=== PATIENT | female | born 1995 | race Caucasian/White ===

== ENCOUNTER 2021-08-06 14:44 | Observation (INO) | payer OTHER, SELFPAY ==
[2021-08-06] VITALS (18 sets, daily range): BP systolic 117; BP diastolic 68–70; PULSE 87–132; O2SAT 100; BMI 28.3
--- NOTE | ~2021-08-06 | US_ITS ---
EXAMINATION: US OB limited w BPP DATE: 08/06/2021 16:33 INDICATION: Contractions during third trimester . Assess amniotic fluid index and biophysica l profile. TECHNIQUE: Real-time pelvic ultrasound was performed. The interpreting radiologist was not present fo r the study. COMPARISON: None. FINDINGS: There is a single living fetus in vertex presentation. The placenta is fundal. heart rate is 1 38 beats per minute (bpm). Normal amniotic fluid index of 15.6 cm (5th%-95%: 7.7-24.9 cm at 36 weeks estimated gestational age) Biophysical profile performed by the technologist: breathing (30 sec sustained breathing in 30 minutes): 2 out of 2 movement (3 gross body movements in 30 minutes): 2 out of 2 tone (one episode of txyncqb-gedjcymcl-hmjohul limb movement): 2 out of 2 Amniotic fluid pocket (2 cm): 2 out of 2 Total score: 8 out of 8 IMPRESSION: 1. Single living fetus in vertex presentation with heart rate of 138 bpm. 2. Biophysical profile 8 out of 8. 3. Normal amniotic fluid index of 15.6 cm. Reviewed, dictated and finalized at location A.
--- NOTE | 2021-08-06 15:34 | OBADM ---
This patient, Dina Martin, admitted to the OB room OB Post 116 for observation. Patient/family oriented to hospital policies and general routines including ID bracelet, bed and alarms, visiting hours, pain management, procedures, bathroom and other care routines, personal items, smoking policy, room service/diet, and visiting hours. Patient/Family are encouraged to report perceived risks to care and to ask questions if they do not understand what they are told or what they should do.
[2021-08-06] MEDS: NIFEdipine 10 MG CAPSULE PO (17:04)
[2021-08-06] MEDS: ACETAMINOPHEN 500 MG TABLET 1000 MG PO (17:18)
--- NOTE | 2021-08-06 17:44 | PC.NURSE ---
0816- Spoke with Mikhail Servin, CNLoida, BPP and alfredito reviewed. Patient now karrie q 2-4 min on monitor. Orders for one time dose of procardia 10 mg to be given PO. Patient denies feeling strong contractions, just feels tightening.
[2021-08-06] MEDS: TERBUTALINE SULFATE 1 MG/ML VIAL 0.25 MG SUB-Q (17:56)
--- NOTE | 2021-08-06 17:56 | PC.NURSE ---
1750- Spoke with Mikhail Servin CNM, patient complains of mild tightening still. contractions palpate mild, though still karrie q2-3. Orders for terbutaline sub q 0.25 mg once.
[2021-08-06 20:35] LABS: Add Urine Microscopic? YES; Amorphous Sediment Urine Few; Appearance Urine Clear (Clear); Bacteria Urine 1+ /hpf; Bilirubin Urine Negative (Negative); Blood Urine Negative (Negative); Color Urine Straw (Yellow); Glucose Urine UA Negative (Negative); Ketones Urine 1+ mg/dL (Negative); Leukocyte Esterase Ur Negative LEU/UL (Negative); Nitrate Urine Negative (Negative); Protein Urine Negative (Negative); RBC Urine 0-2 /hpf (0-2); Specific Grav Ur 1.005 (1.001-1.035); Squamous Epithelial Cell Urine Rare /hpf (Few); Urobilinogen Urine Negative mg/dL (<2.0); WBC Urine 0-3 /hpf
--- NOTE | 2021-08-26 10:00 | PM.OBTRLD ---
OB - Triage/Final Diagnosis Visit Information Comments/Additional reasons for admission: I have assessed the risk for this patient, Dina Martin, and determined that she would benefit from observation care. Evaluation Laboratory results: Laboratory Tests 08/06/21 20:22 Urine Color Straw Urine Appearance Clear Urine pH 6.0 Ur Specific [place] 1.005 Urine Protein Negative Urine Glucose (UA) Negative Urine Ketones 1+ H Ur Blood (Man) Negative Urine Nitrate Negative Urine Bilirubin Negative Urine Urobilinogen Negative Leukocyte Esterase Rfl Negative Urine RBC 0-2 Urine WBC 0-3 Ur Squamous Epith Cells Rare Amorphous Sediment Few H Urine Bacteria 1+ H Final Diagnosis (1) False labor: Code(s): O47.9 - False labor, unspecified Status: Acute
== END 2021-08-06 20:56 | disposition home or self-care (01) ==
PROVIDERS: Advanced Practice Midwife; Admitting Provider Obstetrics & Gynecology; PCP Family Medicine; Referring Provider Advanced Practice Midwife; Visit Provider Obstetrics & Gynecology
DX: O47.03 False labor before 37 completed weeks of gestation, third trimester (principal); Z3A.35 35 weeks gestation of pregnancy
CPT/HCPCS: 76815; 76819; 81001; 96372; A9270; G0378; G0379; J3105

== ENCOUNTER 2021-09-05 10:23 | Inpatient (IN) | payer OTHER, SELFPAY ==
[2021-09-05] VITALS (151 sets, daily range): BP systolic 92–145; BP diastolic 44–127; PULSE 25–162; RESP 18; TEMP 37–37.3; O2SAT 97–100; BMI 29.3
--- NOTE | 2021-09-05 10:23 | LDADM ---
This patient, Dina Martin, was admitted to Labor/Delivery/Recovery 107 on 09/05/21 at 10:23. Plans for labor, pain management and were discussed with patient. Patient/family oriented to hospital policies and general routines including ID bracelet, bed and alarms, visiting hours, pain management, procedures, bathroom and other care routines, personal items, smoking policy, room service/diet and guest tray routines, security routines, and visiting hours. Patient/Family are encouraged to report perceived risks to care and to ask questions if they do not understand what they are told or what they should do. See OBIX for further documentation.
--- OUTSIDE RECORDS SUMMARY | 2021-09-05 10:30 | XMS_ITS ---
:1995 Author Care Team Providers Name Role Phone KATHRINE AMBROSIO MD Primary Care Provider [phone] Allergies Code Code System Name Reaction Severity Status Onset 6157373 RxNorm Coconut Cough Mild Active ? 168261 RxNorm Macrobid Hives Mild to Active ? Moderate Nitrofuran Hives Mild to Active ? Analogues Moderate 7454 RxNorm Nitrofurantoin Hives Mild to Active ? Moderate Medications Name Status Start Date Stop Date ? ? Beano Completed ? 05/16/2021 ceftriaxone 250 mg solution for Completed ? 03/22/2021 injection cephalexin 500 mg capsule Completed ? 2020 TAKE 1 CAPSULE BY MOUTH TWICE A DAY FOR 7 DAYS cephalexin 500 mg tablet Completed ? 021 Take 1 tablet twice a day by oral route for 5 days. ciprofloxacin 500 mg tablet Completed ? 04/2021 Flucelvax Quad (PF) 60 mcg (15 mcg x 4)/0.5 mL IM syri nge Completed ? 01/24/2021 PHARMACY ADMINISTERED 12/06 (21) 1 mg-20 mcg tablet Completed 10/13/2017 10/13/2017 take 1 tablet by oral route every day Junel FE 12/06 (28) 1 mg-20 mcg (21)/75 mg (7) tablet Completed 10/29/2018 11/02/2018 take 1 tablet by oral route every day Microgestin Fe 1.5 (28) 1.5 mg-30 mcg (21)/75 mg (7) tabl et Completed 09/18/2015 10/13/2017 take 1 tablet by oral route every day NuvaRing 0.12 mg-0.015 mg/24 hr vaginal Completed ? 10/30/2020 Insert 1 vaginal ring every month by vaginal route.
--- OUTSIDE RECORDS SUMMARY | 2021-09-05 10:31 | XMS_ITS | Encounter Summary ---
:1995 Author Care Team Providers Name Role Phone Kevin Clark MD Primary Care Provider [phone] Reason for Visit OB visit OB [id number] EDC 09/05/2021 LMP 11/18/2020 Assessment and Plan Assessment Note Patient is _39__weeks . Dis cussed plan. 1. Routine care Discussion Note: None recorded.Patient educational handouts: No information available. Plan of Care Reminders Provider Appointments Induction Bren Cole, 09/11/2021 CNM 4:00PM Lab None ? ? recorded. Referral None ? ? recorded. Procedures None ? ? recorded. Surgeries None ? ? recorded. Imaging None ? ? recorded. Medications Name Start Date ? ? ? Tylenol ? Medications Administered None recorded. Vitals Height Weight BMI Blood Pressure 5 ft 4.5 in 168 lbs 28.4 kg/m2 124/85 mm[Hg] Results Lab Results None recorded. Allergies Code Code System Name Reaction Severity Onset [id number] RxNorm Coconut Cough Mild ? 543249 RxNorm Macrobid Hives Mild to ? Moderate
--- OUTSIDE RECORDS SUMMARY | 2021-09-05 10:31 | XMS_ITS | Encounter Summary ---
:1995 Author Care Team Providers Name Role Phone Kevin Clark MD Primary Care Provider [phone] Reason for Visit OB visit OB [id number] EDC 09/05/2021 LMP 11/18/2020 Assessment and Plan Assessment Note Patient is __40_weeks . Dis cussed plan. 1. Routine care Discussion Note: None recorded.Patient educational handouts: No information available. Plan of Care Reminders Provider Appointments Induction Bren E Kelsey, 09/11/2021 CNM 4:00PM Lab None ? ? recorded. Referral None ? ? recorded. Procedures None ? ? recorded. Surgeries None ? ? recorded. Imaging None ? ? recorded. Medications Name Start Date ? ? ? Tylenol ? Medications Administered None recorded. Vitals Height Weight BMI Blood Pressure 5 ft 4.5 in 170 lbs 28.7 kg/m2 (1) 148/91 mm[H g] (2) 146/90 mm[Hg ] Results Lab Results None recorded. Allergies Code Code System Name Reaction Severity Onset [id number] RxNorm Coconut Cough Mild ? 002138 RxNorm Macrobid Hives Mild to ?
--- OUTSIDE RECORDS SUMMARY | 2021-09-05 10:32 | XMS_ITS | Encounter Summary ---
:1995 Author Care Team Providers Name Role Phone Kevin Clark MD Primary Care Provider [phone] Reason for Visit OB visit Assessment and Plan 1. Routine care Discussion Note: None recorded.Patient [...] BMI Blood Pressure 5 ft 4.5 in 162 lbs 27.4 kg/m2 116/77 mm[Hg] Results Lab Results None recorded. Allergies Code Code System Name Reaction Severity Onset 8386044 RxNorm Coconut Cough Mild ? 473674 RxNorm Macrobid Hives Mild to ? Moderate Nitrofuran Analogues Hives Mild to ? Moderate
--- OUTSIDE RECORDS SUMMARY | 2021-09-05 10:32 | XMS_ITS | Encounter Summary ---
:1995 Author Care Team Providers Name Role Phone Kevin Clark MD Primary Care Provider [phone] Reason for Visit OB visit OB [id number] EDC 09/05/2021 LMP 11/18/2020 Assessment and Plan Assessment Note Patient is _34__weeks . Dis cussed plan. 1. Routine care [...] BMI Blood Pressure 5 ft 4.5 in 164 lbs 27.7 kg/m2 104/67 mm[Hg] Results Lab Results None recorded. Allergies Code Code System Name Reaction Severity Onset 8643533 RxNorm Coconut Cough Mild ? 593397 RxNorm Macrobid Hives Mild to ? Moderate
--- OUTSIDE RECORDS SUMMARY | 2021-09-05 10:32 | XMS_ITS | Encounter Summary ---
:1995 Author Care Team Providers Name Role Phone Kevin Clark MD Primary Care Provider [phone] Reason for Visit OB visit 32w1d Assessment and Plan 1. Routine care Discussion [...] BMI Blood Pressure 5 ft 4.5 in 161 lbs 27.2 kg/m2 120/76 mm[Hg] Results Lab Results None recorded. Allergies Code Code System Name Reaction Severity Onset 9569613 RxNorm Coconut Cough Mild ? 454931 RxNorm Macrobid Hives Mild to ? Moderate Nitrofuran Analogues Hives Mild to ? Moderate
--- OUTSIDE RECORDS SUMMARY | 2021-09-05 10:32 | XMS_ITS | Encounter Summary ---
:1995 Author Care Team Providers Name Role Phone Kevin Clark MD Primary Care Provider [phone] Reason for Visit OB visit 37w2d Assessment and Plan Assessment Note Patient is 37__weeks . Disc ussed plan. 1. Routine care Discussion Note: None recorded.Patient educational handouts: No information available. Plan of Care Reminders Provider Appointments Induction Bren Abrams Kelsey, 09/11/2021 CNM 4:00PM Lab None ? ? recorded. Referral None ? ? recorded. Procedures None ? ? recorded. Surgeries None ? ? recorded. Imaging None ? ? recorded. Medications Name Start Date ? ? ? Tylenol ? Medications Administered None recorded. Vitals Height Weight BMI Blood Pressure 5 ft 4.5 in 169 lbs 28.6 kg/m2 132/76 mm[Hg] Results Lab Results None recorded. Allergies Code Code System Name Reaction Severity Onset 4793627 RxNorm Coconut Cough Mild ? 455446 RxNorm Macrobid Hives Mild to ? Moderate
--- OUTSIDE RECORDS SUMMARY | 2021-09-05 10:32 | XMS_ITS | Encounter Summary ---
:1995 Author Care Team Providers Name Role Phone Kevin Clark MD Primary Care Provider [phone] Reason for Visit OB visit OB [id number] EDC 09/05/2021 lmp 11/18/2020 Assessment and Plan Assessment Note Patient is _36__weeks . Dis cussed plan. 1. Routine care [...] BMI Blood Pressure 5 ft 4.5 in 167 lbs 28.2 kg/m2 118/76 mm[Hg] Results Lab Results None recorded. Allergies Code Code System Name Reaction Severity Onset 0569645 RxNorm Coconut Cough Mild ? 042696 RxNorm Macrobid Hives Mild to ? Moderate
--- OUTSIDE RECORDS SUMMARY | 2021-09-05 10:32 | XMS_ITS | Encounter Summary ---
:1995 Author Care Team Providers Name Role Phone Kevin Clark MD Primary Care Provider [phone] Reason for Visit OB visit OB [id number] EDC 09/05/2021 LMP 11/18/2020 Assessment and Plan Assessment Note Patient is __38_weeks . Dis cussed plan. 1. Routine care [...] ft 4.5 in 168 lbs 28.4 kg/m2 123/81 mm[Hg] Results Lab Results None recorded. Allergies Code Code System Name Reaction Severity Onset 7161112 RxNorm Coconut Cough Mild ? 393100 RxNorm Macrobid Hives Mild to ? Moderate
--- OUTSIDE RECORDS SUMMARY | 2021-09-05 10:33 | XMS_ITS | Encounter Summary ---
:1995 Author Care Team Providers Name Role Phone Kevin Clark MD Primary Care Provider [phone] Reason for Visit OB visit OB [id number] EDC 09/05/2021 LMP 11/18/2020 Assessment and Plan Assessment Note Patient is _28__weeks . Dis cussed plan. 1. Routine care [...] BMI Blood Pressure 5 ft 4.5 in 160 lbs 27 kg/m2 108/66 mm[Hg] Results Lab Results None recorded. Allergies Code Code System Name Reaction Severity Onset 3960543 RxNorm Coconut Cough Mild ? 662911 RxNorm Macrobid Hives Mild to ? Moderate
[2021-09-05 11:46] LABS: Basophils Percent Auto 0.2 % (0.2-1.2); Eosinophils Absolute Auto 0.1 K/mm3 (0-0.3); Eosinophils Percent Auto 0.8 % (0-4.4); Hematocrit 38.3 % (37.0-47.0); Hemoglobin 13.4 g/dL (12.0-15.0); Immature Granulocyte Absolute 0.05 K/mm3 (0.00-0.031); Immature Granulocyte Percent A 0.6 % (0-0.5); Lymphocytes Absolute Auto 2.18 K/mm3 (0.9-3.2); Lymphocytes Percent Auto 26.1 % (18.3-44.2); Mean Corpuscular Hemoglobin 31.2 pg (26-34); Mean Corpuscular Volume 89.3 fl (80-100); Monocytes Absolute Auto 0.7 K/mm3 (0.1-0.6); Monocytes Percent Auto 8.9 % (2.6-8.5); Neutrophils Absolute Auto 5.3 K/mm3 (1.3-6.7); Neutrophils Percent Auto 63.4 % (45.5-73.1); Platelet Count Result 189 k/mm3 (150-375); Red Blood Count 4.29 M/mm3 (4.2-5.4); Red Cell Distribution Width 12.9 % (11.5-14.5); White Blood Count 8.4 K/mm3 (4.5-10.0)
[2021-09-05 11:48] LABS: Add Urine Microscopic? NO; Appearance Urine Clear (Clear); Bilirubin Urine Negative (Negative); Blood Urine Negative (Negative); Color Urine Straw (Yellow); Glucose Urine UA Negative (Negative); Ketones Urine Negative (Negative); Leukocyte Esterase Ur Negative LEU/UL (Negative); Nitrate Urine Negative (Negative); Protein Urine Negative (Negative); Urobilinogen Urine Negative mg/dL (<2.0)
[2021-09-05] MEDS: OXYTOCIN 30 UNITS/NS 500 ML 30 UNITS/500 ML BAG 6 UNITS IV CONT (11:48)
[2021-09-05 11:49] LABS: Specific Grav Ur 1.003 (1.001-1.035)
[2021-09-05] MEDS: LACTATED RINGERS 1,000 ML 125 ML IV CONT ×3 (11:50→23:51)
[2021-09-05 12:01] LABS: Alanine Aminotransferase 16 U/L (4-35); Albumin Level 3.8 g/dL (3.5-5.1); Alkaline Phosphatase 142 U/L (38-126); Anion Gap 8 mmol/L (8-16); Aspartate Amino Transferase 26 U/L (14-36); Bilirubin,Total 0.5 mg/dL (0.2-1.3); Blood Urea Nitrogen 6 mg/dL (7-17); Calcium 9.6 mg/dL (8.4-10.2); Carbon Dioxide 19 mmol/L (22-30); Chloride 111 mmol/L (98-107); Estimated CRCL calculation 120 ml/min; Estimated Glomerular Filt Rate > 60; Glucose 89 mg/dL (65-110); Potassium 3.9 mmol/L (3.4-5.0); Sodium 138 mmol/L (137-145)
--- NOTE | 2021-09-05 12:14 | WPDOBADMIT ---
Obstetrics - Admit Note Admission Note: record reviewed. No pertinent additions to the history and/or any subsequent changes in the physical findings that are not consistent with the expected course of the were found. BP elevated in office, GHTN at 40 wks, MIL cervix 1-2/60/-2, AROm small amount of clear odorless fluid Additions to the history and/or subsequent changes in the physical findings follow. None.
[2021-09-05 12:23] LABS: Uric Acid 6.1 mg/dL (2.5-7.5)
[2021-09-05] MEDS: ONDANSETRON INJ 4 MG/2 ML VIAL IV PUSH (15:16)
--- NOTE | 2021-09-05 16:39 | WPDANESEPP ---
Anes - Eval Pre Procedure Procedure: labor epidural Date/Time: 09/05/21 16:39 Surgeon: mendoza Pre Op Diagnosis: IOL Patient Data Age: 26 Gender: F Height: 1.63 m Weight: 77.5 kg Last Vital Signs Temp 37.3 C 09/05/21 15:30 Pulse 98 09/05/21 16:31 BP 124/66 09/05/21 16:31 Allergies Allergy/AdvReac Type Severity Reaction Status Date / Time nitrofurantoin AdvReac Intermediate hives Verified 01/03/21 16:28 Home Medications Medication Instructions Recorded Confirmed Type PNV cmb#95-ferrous fumarate-FA 1 tablet PO DAILY 08/06/21 09/05/21 History [] calcium carbonate [Tums] 500 mg PO DAILY PRN 09/05/21 09/05/21 History diphenhydramine-acetaminophen 2 tablet PO HS PRN 09/05/21 09/05/21 History [Tylenol PM Extra Strength] Laboratory Tests 09/05/21 09/05/21 09/05/21 11:30 11:30 11:30 WBC 8.4 K/mm3 K/mm3 (4.5-10.0) RBC 4.29 M/mm3 M/mm3 (4.2-5.4) Hgb 13.4 g/dL g/dL (12.0-15.0) Hct 38.3 % % (37.0-47.0) MCV 89.3 fl fl (80-100) MCH 31.2 pg pg (26-34) MCHC 35.0 g/dl g/dl (32-36) RDW 12.9 % % (11.5-14.5) Plt Count 189 k/mm3 k/mm3 (150-375) MPV 11.0 fl H fl (7.4-10.4) Immature Gran % (Auto) 0.6 % H % (0-0.5) Neut % (Auto) 63.4 % % (45.5-73.1) Lymph % (Auto) 26.1 % % (18.3-44.2) [place] % (Auto) 8.9 % H % (2.6-8.5) Eos % (Auto) 0.8 % % (0-4.4) Baso % (Auto) 0.2 % % (0.2-1.2) Lymph # (Auto) 2.18 K/mm3 K/mm3 (0.9-3.2) [place] # (Auto) 0.7 K/mm3 H K/mm3 (0.1-0.6) Eos # (Auto) 0.1 K/mm3 K/mm3 (0-0.3) Baso # (Auto) 0.0 K/mm3 K/mm3 (0.0-0.1) Abs Immat Gran (auto) 0.05 K/mm3 H K/mm3 (0.00-0.031) Absolute Neuts (auto) 5.3 K/mm3 K/mm3 (1.3-6.7) Absolute Nucleated RBC 0.0 K/mm3 K/mm3 (0.0-0.012) Nucleated RBC % 0.0 % % (0.0-0.2) Sodium Potassium Chloride Carbon Dioxide Anion Gap BUN Creatinine Estim Creat Clear Calc Estimated GFR Glucose Uric Acid Cancelled Calcium Total Bilirubin AST ALT Alkaline Phosphatase Total Protein Albumin Urine Color Urine Appearance Urine pH Ur Specific [place] Urine Protein Urine Glucose (UA) Urine Ketones Ur Blood (Man) Urine Nitrate Urine Bilirubin Urine Urobilinogen Leukocyte Esterase Rfl U Random Total Protein Urine Creatinine Protein/Creat Ratio 2 RPR Pending Blood Type Antibody Screen 09/05/21 09/05/21 09/05/21 11:30 11:30 11:30 WBC RBC Hgb Hct MCV MCH MCHC RDW Plt Count MPV Immature Gran % (Auto) Neut % (Auto) Lymph % (Auto) [place] % (Auto) Eos % (Auto) Baso % (Auto) Lymph # (Auto) [place] # (Auto) Eos # (Auto) Baso # (Auto) Abs Immat Gran (auto) Absolute Neuts (auto) Absolute Nucleated RBC Nucleated RBC % Sodium 138 mmol/L mmol/L (137-145) Potassium 3.9 mmol/L mmol/L (3.4-5.0) Chloride 111 mmol/L H mmol/L (98-107) Carbon Dioxide 19 mmol/L L mmol/L (22-30) Anion Gap 8 mmol/L mmol/L (8-16) BUN 6 mg/dL L mg/dL (7-17) Creatinine 0.60 mg/dL L mg/dL (0.7-1.0) Estim Creat Clear Calc
[2021-09-05 18:25] LABS: Creatinine Urine 20.2 mg/dL; Total Protein Urine Random 12 mg/dL; Ur Ttl Prot Creatinine Ratio 0.59 mg/mg (0-0.20)
[2021-09-06] VITALS (39 sets, daily range): BP systolic 120–149; BP diastolic 69–109; PULSE 71–168; RESP 16–20; TEMP 36.7–37.7; O2SAT 84–100
[2021-09-06] MEDS: miSOPROStol 200 MCG TABLET 1000 MCG RECTAL (01:56)
[2021-09-06] MEDS: OXYTOCIN 30 UNITS/NS 500 ML 30 UNITS/500 ML BAG 125 UNITS IV CONT (01:58)
--- NOTE | 2021-09-06 02:00 | P.PCNOB_ITS ---
OB - Delivery Note Procedure Delivery date: 09/06/21 Procedure: vaginal delivery events: Induced HTN Induction method: AROM and per pitocin protocol Delivery monitor: external FHT, external uterine and internal uterine Route of delivery: Episiotomy description: Right Mediolateral (2nd degree with extension to right labia) Delivery repair: vicryl Specimen: Yes Quantitative Blood Loss (ml): 435 Anesthesia type: Epidural Disposition: floor [facility] Date of : 09/06/21 Time of : 01:29 Weeks of gestation at delivery: 40 Infant gender: Female presentation: vertex position: Left Occiput Anterior Placenta delivery description: Spontaneous cord vessel description: 3 Vessels, Nuchal Cord, Loose, Reduced and Clamped/Cut Narrative: heart rate in the 50's, consent from pt, RML, head easily delivered and cord around neck reduced, delivered quickly after, mother and baby in stable condition
[2021-09-06] MEDS: IBUPROFEN 600 MG TABLET PO ×3 (04:03→17:14)
[2021-09-06] MEDS: WITCH HAZEL 40 PADS 1 PAD TOPICAL (04:03)
[2021-09-06] MEDS: BENZOCAINE 20% AER SPR (*SP) 56 GM CAN 1 SPRAY TOPICAL (04:03)
[2021-09-06 07:31] LABS: Rapid Plasma Reagin Non-Reactive (NonReactive)
[2021-09-06] MEDS: DOCUSATE SODIUM 100 MG CAPSULE PO ×2 (09:32→17:14)
[2021-09-06] MEDS: MULTIVIT/MIN/PREN/FOL AC/IRON TABLET 1 TAB PO (09:32)
[2021-09-07 03:00] VITALS: BP 124/84; PULSE 77
[2021-09-07] MEDS: IBUPROFEN 600 MG TABLET PO ×3 (03:05→23:00)
[2021-09-07 05:31] LABS: Hematocrit 31.7 % (37.0-47.0); Hemoglobin 10.8 g/dL (12.0-15.0)
[2021-09-07 07:40] VITALS: BP 126/80; PULSE 71; RESP 18; TEMP 36.6; O2SAT 100
--- NOTE | 2021-09-07 07:45 | PM.OBPNVD ---
OB - PN: Subj Subjective Date/time seen: 09/07/21 07:45 Patient comments: no complaints, pain well controlled, incisional pain, tolerating diet and flatus present OB - PN: Obj Data Labs CBC & Chem 7: 09/07/21 03:02 09/05/21 11:30 Labs: Laboratory Results - last 24 hr 09/07/21 03:02 Hgb 10.8 L Hct 31.7 L OB - PN A/P Plan day: 1 Plan: routine care Comments: No problems, routine care Time Spent With Patient Time: Total time spent is greater than 50% in coordination of care (as documented) at patient's floor/unit and/or counseling patient: Exam Const: General: comfortable, no acute distress and alert Resp: Effort & Inspection: normal respiratory effort Auscultation: no crackles, no rales and no rhonchi Cardio: Rate: regular rate Heart sounds: no click, no murmurs and no rubs GI: Inspection: non-distended GI Palp: No Tenderness to palpation present (GI) Auscultation: normal bowel sounds Other: Incision - CDI Extrem: General: normal to inspection, no pedal edema and no calf tenderness
[2021-09-07] MEDS: MULTIVIT/MIN/PREN/FOL AC/IRON TABLET 1 TAB PO (07:49)
[2021-09-07] MEDS: DOCUSATE SODIUM 100 MG CAPSULE PO ×2 (07:49→19:50)
--- NOTE | 2021-09-07 10:18 | WPDANLDPN2 ---
Anes-Prog Note L&D Date/Time: 09/07/21 10:18 Comfortable throughout: labor and delivery Neuraxial method: epidural Epidural/Spinal procedure site: clean & non-tender Neuro status: Neuro function grossly intact. Cardiovascular status: normal Respiratory status: normal Airway patency: baseline Mental status: baseline Post-Op hydration status: normal Vital Signs: Last Vital Signs Temp 97.8 F 09/07/21 07:40 Pulse 71 09/07/21 07:40 Resp 18 09/07/21 07:40 BP 126/80 09/07/21 07:40 Pulse Ox 100 09/07/21 07:40 Pain score (VAS): 0 I/O: Intake & Output 09/06/21 09/07/21 09/07/21 23:59 07:59 15:59 Intake Total 2300 700 Output Total 3550 2600 Balance -1250 -1900 Post-procedural complaints: none Patient feedback: Patient satisfied with anesthetic care.
[2021-09-07 11:20] VITALS: BP 117/76; PULSE 70; RESP 18; TEMP 37.1; O2SAT 99
[2021-09-07 19:40] VITALS: BP 152/88; PULSE 60; RESP 16; TEMP 36.7
[2021-09-07 23:00] VITALS: BP 126/79; PULSE 61
--- NOTE | 2021-09-07 23:00 | PC.NURSE ---
Patient viewed the discharge video Mother & Baby Care, The First Two Weeks online. Patient was given the opportunity and encouraged to ask questions. Patient verbalized understanding of information shared and has been given the mother/baby guide for home reference.
[2021-09-08] MEDS: BENZOCAINE 20% AER SPR (*SP) 56 GM CAN 1 SPRAY TOPICAL (07:28)
[2021-09-08] MEDS: WITCH HAZEL 40 PADS 1 PAD TOPICAL (07:28)
[2021-09-08] MEDS: MULTIVIT/MIN/PREN/FOL AC/IRON TABLET 1 TAB PO (07:28)
[2021-09-08] MEDS: IBUPROFEN 600 MG TABLET PO (07:28)
[2021-09-08] MEDS: DOCUSATE SODIUM 100 MG CAPSULE PO (07:28)
[2021-09-08] MEDS: LANOLIN (LANSINOH) 7.5 GM CREAM 1 APPLIC TOPICAL (07:29)
[2021-09-08 08:00] VITALS: BP 138/78; PULSE 73; RESP 18; TEMP 36.5
--- NOTE | 2021-09-08 09:33 | P.PNOB_ITS ---
OB - PN: Subj Subjective Date/time seen: 09/08/21 09:33 Patient comments: no complaints, pain well controlled and tolerating diet OB - PN: Obj Data Labs CBC & Chem 7: 09/07/21 03:02 09/05/21 11:30 OB - PN A/P Plan day: 2 Plan: routine care and discharge home Time Spent With Patient Time: Total time spent is greater than 50% in coordination of care (as docume nted) at patient's floor/unit and/or counseling patient: Exam Const: General: comfortable and no acute distress Resp: Effort & Inspection: normal respiratory effort Auscultation: no rales, no rhonchi and no wheezes Cardio: Rate: regular rate Heart sounds: no click, no murmurs and no rubs GI: GI Palp: Yes Soft to palpation and No Tenderness to palpation present (GI) Auscultation: normal bowel sounds Extrem: General: normal to inspection, no pedal edema and no calf tenderness
--- NOTE | 2021-09-08 09:34 | PM.OBDSVD ---
DS: Admitting Diagnosis Discharge Date 09-08-2021 Admitting Diagnosis term DS: Discharge Diagnosis Discharge Diagnosis (1) Term delivered: Code(s): O80 - Encounter for full-term uncomplicated delivery Status: Acute OB - DS: Summary OB Procedures : None OB Procedures Intrapartum: Spontaneous Vag Delivery OB Procedures: : None Time Spent with Patient Time attestation: Total time spent providing and/or coordinating discharge services: DS: Data Data Completed and Pending Pending studies at discharge: Pending at discharge 09/06/21 01:37 Surgical [PTH] Routine Discharge Plan Discharge Patient Disposition: Home Health Service Patient Instructions: Antibiotic Form Stand Alone Forms: General Discharge Information Follow-up/Referrals: Nader Bañuelos MD [Physician] - Discharge Medications: Continued PNV cmb#95-ferrous fumarate-FA [] 28 mg iron- 800 mcg Tablet 1 tablet PO DAILY RF: 0 calcium carbonate [Tums] 200 mg calcium (500 mg) Tablet,Chewable 500 mg PO DAILY PRN (Reason: Heartburn) RF: 0 diphenhydramine-acetaminophen [Tylenol PM Extra Strength] 25-500 mg Tablet 2 tablet PO HS PRN (Reason: Sleep) RF: 0 Date of admission: 09/05/21 10:23 Primary Care Provider: Kevin Clark Admitting Provider: Nader Bañuelos Attending physician on admission: Nader Bañuelos Condition: Stable
--- NOTE | 2021-09-08 12:17 | PC.NURSE ---
Self care and infant care discharge instructions given including follow up visit date and time. Pt. verbalized understanding. No questions or concerns voiced. Very pleasant and cooperative.
[2021-09-10 10:33] VITALS: BP 132/69; PULSE 82; RESP 20; TEMP 36.9; O2SAT 100
== END 2021-09-08 13:10 | disposition home or self-care (01) | DRG 807 ==
LOC: ANHLDR 10:28 → ANHOB2 09-06 04:35
PROVIDERS: Admitting Provider Obstetrics & Gynecology; PCP Family Medicine; Referring Provider Advanced Practice Midwife; Visit Provider Obstetrics & Gynecology
DX: O13.4 Gestational [pregnancy-induced] hypertension without significant proteinuria, complicating childbirth (principal); Z37.0 Single live birth; O70.1 Second degree perineal laceration during delivery; O69.81X0 Labor and delivery complicated by cord around neck, without compression, not applicable or unspecified; Z3A.40 40 weeks gestation of pregnancy
CPT/HCPCS: 36415; 80053; 81003; 82570; 84156; 84550; 85014; 85018; 85025; 86592; 86850; 86900; 86901; 88307; A9270; J2405; J2590; J2795; J7120

== ENCOUNTER 2023-08-18 21:40 | Observation (INO) | payer OTHER, SELFPAY ==
[2023-08-18 22:00] VITALS: PULSE 86; O2SAT 100
[2023-08-18 22:01] VITALS: BP 117/62; PULSE 76; PULSE 79; O2SAT 100
[2023-08-18 22:02] VITALS: BP 117/66; PULSE 73
[2023-08-18 22:33] LABS: Appearance Urine Clear (Clear); Bilirubin Urine Negative (Negative); Blood Urine Negative (Negative); Color Urine Yellow (Yellow); Glucose Urine UA Negative (Negative); Ketones Urine Negative (Negative); Leukocyte Esterase Ur Negative LEU/UL (Negative); Nitrate Urine Negative (Negative); Protein Urine Negative (Negative); Specific Grav Ur 1.004 (1.001-1.035); Urobilinogen Urine 0.2 mg/dL (<2.0); pH Urine 7.5 (5.0-9.0)
[2023-08-18 22:37] LABS: Add Urine Microscopic? NO
--- NOTE | 2023-09-14 20:23 | P.PNOB_ITS ---
OB - Triage/Final Diagnosis Visit Information Comments/Additional reasons for admission: I have assessed the risk for this patient, Dina Martin, and determined that she would benefit from observation care. Evaluation Laboratory results: Laboratory Tests 08/18/23 22:17 Urine Color Yellow Urine Appearance Clear Urine pH 7.5 Ur Specific [place] 1.004 Urine Protein Negative Urine Glucose (UA) Negative Urine Ketones Negative Ur Blood (Man) Negative Urine Nitrate Negative Urine Bilirubin Negative Urine Urobilinogen 0.2 Leukocyte Esterase Rfl Negative Final Diagnosis (1) False labor: Code(s): O47.9 - False labor, unspecified Status: Acute
== END 2023-08-18 23:13 | disposition home or self-care (01) ==
LOC: ANHOBPP 21:45
PROVIDERS: Admitting Provider Obstetrics & Gynecology; PCP Family Medicine; Visit Provider Obstetrics & Gynecology
DX: O47.9 False labor, unspecified (principal); Z3A.00 Weeks of gestation of pregnancy not specified
CPT/HCPCS: 81003; G0378; G0379

== ENCOUNTER 2023-09-08 11:30 | Observation (INO) | payer OTHER, SELFPAY ==
[2023-09-08] VITALS (7 sets, daily range): BP systolic 106–109; BP diastolic 55–59; PULSE 101–115; RESP 18; TEMP 36.6–37.5; BMI 26.1
--- NOTE | ~2023-09-08 | US_ITS ---
EXAMINATION: US renal BI DATE: 09/08/2023 13:48 INDICATION: Right-sided back pain. Known urinary tract infection. TECHNIQUE: Multiple ultrasound grayscale images of the kidneys were obtained. COMPARISON: None. FINDINGS: The right kidney measures 10.9 x 6.1 x 6.3 cm. The left kidney measures 12.4 x 5.2 x 4.8 cm. The kidn eys demonstrate normal echogenicity. There is moderate right-sided and mild left-sided hydronephrosis . The visualized proximal right ureter also appears dilated. No shadowing stones identified. The blad randy is normal. A left-sided ureteral jet. A right-sided ureteral jet but no left-sided ureteral jet i s visualized in the bladder on color Doppler. IMPRESSION: 1. Moderate right hydroureteronephrosis and mild left hydronephrosis. Reviewed, dictated and finalized at location A.
--- NOTE | 2023-09-08 12:14 | PC.NURSE ---
Juli Cole notified of adm for back pain, positive urine culture per office and low grade temp. Orders received.
[2023-09-08] MEDS: HYDROcodone/acetaminophen (*CRX) 5-325 MG TABLET 1 TAB PO ×3 (13:56→22:22)
[2023-09-08] MEDS: LACTATED RINGERS 1,000 ML 125 ML IV CONT ×2 (14:10→20:21)
[2023-09-08] MEDS: cefTRIAXone 2 GM/NS 100 ML 2 GM/100 ML BAG IVPB (14:11)
[2023-09-08 14:25] LABS: Basophils Percent Auto 0.2 % (0.2-1.2); Eosinophils Percent Auto 0.1 % (0-4.4); Hematocrit 35.9 % (37.0-47.0); Hemoglobin 11.6 g/dL (12.0-15.0); Immature Granulocyte Absolute 0.05 K/mm3 (0.00-0.031); Immature Granulocyte Percent A 0.5 % (0-0.5); Lymphocytes Absolute Auto 0.76 K/mm3 (0.9-3.2); Mean Corpuscular HGB Conc 32.3 g/dl (32-36); Mean Corpuscular Hemoglobin 30.6 pg (26-34); Mean Corpuscular Volume 94.7 fl (80-100); Mean Platelet Volume 9.1 fl (7.4-10.4); Neutrophils Percent Auto 83.2 % (45.5-73.1); Platelet Count Result 228 k/mm3 (150-375); Red Blood Count 3.79 M/mm3 (4.2-5.4); Red Cell Distribution Width 13.2 % (11.5-14.5); White Blood Count 10.9 K/mm3 (4.5-10.0)
--- NOTE | 2023-09-08 14:33 | LDADM ---
This patient, Dina Martin, was admitted to OB Post 117 on 09/08/23 at 11:30. Plans for labor, pain management and were discussed with patient. Patient/family oriented to hospital policies and general routines including ID bracelet, bed and alarms, visiting hours, pain management, procedures, bathroom and other care routines, personal items, smoking policy, room service/diet and guest tray routines, infant security routines, and visiting hours. Patient/Family are encouraged to report perceived risks to care and to ask questions if they do not understand what they are told or what they should do. See OBIX for further documentation.
[2023-09-08 14:36] LABS: Alanine Aminotransferase 12 U/L (6-35); Albumin Level 3.5 g/dL (3.5-5.1); Alkaline Phosphatase 116 U/L (38-126); Anion Gap 7 mmol/L (8-16); Aspartate Amino Transferase 21 U/L (14-36); Bilirubin,Total 0.9 mg/dL (0.2-1.3); Blood Urea Nitrogen 4 mg/dL (7-17); Calcium 8.3 mg/dL (8.4-10.2); Carbon Dioxide 18 mmol/L (22-30); Chloride 104 mmol/L (98-107); Estimated CRCL calculation 144 ml/min; Estimated Glomerular Filt Rate > 60; Glucose 68 mg/dL (65-110); Potassium 3.4 mmol/L (3.4-5.0); Sodium 129 mmol/L (137-145)
--- NOTE | 2023-09-08 14:46 | PC.NURSE ---
At 1400, Magy Cole CNM at bedside discussing plan of care with patient. Patient to stay overnight to receive IV fluids and antibiotics. Patient agrees with plan of care at this time. Patient comfortable in bed with warm blankets and heating pad on her back. Menu given to patient with instructions to order dinner when she is ready.
--- NOTE | 2023-09-08 16:28 | PM.IMHP ---
H&P: HPI History of Present Illness Date/Time: 09/08/23 16:28 Chief Complaint: pt arrived to after diagnosed UTI in office, now has complaints of mild fever, low/mid back pain. Denies urinary pressure and frequency. urine culture form office positive for klebsiella pneumoniae. Suspectable to ceftriaxone. + movement Review of Systems Review of Systems: All systems reviewed & are unremarkable except as noted in HPI and below PMFSH Surgical History Surgical History History of tonsillectomy Family History Family History Mother Hypertension Grandparent Malignant neoplasm of prostate Social History Social History Social History: Smoking status: Never smoker Second hand tobacco smoke exposure: No Alcohol intake: current Drinks per week: 2 Substance use: never Substance use type: does not use Living arrangements: with family Occupation/Education: occupation Gender identity (if verbalized by the patient): Female Sexual Orientation (if Verbalized by the Patient): Straight or Heterosexual Spiritual care concerns: No Meds Home Medications and Allergies Home Medications Medication Instructions Recorded Confirmed Type calcium carbonate 200 mg calcium 500 mg PO DAILY PRN Heartburn 09/05/21 01/10/23 History (500 mg) chewable tablet (Tums) diphenhydramine 25 2 tablet PO HS PRN Sleep 09/05/21 01/10/23 History mg-acetaminophen 500 mg tablet (Tylenol PM Extra Strength) sertraline 50 mg tablet 50 mg PO DAILY 01/10/23 01/10/23 History Allergies Allergy/AdvReac Type Severity Reaction Status Date / Time nitrofurantoin AdvReac Intermediate hives Verified 01/10/23 08:59 Vital Signs Vital Signs - 24 hr 09/08/23 12:15 09/08/23 16:12 09/08/23 12:15 Temperature 37.5 C Pulse Rate 106 H 115 H Blood Pressure 106/59 L 109/55 L Oxygen Delivery 09/08/23 14:30 Temperature Pulse Rate Blood Pressure Oxygen Delivery Room Air Exam Const: General: cooperative and ill appearing (cheeks flushed) Chest: Chest palpation & inspection: normal inspection of the chest Resp: Effort & Inspection: normal respiratory effort Cardio: Rate: regular rate Rhythm: regular rhythm GI: Other: gravid/soft Back/Spine/Pelvis: Other: tender over bilateral CVA Neuro: General: patient oriented x3 Extrem: Right lower extremity: normal to inspection Left lower extremity: normal to inspection H&P: Results Labs Labs: Short CBC 09/08/23 Range/Units 13:47 WBC 10.9 H (4.5-10.0) K/mm3 Hgb 11.6 L (12.0-15.0) g/dL Hct 35.9 L (37.0-47.0) % Plt Count 228 (150-375) k/mm3 BMP 09/08/23 13:47 Sodium 129 L Potassium 3.4 Chloride 104 Carbon Dioxide 18 L BUN 4 L Creatinine 0.40 L Glucose 68 Calcium 8.3 L Liver Function 09/08/23 Range/Units 13:47 Total Bilirubin 0.9 (0.2-1.3) mg/dL AST 21 (14-36) U/L ALT 12 (6-35) U/L Alkaline Phosphatase 116 (38-126) U/L Albumin 3.5 (3.5-5.1) g/dL Assessment and Plan Assessment and plan (1) Pyelonephritis affecting : Code(s): O23.00 - Infections of kidney in , unspecified trimester Status: Acute Plan suspect pyelonephritis plan antibiotics, IV hydration and pain management NST Q shift co-managing with Dr. Garza
[2023-09-08] MEDS: ACETAMINOPHEN 325 MG TABLET 650 MG PO ×2 (17:12→23:50)
--- NOTE | 2023-09-08 18:36 | PC.NURSE ---
Spoke with CNM on phone regarding overnight patient care. Verbal orders received to repeat CBC, CMP in AM and keep continuous IV fluids running overnight.
[2023-09-08] MEDS: ONDANSETRON INJ 4 MG/2 ML VIAL IV PUSH (23:52)
[2023-09-09] VITALS (10 sets, daily range): BP systolic 97–102; BP diastolic 51–55; PULSE 86–89; RESP 18; TEMP 36.1–37.4
[2023-09-09] MEDS: LACTATED RINGERS 1,000 ML 125 ML IV CONT ×2 (04:19→12:12)
[2023-09-09 04:39] LABS: Hemoglobin 9.4 g/dL (12.0-15.0); Mean Corpuscular HGB Conc 32.4 g/dl (32-36); Mean Corpuscular Hemoglobin 30.4 pg (26-34); Mean Corpuscular Volume 93.9 fl (80-100); Platelet Count Result 196 k/mm3 (150-375); Red Blood Count 3.09 M/mm3 (4.2-5.4); Red Cell Distribution Width 13.2 % (11.5-14.5); White Blood Count 9.5 K/mm3 (4.5-10.0)
[2023-09-09 04:49] LABS: Potassium 3.4 mmol/L (3.4-5.0)
[2023-09-09 04:51] LABS: Alanine Aminotransferase 12 U/L (6-35); Albumin Level 2.7 g/dL (3.5-5.1); Alkaline Phosphatase 93 U/L (38-126); Anion Gap 6 mmol/L (8-16); Aspartate Amino Transferase 18 U/L (14-36); Bilirubin,Total 0.6 mg/dL (0.2-1.3); Blood Urea Nitrogen 4 mg/dL (7-17); Calcium 8.1 mg/dL (8.4-10.2); Carbon Dioxide 21 mmol/L (22-30); Chloride 107 mmol/L (98-107); Estimated CRCL calculation 184 ml/min; Estimated Glomerular Filt Rate > 60; Glucose 85 mg/dL (65-110); Sodium 134 mmol/L (137-145)
--- NOTE | 2023-09-09 07:35 | P.PNOB_ITS ---
OB - PN: Subj Subjective Date/time seen: 09/09/23 07:35 Interval history: pt here and being treated for suspected pyelonephritis, afebrile overnight, white count has decreased, pt still taking pain medication for back pain, denies vomiting. + movement OB - PN: Obj Data Labs 09/09/23 04:30 09/09/23 04:30 Labs: Laboratory Results - last 24 hr 09/08/23 09/09/23 13:47 04:30 WBC 10.9 H 9.5 RBC 3.79 L 3.09 L Hgb 11.6 L 9.4 L Hct 35.9 L 29.0 L MCV 94.7 93.9 MCH 30.6 30.4 MCHC 32.3 32.4 RDW 13.2 13.2 Plt Count 228 196 MPV 9.1 9.0 Immature Gran % (Auto) 0.5 Neut % (Auto) 83.2 H Lymph % (Auto) 7.0 L [place] % (Auto) 9.0 H Eos % (Auto) 0.1 Baso % (Auto) 0.2 Lymph # (Auto) 0.76 L [place] # (Auto) 1.0 H Eos # (Auto) 0.0 Baso # (Auto) 0.0 Abs Immat Gran (auto) 0.05 H Absolute Neuts (auto) 9.0 H Absolute Nucleated RBC 0.0 Nucleated RBC % 0.0 Sodium 129 L 134 L Potassium 3.4 3.4 Chloride 104 107 Carbon Dioxide 18 L 21 L Anion Gap 7 L 6 L BUN 4 L 4 L Creatinine 0.40 L 0.30 L Estim Creat Clear Calc 144 184 Estimated GFR > 60 > 60 Glucose 68 85 Calcium 8.3 L 8.1 L Total Bilirubin 0.9 0.6 AST 21 18 ALT 12 12 Alkaline Phosphatase 116 93 Total Protein 7.0 6.0 L Albumin 3.5 2.7 L Imaging Radiologist's impression: Impressions Renal Ultrasound 09/08/23 13:59 IMPRESSION: 1. Moderate right hydroureteronephrosis and mild left hydronephrosis. OB - PN A/P Assessment and Plan (1) Pyelonephritis affecting : Code(s): O23.00 - Infections of kidney in , unspecified trimester Status: Acute Plan pyelonephritis continue IV hydration, IV antibiotics plan discharge home this afternoon amoxicillin at pharmacy and will follow as directed paco for pain management at discharge co-managing with DR. Stephani Garza Time Spent With Patient Time: Total time spent is greater than 50% in coordination of care (as documented) at patient's floor/unit and/or counseling patient: Review of Systems Review of Systems: All systems reviewed & are unremarkable except as noted in HPI and below Exam Const: General: cooperative and healthy appearing Chest: Chest palpation & inspection: normal inspection of the chest Resp: Effort & Inspection: normal respiratory effort Cardio: Rate: regular rate Rhythm: regular rhythm GI: Other: soft/gravid Skin: General skin exam: normal color Neuro: General: patient oriented x3 Extrem: Right lower extremity: normal to inspection Left lower extremity: normal to inspection
[2023-09-09] MEDS: HYDROcodone/acetaminophen (*CRX) 5-325 MG TABLET 1 TAB PO ×2 (07:42→12:15)
[2023-09-09] MEDS: ONDANSETRON INJ 4 MG/2 ML VIAL IV PUSH (09:20)
[2023-09-09] MEDS: cefTRIAXone 2 GM/NS 100 ML 2 GM/100 ML BAG IVPB (14:11)
[2023-09-09] MEDS: ACETAMINOPHEN 325 MG TABLET 650 MG PO (14:21)
--- NOTE | 2023-09-10 16:28 | PM.OBTRLD ---
OB - Triage/Final Diagnosis Visit Information Date of evaluation: 09/08/23 Reason for evaluation: other (pyelonephritis) Comments/Additional reasons for admission: I have assessed the risk for this patient, Dina Martin, and determined that she would benefit from observation care. Evaluation Laboratory results: Laboratory Tests 09/08/23 09/09/23 13:47 04:30 WBC 10.9 H 9.5 RBC 3.79 L 3.09 L Hgb 11.6 L 9.4 L Hct 35.9 L 29.0 L MCV 94.7 93.9 MCH 30.6 30.4 MCHC 32.3 32.4 RDW 13.2 13.2 Plt Count 228 196 MPV 9.1 9.0 Immature Gran % (Auto) 0.5 Neut % (Auto) 83.2 H Lymph % (Auto) 7.0 L [place] % (Auto) 9.0 H Eos % (Auto) 0.1 Baso % (Auto) 0.2 Lymph # (Auto) 0.76 L [place] # (Auto) 1.0 H Eos # (Auto) 0.0 Baso # (Auto) 0.0 Abs Immat Gran (auto) 0.05 H Absolute Neuts (auto) 9.0 H Absolute Nucleated RBC 0.0 Nucleated RBC % 0.0 Sodium 129 L 134 L Potassium 3.4 3.4 Chloride 104 107 Carbon Dioxide 18 L 21 L Anion Gap 7 L 6 L BUN 4 L 4 L Creatinine 0.40 L 0.30 L Estim Creat Clear Calc 144 184 Estimated GFR > 60 > 60 Glucose 68 85 Calcium 8.3 L 8.1 L Total Bilirubin 0.9 0.6 AST 21 18 ALT 12 12 Alkaline Phosphatase 116 93 Total Protein 7.0 6.0 L Albumin 3.5 2.7 L
== END 2023-09-09 15:30 | disposition home or self-care (01) ==
PROVIDERS: Advanced Practice Midwife; Admitting Provider Obstetrics & Gynecology; PCP Family Medicine; Visit Provider Obstetrics & Gynecology
DX: O23.02 Infections of kidney in pregnancy, second trimester (principal); Z3A.25 25 weeks gestation of pregnancy
CPT/HCPCS: 36415; 59025; 76775; 80053; 85025; 85027; 96361; 96365; 96374; 96375; A9270; G0378; G0379; J0696; J2405; J7120

== ENCOUNTER 2023-10-15 18:08 | Observation (INO) | payer OTHER, SELFPAY ==
--- NOTE | 2023-10-15 18:08 | OBADM ---
This patient, Dina Martin, admitted to the OB room OB Post 117 for observation. Patient/family oriented to hospital policies and general routines including ID bracelet, bed and alarms, visiting hours, pain management, procedures, bathroom and other care routines, personal items, smoking policy, room service/diet, and visiting hours. Patient/Family are encouraged to report perceived risks to care and to ask questions if they do not understand what they are told or what they should do.
[2023-10-15 18:45] VITALS: BP 106/57; PULSE 76
[2023-10-15 18:46] VITALS: BP 102/62; PULSE 79
[2023-10-15 19:00] VITALS: BP 101/55; PULSE 74
[2023-10-15 19:15] VITALS: BP 102/56; PULSE 73; BMI 26.4
[2023-10-15 19:22] LABS: Appearance Urine Clear (Clear); Bacteria Urine None Seen /hpf; Bilirubin Urine Negative (Negative); Blood Urine Negative (Negative); Color Urine Yellow (Yellow); Glucose Urine UA Negative (Negative); Ketones Urine Negative (Negative); Leukocyte Esterase Ur Trace LEU/UL (NEGATIVE); Need Manual Microscopic Reviewed; Nitrate Urine Negative (Negative); Non Pathogenic Casts 0-2; Protein Urine Negative (Negative); RBC Urine 0-2 /hpf (0-2); Specific Grav Ur 1.004 (1.001-1.035); Squamous Epithelial Cell Urine Occasional /hpf (Few); Urobilinogen Urine 0.2 mg/dL (<2.0); WBC Urine 0-5 /hpf (0-3)
[2023-10-15 19:30] VITALS: BP 99/56; PULSE 75
[2023-10-15 19:35] LABS: Add Urine Microscopic? YES
[2023-10-15 20:05] VITALS: TEMP 36.8
[2023-10-15 20:18] LABS: Glucose Point of Care 62 mg/dl (65-105)
[2023-10-15] MEDS: BETAMETHASONE SOD PHOS/ACETATE 30 MG/5 ML VIAL 12 MG IM (20:20)
[2023-10-15] MEDS: TERBUTALINE SULFATE 1 MG/ML VIAL 0.25 MG SUB-Q (20:20)
--- NOTE | 2023-10-16 17:08 | P.PNOB_ITS ---
OB - Triage/Final Diagnosis Visit Information Date of evaluation: 10/15/23 Reason for evaluation: threatened labor Comments/Additional reasons for admission: I have assessed the risk for this patient, Dina Martin, and determined that she would benefit from observation care. Evaluation Laboratory results: Laboratory Tests 10/15/23 10/15/23 18:44 20:14 POC Capillary Glucose 62 L Urine Color Yellow Urine Appearance Clear Urine pH 7.0 Ur Specific [place] 1.004 Urine Protein Negative Urine Glucose (UA) Negative Urine Ketones Negative Ur Blood (Man) Negative Urine Nitrate Negative Urine Bilirubin Negative Urine Urobilinogen 0.2 Ur Leukocyte Esterase Trace H Add Ur Microanalysis Reviewed Urine RBC 0-2 Urine WBC 0-5 Ur Squamous Epith Cells Occasional Urine Bacteria None seen Urine Casts 0-2 Vital signs: Vital Signs - 24 hr 10/15/23 18:45 10/15/23 18:46 10/15/23 19:00 Temperature Pulse Rate 76 79 74 Blood Pressure 106/57 L 102/62 101/55 L Oxygen Delivery 10/15/23 19:15 10/15/23 19:30 10/15/23 20:05 Temperature 36.8 C Pulse Rate 73 75 Blood Pressure 102/56 L 99/56 L Oxygen Delivery 10/15/23 19:15 Temperature Pulse Rate Blood Pressure Oxygen Delivery Room Air
== END 2023-10-15 21:40 | disposition home or self-care (01) ==
PROVIDERS: Advanced Practice Midwife; Admitting Provider Obstetrics & Gynecology; PCP Family Medicine; Visit Provider Obstetrics & Gynecology
DX: O47.03 False labor before 37 completed weeks of gestation, third trimester (principal); Z3A.30 30 weeks gestation of pregnancy
CPT/HCPCS: 81001; 82948; 87086; 87088; 96372; G0378; G0379; J0702; J3105

== ENCOUNTER 2023-10-16 20:48 | Outpatient (CLI) | payer OTHER, SELFPAY ==
[2023-10-16] MEDS: BETAMETHASONE SOD PHOS/ACETATE 30 MG/5 ML VIAL 12 MG IM (20:58)
== END 2023-10-16 20:49 | disposition home or self-care (01) ==
LOC: ANHOBOP 20:51
PROVIDERS: PCP Family Medicine; Visit Provider Obstetrics & Gynecology
DX: Z34.90 Encounter for supervision of normal pregnancy, unspecified, unspecified trimester (principal); Z3A.00 Weeks of gestation of pregnancy not specified
CPT/HCPCS: 96372; J0702

== ENCOUNTER 2023-10-22 16:15 | Observation (INO) | payer OTHER, SELFPAY ==
[2023-10-22 16:30] VITALS: BP 107/62; PULSE 96
[2023-10-22 16:31] VITALS: BP 106/62; PULSE 91
[2023-10-22 16:45] VITALS: BP 108/61; PULSE 85
[2023-10-22 17:00] VITALS: BP 108/63; PULSE 91
--- NOTE | 2023-10-23 15:20 | PM.OBTRLD ---
OB - Triage/Final Diagnosis Visit Information Date of evaluation: 10/22/23 Reason for evaluation: threatened labor Comments/Additional reasons for admission: I have assessed the risk for this patient, Dina Martin, and determined that she would benefit from observation care. Evaluation Vital signs: Vital Signs - 24 hr 10/22/23 16:30 10/22/23 16:31 10/22/23 16:45 Pulse Rate 96 91 85 Blood Pressure 107/62 106/62 108/61 Oxygen Delivery 10/22/23 17:00 10/22/23 16:30 Pulse Rate 91 Blood Pressure 108/63 Oxygen Delivery Room Air
== END 2023-10-22 17:16 | disposition home or self-care (01) ==
PROVIDERS: Admitting Provider Obstetrics & Gynecology; PCP Family Medicine; Visit Provider Obstetrics & Gynecology
DX: O47.03 False labor before 37 completed weeks of gestation, third trimester (principal); Z3A.31 31 weeks gestation of pregnancy
CPT/HCPCS: G0378; G0379

== ENCOUNTER 2023-10-29 17:57 | Observation (INO) | payer OTHER, SELFPAY ==
[2023-10-29] VITALS (17 sets, daily range): BP systolic 117; BP diastolic 71; PULSE 70–104; O2SAT 97–100; BMI 27.6
--- NOTE | 2023-10-29 18:45 | P.HP_ITS ---
H&P: HPI History of Present Illness Date/Time: 10/29/23 18:45 Chief Complaint: pt presents with increase in contractions, taking procardia 30mg xl daily. betamethasone has been given x 2 at previous admission. complicated by history of pyelonephritis and is on daily keflex. FHR category 1 with uterine irritability [facility] Surgical History Surgical History History of tonsillectomy Family History Family History Mother Hypertension Grandparent Malignant neoplasm of prostate Social History Social History Social History: Smoking status: Never smoker Second hand tobacco smoke exposure: No Alcohol intake: current Drinks per week: 2 Substance use: never Substance use type: does not use Living arrangements: with family Occupation/Education: occupation Gender identity (if verbalized by the patient): Female Sexual Orientation (if Verbalized by the Patient): Straight or Heterosexual Spiritual care concerns: No Meds Home Medications and Allergies Home Medications Medication Instructions Recorded Confirmed Type calcium carbonate 200 mg calcium 500 mg PO DAILY PRN Heartburn 09/05/21 10/29/23 History (500 mg) chewable tablet (Tums) diphenhydramine 25 2 tablet PO HS PRN Sleep 09/05/21 01/10/23 History mg-acetaminophen 500 mg tablet (Tylenol PM Extra Strength) A/B/C/D-E Vitamins 10/29/23 History aspirin 81 mg tablet mg PO 10/29/23 History cephalexin 500 mg tablet mg 10/29/23 History nifedipine 30 mg tablet,extended mg PO 10/29/23 History release 24 hr (Procardia XL) Allergies Allergy/AdvReac Type Severity Reaction Status Date / Time nitrofurantoin AdvReac Intermediate hives Verified 01/10/23 08:59 Vital Signs Vital Signs - 24 hr 10/29/23 18:14 Pulse Rate 86 Blood Pressure 117/71 Exam Const: General: cooperative Chest: Chest palpation & inspection: normal inspection of the chest Resp: Effort & Inspection: normal respiratory effort Cardio: Rate: regular rate GI: Other: soft Back/Spine/Pelvis: Back: no CVA tenderness Skin: General skin exam: normal color Extrem: Right lower extremity: normal to inspection Left lower extremity: normal to inspection Psych: Appearance: grossly normal Assessment and Plan Assessment and plan (1) contractions: Code(s): O47.00 - False labor before 37 completed weeks of gestation, unspecified trimester Status: Acute Plan labor contractions continue to monitor terbutaline continue procardia xl 30mg daily
[2023-10-29] MEDS: TERBUTALINE SULFATE 1 MG/ML VIAL 0.25 MG SUB-Q (19:02)
--- NOTE | 2023-10-30 08:28 | PM.OBTRLD ---
OB - Triage/Final Diagnosis Visit Information Date of evaluation: 10/29/23 Reason for evaluation: threatened labor Comments/Additional reasons for admission: I have assessed the risk for this patient, Dina Martin, and determined that she would benefit from observation care. Evaluation Vital signs: Vital Signs - 24 hr 10/29/23 18:14 10/29/23 19:06 10/29/23 19:11 Pulse Rate 86 Blood Pressure 117/71 Pulse Oximetry 100 99 10/29/23 19:13 10/29/23 19:18 10/29/23 19:23 Pulse Rate Blood Pressure Pulse Oximetry 99 99 100 10/29/23 19:28 10/29/23 19:33 10/29/23 19:38 Pulse Rate Blood Pressure Pulse Oximetry 100 100 100 10/29/23 19:43 10/29/23 19:48 10/29/23 19:53 Pulse Rate Blood Pressure Pulse Oximetry 99 100 100 10/29/23 19:58 10/29/23 20:01 10/29/23 20:03 Pulse Rate Blood Pressure Pulse Oximetry 100 100 100 10/29/23 20:05 10/29/23 20:10 Pulse Rate Blood Pressure Pulse Oximetry 100 97
== END 2023-10-29 20:26 | disposition home or self-care (01) ==
PROVIDERS: Admitting Provider Obstetrics & Gynecology; PCP Family Medicine; Visit Provider Obstetrics & Gynecology
DX: O47.03 False labor before 37 completed weeks of gestation, third trimester (principal); Z3A.32 32 weeks gestation of pregnancy
CPT/HCPCS: 59025; 96372; G0378; G0379; J3105

== ENCOUNTER 2023-11-11 21:38 | Observation (INO) | payer OTHER, SELFPAY ==
[2023-11-11 22:26] VITALS: BMI 28.0
[2023-11-11 23:02] VITALS: BP 113/53
--- NOTE | 2023-11-12 11:02 | PM.OBTRLD ---
OB - Triage/Final Diagnosis Visit Information Comments/Additional reasons for admission: I have assessed the risk for this patient, Dina Martin, and determined that she would benefit from observation care. Evaluation Vital signs: Vital Signs - 24 hr 11/11/23 23:02 Blood Pressure [Left Arm] 113/53 L Final Diagnosis (1) contractions: Code(s): O47.00 - False labor before 37 completed weeks of gestation, unspecified trimester Status: Acute
== END 2023-11-11 23:05 | disposition home or self-care (01) ==
PROVIDERS: Admitting Provider Obstetrics & Gynecology; PCP Family Medicine; Visit Provider Obstetrics & Gynecology
DX: O47.03 False labor before 37 completed weeks of gestation, third trimester (principal); Z3A.34 34 weeks gestation of pregnancy
CPT/HCPCS: 59025; G0378; G0379

== ENCOUNTER 2023-12-19 06:05 | Inpatient (IN) | payer OTHER, SELFPAY ==
[2023-12-19] VITALS (100 sets, daily range): BP systolic 110–155; BP diastolic 58–139; PULSE 61–118; RESP 16–18; TEMP 36.4–37.2; O2SAT 100; BMI 28.3
--- NOTE | 2023-12-19 06:49 | LDADM ---
This patient, Dina Martin, was admitted to Labor/Delivery/Recovery 107 on 12/19/23 at 06:05. Plans for labor, pain management and were discussed with patient. Patient/family oriented to hospital policies and general routines including ID bracelet, bed and alarms, visiting hours, pain management, procedures, bathroom and other care routines, personal items, smoking policy, room service/diet and guest tray routines, security routines, and visiting hours. Patient/Family are encouraged to report perceived risks to care and to ask questions if they do not understand what they are told or what they should do. See OBIX for further documentation.
[2023-12-19] MEDS: OXYTOCIN 30 UNITS/NS 500 ML 30 UNITS/500 ML BAG IV CONT (07:10)
[2023-12-19] MEDS: LACTATED RINGERS 1,000 ML 125 ML IV CONT ×2 (07:10→12:01)
--- NOTE | 2023-12-19 07:24 | WPDOBADMIT ---
Obstetrics - Admit Note Admission Note: record reviewed. No pertinent additions to the history and/or any subsequent changes in the physical findings that are not consistent with the expected course of the were found. Additions to the history and/or subsequent changes in the physical findings follow. IOL, SVE 2/-2 AROM small amount of clear, odorless fluid, anticipate vaginal delivery
[2023-12-19 07:25] LABS: Basophils Percent Auto 0.3 % (0.2-1.2); Eosinophils Absolute Auto 0.1 K/mm3 (0-0.3); Eosinophils Percent Auto 0.9 % (0-4.4); Hemoglobin 12.8 g/dL (12.0-15.0); Immature Granulocyte Absolute 0.04 K/mm3 (0.00-0.031); Immature Granulocyte Percent A 0.5 % (0-0.5); Lymphocytes Absolute Auto 2.27 K/mm3 (0.9-3.2); Lymphocytes Percent Auto 29.6 % (18.3-44.2); Mean Corpuscular HGB Conc 32.8 g/dl (32-36); Mean Corpuscular Volume 91.5 fl (80-100); Mean Platelet Volume 10.6 fl (7.4-10.4); Monocytes Absolute Auto 0.7 K/mm3 (0.1-0.6); Monocytes Percent Auto 9.2 % (2.6-8.5); Neutrophils Absolute Auto 4.6 K/mm3 (1.3-6.7); Neutrophils Percent Auto 59.5 % (45.5-73.1); Platelet Count Result 203 k/mm3 (150-375); Red Blood Count 4.26 M/mm3 (4.2-5.4); Red Cell Distribution Width 13.5 % (11.5-14.5); White Blood Count 7.7 K/mm3 (4.5-10.0)
[2023-12-19] MEDS: SERTRALINE HCL 50 MG TABLET 100 MG PO (10:02)
--- NOTE | 2023-12-19 11:58 | WPDANESEPP ---
Anes - Eval Pre Procedure Procedure: labor epidural Date/Time: 12/19/23 11:58 Surgeon: Edda Preop Diagnosis: pain during labor Pre Op Diagnosis: Induction of Labor Patient Data Age: 28 Gender: F Height: 1.63 m Weight: 75 kg Last Vital Signs Temp 36.5 C 12/19/23 09:30 Pulse 77 12/19/23 11:46 Resp 18 12/19/23 09:30 BP 131/70 12/19/23 11:46 Pulse Ox 100 12/19/23 11:57 O2 Del Method Room Air 12/19/23 06:47 Allergies Allergy/AdvReac Type Severity Reaction Status Date / Time nitrofurantoin AdvReac Intermediate hives Verified 12/03/23 15:38 Home Medications Medication Instructions Recorded Confirmed Type calcium carbonate 200 mg calcium 500 mg PO DAILY PRN Heartburn 09/05/21 12/19/23 History (500 mg) chewable tablet (Tums) diphenhydramine 25 2 tablet PO HS PRN Sleep 09/05/21 12/03/23 History mg-acetaminophen 500 mg tablet (Tylenol PM Extra Strength) aspirin 81 mg tablet 81 mg PO DAILY 10/29/23 12/03/23 History cephalexin 500 mg tablet 500 mg PO DAILY 10/29/23 12/03/23 History sertraline 100 mg tablet 100 mg PO DAILY 12/19/23 12/19/23 History Laboratory Tests 12/19/23 06:25 WBC 7.7 K/mm3 (4.5-10.0) RBC 4.26 M/mm3 (4.2-5.4) Hgb 12.8 D g/dL (12.0-15.0) Hct 39.0 % (37.0-47.0) MCV 91.5 fl (80-100) MCH 30.0 pg (26-34) MCHC 32.8 g/dl (32-36) RDW 13.5 % (11.5-14.5) Plt Count 203 k/mm3 (150-375) MPV 10.6 H fl (7.4-10.4) Immature Gran % (Auto) 0.5 % (0-0.5) Neut % (Auto) 59.5 % (45.5-73.1) Lymph % (Auto) 29.6 % (18.3-44.2) [place] % (Auto) 9.2 H % (2.6-8.5) Eos % (Auto) 0.9 % (0-4.4) Baso % (Auto) 0.3 % (0.2-1.2) Lymph # (Auto) 2.27 K/mm3 (0.9-3.2) [place] # (Auto) 0.7 H K/mm3 (0.1-0.6) Eos # (Auto) 0.1 K/mm3 (0-0.3) Baso # (Auto) 0.0 K/mm3 (0.0-0.1) Abs Immat Gran (auto) 0.04 H K/mm3 (0.00-0.031) Absolute Neuts (auto) 4.6 K/mm3 (1.3-6.7) Absolute Nucleated RBC 0.0 K/mm3 (0.0-0.012) Nucleated RBC % 0.0 % (0.0-0.2) RPR Pending Blood Type B Positive Antibody Screen Negative Patient hx anesthesia problems: none Family hx anesthesia problems: none Results Review: All pre-operative results and documents have been reviewed as part of the pre-operative evaluation. [facility] Surgical History Surgical History History of tonsillectomy Family History Family History Mother Hypertension Grandparent Malignant neoplasm of prostate Social History Social History Social History: Smoking status: Never smoker Second hand tobacco smoke exposure: No Alcohol intake: current Drinks per week: 2 Substance use: never Substance use type: does not use Do You Feel Safe in your Home?: Yes Lack of Transportation: No Lack of Food: Never True Current Housing: I Have Housing Concerned About Future Housing: No Difficulty Paying Gas/Electric Bills: No Difficulty Paying for Meds: No Currently Unemployed: No Education: High School Diploma/GED Difficulty w/ Childcare or Family Care: No Living arrangements: with family Occupation/Education: occupation Gender identity (if verbalized by the patient): Female Sexual Orientation (if Verbalized by the Patient): Straight or Heterosexual Spiritual care concerns: No Exam Day of Procedure 12/19/23 11:58 Patient weight: normal Heart: regular rate and rhythm Lungs: normal air movement Airway: Mallampati scale class II Neurological: alert and oriented
[2023-12-19 14:01] LABS: Rapid Plasma Reagin Non-Reactive (NonReactive)
--- NOTE | 2023-12-19 15:47 | P.PCNOB_ITS ---
OB - Vaginal Delivery Note Procedure Delivery date: 12/19/23 Induction method: AROM and Per Pitocin Protocol Delivery monitor: External FHT and Internal Uterine Route of delivery: Episiotomy description: None Laceration Description: Periurethral Delivery repair: vicryl Specimen: No Quantitative Blood Loss (ml): 100 Anesthesia type: Epidural Disposition: Floor [place] Baby Date of : 12/19/23 Time of : 15:35 Weeks of gestation at delivery: 39 Infant gender: Female Weight (pounds): 7 Weight (ounces): 14 presentation: vertex position: Left Occiput Anterior Placenta delivery description: Spontaneous Cord Vessel Description: 3 Vessels, Nuchal Cord (x3), Loose and Reduced Narrative: mother and baby in stable condition
[2023-12-19] MEDS: OXYTOCIN 30 UNITS/NS 500 ML 30 UNITS/500 ML BAG 125 UNITS IV CONT (16:06)
[2023-12-19] MEDS: miSOPROStol 200 MCG TABLET 1000 MCG (16:11)
[2023-12-19] MEDS: IBUPROFEN 600 MG TABLET PO ×2 (19:30→19:45)
[2023-12-19] MEDS: WITCH HAZEL 40 PADS 1 PAD TOPICAL (19:40)
[2023-12-19] MEDS: BENZOCAINE 20% AER SPR (*SP) 56 GM CAN 1 SPRAY TOPICAL (19:40)
--- NOTE | 2023-12-19 19:45 | OBPPTRN ---
Patient transferred to post room #280 via wheelchair. Support person present. Oriented to unit, room, information board, rooming in, admission packet and security measures. Patient verbalizes understanding.
[2023-12-19] MEDS: ACETAMINOPHEN 325 MG TABLET 650 MG PO ×2 (21:15→23:15)
[2023-12-20] MEDS: IBUPROFEN 600 MG TABLET PO ×3 (02:00→17:29)
[2023-12-20 04:00] VITALS: BP 105/59; PULSE 67; RESP 16; TEMP 36.6; O2SAT 100
[2023-12-20 04:46] LABS: Hematocrit 32.4 % (37.0-47.0); Hemoglobin 10.9 g/dL (12.0-15.0)
[2023-12-20] MEDS: ACETAMINOPHEN 325 MG TABLET 650 MG PO (05:00)
[2023-12-20 08:30] VITALS: BP 112/67; PULSE 73; RESP 18; TEMP 36.7; O2SAT 100
[2023-12-20] MEDS: MULTIVIT/MIN/PREN/FOL AC/IRON TABLET 1 TAB PO (08:30)
[2023-12-20] MEDS: DOCUSATE SODIUM 100 MG CAPSULE PO ×2 (08:30→17:29)
[2023-12-20] MEDS: SERTRALINE HCL 50 MG TABLET 100 MG PO (08:35)
--- NOTE | 2023-12-20 09:44 | WPDANLDPN2 ---
Anes-Prog Note L&D Date/Time: 12/20/23 09:44 Comfortable throughout: labor and delivery Neuraxial method: epidural Epidural/Spinal procedure site: clean & non-tender Neuro status: Neuro function grossly intact. Cardiovascular status: normal Respiratory status: normal Airway patency: baseline Mental status: baseline Post-Op hydration status: normal Vital Signs: Last Vital Signs Temp 36.6 C 12/20/23 04:00 Pulse 67 12/20/23 04:00 Resp 16 12/20/23 04:00 BP 105/59 L 12/20/23 04:00 Pulse Ox 100 12/20/23 04:00 O2 Del Method Room Air 12/20/23 04:00 Pain score (VAS): 3 I/O: Intake & Output 12/19/23 12/20/23 12/20/23 23:59 07:59 15:59 Intake Total 500 Output Total 255 Balance 245 Post-procedural complaints: none Patient feedback: Patient satisfied with anesthetic care.
--- NOTE | 2023-12-20 10:43 | PM.OBPNVD ---
OB - PN: Subj Subjective Date/time seen: 12/20/23 10:43 Patient comments: no complaints, pain well controlled, incisional pain, tolerating diet and flatus present OB - PN: Obj Data Labs 12/20/23 05:00 Labs: Laboratory Results - last 24 hr 12/19/23 12/20/23 06:25 05:00 Hgb 10.9 L Hct 32.4 L RPR Non-reactive OB - PN A/P Plan day: 1 Plan: routine care Comments: No problems, routine care Time Spent With Patient Time: Total time spent is greater than 50% in coordination of care (as documented) at patient's floor/unit and/or counseling patient: Exam Const: General: comfortable, no acute distress and alert Resp: Effort & Inspection: normal respiratory effort Auscultation: no crackles, no rales and no rhonchi Cardio: Rate: regular rate Heart sounds: no click, no murmurs and no rubs GI: Inspection: non-distended GI Palp: No Tenderness to palpation present (GI) Auscultation: normal bowel sounds Other: Incision - CDI Extrem: General: normal to inspection, no pedal edema and no calf tenderness
--- NOTE | 2023-12-20 10:44 | PM.OBDSVD ---
DS: Admitting Diagnosis Discharge Date December 20, 2023 Admitting Diagnosis term OB - DS: Summary OB Procedures : None OB Procedures Intrapartum: Spontaneous Vag Delivery OB Procedures: : None Peripartum Data Laceration Description: Periurethral Episiotomy description: None Time Spent with Patient Time attestation: Total time spent providing and/or coordinating discharge services: DS: Data Data Completed and Pending Labs on day of discharge: Labs from last 24 hours 12/20/23 12/19/23 05:00 06:25 Hgb 10.9 L Hct 32.4 L RPR Non-reactive Discharge Plan Discharge Discharging Clinician: Nader Bañuelos Patient Disposition: Home, Self-Care Activity: pelvic rest Diet: regular Patient Instructions: Antibiotic Form Stand Alone Forms: General Discharge Information Follow-up/Referrals: Nader Bañuelos MD [Physician] - Discharge Medications: Continued calcium carbonate [Tums] 200 mg calcium (500 mg) Tablet,Chewable 500 mg PO DAILY PRN (Reason: Heartburn) diphenhydramine-acetaminophen [Tylenol PM Extra Strength] 25-500 mg Tablet 2 tablet PO HS PRN (Reason: Sleep) cephalexin 500 mg Tablet 500 mg PO DAILY aspirin 81 mg Tablet 81 mg PO DAILY sertraline 100 mg Tablet 100 mg PO DAILY Date of admission: 12/19/23 06:05 Primary Care Provider: Kevin Clark Admitting Provider: Nader Bañuelos Attending physician on admission: Nader Bañuelos Condition: Stable
[2023-12-22 09:33] VITALS: BP 111/73; PULSE 77; RESP 18; TEMP 36.9; O2SAT 100
== END 2023-12-20 18:22 | disposition home or self-care (01) | DRG 807 ==
LOC: ANHLDR 06:11 → ANHOB2 20:56
PROVIDERS: Advanced Practice Midwife; Admitting Provider Obstetrics & Gynecology; PCP Family Medicine; Visit Provider Obstetrics & Gynecology
DX: O69.81X0 Labor and delivery complicated by cord around neck, without compression, not applicable or unspecified (principal); Z37.0 Single live birth; Z3A.39 39 weeks gestation of pregnancy; O71.82 Other specified trauma to perineum and vulva
CPT/HCPCS: 36415; 85014; 85018; 85025; 86592; 86850; 86900; 86901; A9270; J2590; J2795; J7120

== ENCOUNTER 2025-07-13 17:06 | Outpatient (CLI) | payer OTHER, SELFPAY ==
--- NOTE | ~2025-07-13 | US_ITS ---
EXAMINATION: US renal BI, 07/13/2025 16:30 CDT HISTORY: Flank pain Comparison: None Technique: [place]oba-scale and color Doppler images were obtained. Findings: KIDNEYS: Renal cortices intact, no solid masses, cysts or calculi, no hydronephrosis. Right Kidney: Right kidney 11.2 x 5.1 x 4.8 cm. Left Kidney: Left kidney 12.2 x 4.5 x 3.9 cm. Bladder: The bladder is unremarkable. . Impression: No acute abnormality. Reviewed, dictated and finalized at location A. Impression: No acute abnormality.
--- OUTSIDE RECORDS SUMMARY | 2025-07-13 17:12 | XMS_ITS | Clinical Summary ---
Author Organization [facility] [email or web address] Address [address] [place] [address] Care Team Providers Care Occ Therapist Name Role Phone Kevin Clark MD Primary Care Provider [phone] Mark Alfonso MD Unavailable Source Comments [facility] [email or web address],non-owned Affiliates and Associated Physician Practices is amultiple site organization consisting of ambulatory clinics and hospital sitesin [place], [place], [place] and [place]. This disclosure is being madepursuant to the Care Everywhere program and may not contain all information available regarding this patient. Last updated 18.[facility] [email or web address] Allergies Active Allergy Reactions Criticality Noted Date Comments Coconut Oil Cough 10/13/2017 Nitrofurantoin Urticaria Medium 10/29/2018 Medications * Be aware that medications may not be up to date on this document. Alwaysverify current medications with the patient. 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 Gender Identity Not on file Sexual Orientation Not on file Last Filed Vital Signs Vital Sign Reading Time Taken Comments Blood Pressure 124/70 11/16/2018 12:40 PM AWNING HANGER HELPER Pulse 72 11/16/2018 12:40 PM AWNING HANGER HELPER Temperature 36.7 C (98.1 F) 11/16/2018 12:40 PM AWNING HANGER HELPER Respiratory Rate 16 11/16/2018 12:40 PM AWNING HANGER HELPER Oxygen Saturation 97% 11/16/2018 12:40 PM AWNING HANGER HELPER Inhaled Oxygen Concentration - - Weight 63.5 kg (140 lb) 11/16/2018 12:40 PM AWNING HANGER HELPER Height 165.1 cm (5' 5) 11/16/2018 12:40 PM AWNING HANGER HELPER Body Mass Index 23.3 11/16/2018 12:40 PM AWNING HANGER HELPER Plan of Treatment Health Maintenance Due Date Last Done Comments HIV SCREENING 2008 HEPATITIS C SCREENING 08/13/2011 DTAP/TDAP/TD VACCINES (1 - Tdap) 2012 HEPATITIS B VACCINE (1 of 3 - 19+ 3-dose series) 2012 HPV VACCINE (1 - 3-dose SCDM series) 2020 COVID-19 VACCINE (1 - 2023-2 5 season) 2024 DEPRESSION SCREENING 11/17/2024 INFLUENZA VACCINE (#1) 2025 ZOSTER VACCINE (1 of 2) 2043 HIB VACCINE Aged Out No longer eligi ble based on patient's age to complete this topic MENINGOCOCCAL (Group B) VACC INE SHARED DECISION-MAKING Aged Out No longer eligibl e based on patient's age to complete this topic MENINGOCOCCAL GROUPS A/C/Y/W VACCINE Aged Out No longer eligible b ased on patient's age to complete this topic PNEUMOCOCCAL VACCINE Aged Out No long er eligible based on patient's age to complete [place] [id number] [facility] MANAGED MEDICARE ADV Care Teams Occ Therapist Relationship Specialty Start Date End Date Kevin Clark MD [address] [place] [address] PCP - General 09/10/21 Mark Alfonso MD [facility] [place] [address] Family Medicine 09/10/21
--- OUTSIDE RECORDS SUMMARY | 2025-07-13 17:12 | XMS_ITS | Clinical Summary ---
Author Organization [facility] Address [address] [place] [address] Phone Care Team Providers Care Bun Icer Name Role Phone Kevin Clark MD Primary Care Provider Allergies Active Allergy Reactions Criticality Noted Date Comments Coconut Cough Low 05/04/2025 Coconut Oil Cough Low 10/13/2017 Nitrofuran Analogues Hives Medium 05/04/2025 Nitrofurantoin Hives,Urticaria Medium 10/29/2018 Medications sertraline (ZOLOFT) 100 mg tablet Take 1 tablet (100 mg total) by mouth daily Active vit 42-gpol-uepwe-dh a 27mg iron- 800 mcg-250 mg capsule Take by mouth Active cholecalciferol (VITAMIN D-3) 2000 unit tablet Take 1 tablet (2,000 Units total) by mouth daily Active loratadine (CLARITIN) 10 mg tablet Take 1 tablet (10 mg total) by mouth daily Active Active Problems Problem Noted Date Diagnosed Date Shortness of breath 05/13/2025 Precordial pain 05/13/2025 Palpitations 05/13/2025 Assessment & Plan (06/15/2025 1:56 PM CDT): -1 episode 05/04/2025 without recurrence -72 hour Holter monitor showing no significant events -Currently asymptomatic with no recurrence of palpitations or shortness of breath -advised to follow up with Cardiology in the future if needed for recurrence of symptoms and can do a 30 day event monitor 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 05/04/2025 Overview (05/04/2025): zoloft 50mg increase to 100mg daily Nausea and vomiting 05/04/2025 Overview (05/04/2025): zofran Pyelonephritis 05/04/2025 Overview (05/04/2025): suppression allergic to macrobid will do keflex 500mg daily High blood leukocyte count 12/28/2018 Overview (05/04/2025): Elevated white blood cell count, unspecified;Recorded Elsewhere: No Location: [facility] Source: EHR Chronic: N Practice ID: [id number] Billable Time: 01:45:00 PM Encounters Date Type Department Care Team Description 06/15/2025 1:30 PM CDT Office Visit [facility] Cardiology [address] [address] Princess Paul NP Palpitations (Primary Dx); Shortness of breath 05/16/2025 2:45 PM CDT Ancillary Procedure [facility] Cardiology [address] [place] [address] [address] Arterial disease; Shortness of breath; Precordial pain; Palpitations; Palpitation; Incomplete right bundle branch block 05/16/2025 2:00 PM CDT Office Visit [facility] Cardiology [address] [place] [address] [address] Fede Pierre MD Arterial disease (Primary Dx); Shortness of breath; Precordial pain; Palpitations; Palpitation; Incomplete right bundle branch block 05/04/2025 3:35 PM CDT - 05/04/2025 5:49 PM CDT Emergency [facility] Emergency Department [address] [place] [address] Palpitation (Primary Dx); Shortness of breath; Dizziness; Incomplete right bundle branch block Discharge Disposition: Discharge to home or self care 05/04/2025 12:00 PM CDT Office Visit [facility] at [address] [address] Matilde Pickard NP Dizziness (Primary Dx); Chest tightness; Shortness of breath; Intermittent palpitations from Last 3 Months Social History Tobacco Use Types Packs/Day Years Used Date Smoking Tobacco: Never Smokeless Tobacco: Never Tobacco Cessation:Counseling Given: Not Answered Personal Safety Answer Date Recorded Have you ever been in or are you currently in a harmful physical or emotional relationship or is someone making you feel afraid or unsafe? 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 Gender Identity Not on file Sexual Orientation Not on file Obstetrics History Last Filed Vital Signs Vital Sign Reading Time Taken Comments Blood Pressure 120/80 06/15/2025 1:24 PM CDT Pulse 70 06/15/2025 1:24 PM CDT Temperature 36.7 C (98.1 F) 05/04/2025 2:20 PM CDT Respiratory Rate 11 05/04/2025 5:30 PM CDT Oxygen Saturation 100% 06/15/2025 1:24 PM CDT Inhaled Oxygen Concentration - - Weight 68 kg (150 lb) 06/15/2025 1:24 PM CDT Height 167.6 cm (5' 6) 06/15/2025 1:24 PM CDT Body Mass Index 24.21 06/15/2025 1:24 PM CDT Plan of Treatment Health Maintenance Due Date Last Done Comments Cervical Cancer Screening 1993 Depression Screening 1993 Hepatitis C Screening 1993 Varicella Vaccines (1 of 2 - 13+ 2-dose series) 2006 Hepatitis B Screening 2011 Regular Well Visit/Exam 18-64 2011 HPV Vaccines (1 - 3-dose SCDM series) 2020 Influenza Vaccine (#1) 2025 , 08/14/2023, 08/28/2022, Additional history exists DTaP/Tdap/Td Vaccine (3 - Td or Tdap) 11/05/2033 11/05/2023, 07/12/2021 Covid-19 Vaccine Completed 08/19/2024, , 10/30/2021, Additional history exists Pneumococcal vaccine <65 Aged Out No longer eligible based on patient's age to complete this topic Procedures Procedure Name Priority Date/Time Associated Diagnosis Comments THYROID FUNCTION CASCADE Timed 05/04/2025 4:08 PM CDT D-DIMER, QUANTITATIVE STAT 05/04/2025 4:08 PM CDT TROPONIN T HIGH-SENSITIVITY 2-HOUR Timed 05/04/2025 4:08 PM CDT XR CHEST 1 VIEW ED 05/04/2025 3:16 PM CDT EGFR STAT 05/04/2025 2:33 PM CDT DIFFERENTIAL AUTO STAT 05/04/2025 2:3 3 PM CDT TROPONIN T HIGH-SENSITIVITY SERIES (BASELINE, 2HR, 4HR, 6HR) STAT 05/04/2025 2:33 PM CDT CBC WITH AUTO DIFFERENTIAL STAT 05/04/2025 2:33 PM CDT COMPREHENSIVE METABOLIC PANEL STAT 05/04/2025 2:33 PM CDT POCT HCG, URINE Routine 05/04/2025 2:30 PM CDT ECG 12-LEAD STAT 05/04/2025 2:29 PM CDT POCT HCG, URINE Routine 05/04/2025 12:18 PM CDT Dizziness from Last 3 Months Results * Troponin T high-sensitivity 2-hour (05/04/2025 4:08 PM CDT) Trop T hs <6 <=14 ng/L Comment: Interpretive Data For further hscTnT resources including the diagnostic algorithm and an aid in interpretation, copy and paste this link: https://nrl.testcatalog.org/show/hsTrop Current Interpretive Data last revised 2020. Testing performed by: [facility], [address] [place] [address]., [id number] Trop T hs delta 0 ng/L REGINA Comment:Testing performed by : [address] [address] Trop T hs interp Insignificant REGINA Comment:Testing performed by : [address] [address] Blood 05/04/2025 4:08 PM CDT 05/04/2025 4:14 PM CDT Maciel Centeno DO LAB BLOOD ORDERABLES Final Result Performing Organization Address [facility]/ZIP Co de Phone Number [place] [phone] [facility] [place] [address] * Thyroid Function Lampe (05/04/2025 4:08 PM CDT) Pathologist [facility] TSH 0.90 0.30 - 4.20 mcIUnit/mL Comment:Testing performed by : [address] [address] Blood 05/04/2025 4:08 PM CDT 05/04/2025 4:14 PM CDT us Gris ERNST LAB BLOOD ORDERABLES Final Re sult Performing Organization Address City/[facility]/ZIP Co de Phone Number [facility] [address] [place] [address] * D-dimer, quantitative (05/04/2025 4:08 PM CDT) D-Dimer 440 <=499 ng/mL FEU Comment: Interpretive data FDA approved the D-dimer, in conjunction with a low or moderate pretest probability score, to exclude venous thromboembolic events (VTE) (PE and DVT) in outpatients when the D-dimer result is < 500 ng/ml FEU. Evidence supports using an age-adjusted D-dimer cut-off for outpatients older than 50 (age x 10) to improve specificity without sacrificing sensitivity. Example: age 68, VTE cut-off 680 ng/ml FEU. References; Clive MONIQUE et al. Brit Med J. 2013;346:f2492. Emre et al. Annals Int Med. 2015;163:701-11. Current interpretive data was last revised on 2019. Testing performed by: [facility], [address] [place] [address]., [address] Blood 05/04/2025 4:08 PM CDT 05/04/2025 4:14 PM CDT us Gris ERNST LAB BLOOD ORDERABLES Final Re sult [facility] [address] [facility] Department [place] [address] * XR Chest 1 Vw Portable (if patient condition/safety warrant portable) (05/04/2025 3:16 PM CDT) Anatomical Region Laterality Modality Body, Chest N/A Computed Radiogr aphy 05/04/2025 3:57 PM CDT Narrative 05/04/2025 3:57 PM CDT EXAM DESCRIPTION: XR CHEST 1 VIEW REASON FOR STUDY: Shortness of breath Shortness of breath of dizziness for 3-4 days TECHNIQUE: Portable upright AP radiographic view(s) of the chest. COMPARISON: None FINDINGS: LUNGS: No focal opacity, pleural effusion, or pneumothorax. HEART/MEDIASTINUM: Cardiac silhouette normal in size. Mediastinal and hilar contours appear normal. LINES/TUBES: None. BONES: No acute osseous abnormality. IMPRESSION: No acute cardiopulmonary abnormality. THIS IS AN ELECTRONICALLY VERIFIED FINAL REPORT 05/04/2025 3:57 PM - Electronically signed by Robert Salcido M.D. RB: RAMBO Report ID: [id number] Reading Location: [id number] Procedure Note Robert Salcido MD - 05/04/2025 EXAM DESCRIPTION: XR CHEST 1 VIEW REASON FOR STUDY: Shortness of breath Shortness of breath of dizziness for 3-4 days TECHNIQUE: Portable upright AP radiographic view(s) of the chest. COMPARISON: None FINDINGS: LUNGS: No focal opacity, pleural effusion, or pneumothorax. HEART/MEDIASTINUM: Cardiac silhouette normal in size. Mediastinal andhilar contours appear normal. LINES/TUBES: None. BONES: No acute osseous abnormality. IMPRESSION: No acute cardiopulmonary abnormality. THIS IS AN ELECTRONICALLY VERIFIED FINAL REPORT 05/04/2025 3:57 PM - Electronically signed by Robert Salcido M.D. RB: RB Report ID: [id number] Reading Location: [id number] Maciel Centeno DO IMG XR PROCEDURES Final Res ult * Troponin T high-sensitivity series (baseline, 2hr, 4hr, 6hr) (05/04/2025 2:33 PM CDT) Trop T hs <6 <=14 ng/L Comment: Interpretive Data For further hscTnT resources including the diagnostic algorithm and an aid in interpretation, copy and paste this link: https://nrl.testcatalog.org/show/hsTrop Current Interpretive Data last revised 2020. Testing performed by: [facility], [address] [place] [address]., [address] Blood 05/04/2025 2:33 PM CDT 05/04/2025 2:38 PM CDT Maciel Centeno DO LAB BLOOD ORDERABLES Final Result [facility] [address] [facility] Department [place] [address] * eGFR (05/04/2025 2:33 PM CDT) [facility] [address] eGFR >90 >=60 mL/min/1. 73 m2 Comment: Interpretive Data Reference Interval Normal >/= 90 mL/min/1.73m2 Mildly decreased* 60 - 89 mL/min/1.73m2 Mildly to moderately decreased 45 - 59 mL/min/1.73m2 Moderately to severely decreased 30 - 44 mL/min/1.73m2 Severely decreased 15 - 29 mL/min/1.73m2 Kidney Failure < 15 mL/min/1.73m2 *Relative to young adult level Estimated glomerular filtration rate is determined by the 2020 CKD-EPI equation recommended by the National Kidney Foundation (A Unifying Approach to GFR Estimation: Recommendations of the NKF-ASK Task Force on Reassessing the Inclusion of Race in Diagnosing Kidney Disease, JASN 2020). The CKD-EPI equation should not be used for patients with unstable renal function and has not been validated in children and those over 70. Current interpretive data was last reviewed 2021. Testing performed by: [address] [address] Blood 05/04/2025 2:33 PM CDT 05/04/2025 2:38 PM CDT Maciel Centeno DO LAB BLOOD ORDERABLES Final Result REGINA [address] [facility] Department of Laboratories [place], [place] [id number] * Differential, auto (05/04/2025 2:33 PM CDT) [facility] [address] Neutrophil abs 4.25 1.50 - 6.50 K/cumm Comment:Testing performed by : [address] [address] Imm gran abs 0.01 0.00 - 0.10 K/cumm REGINA CHRISTENSEN Comment:Testing performed by : [address] [address] Lymphocyte abs 2.36 0.80 - 3.30 K/cumm REGINA CHRISTENSEN Comment:Testing performed by : [address] [address] Monocyte abs 0.57 0.20 - 0.80 K/cumm [facility] Comment:Testing performed by : [address] [address] Eosinophil abs 0.08 0.00 - 0.50 K/cumm [facility] Comment:Testing performed by : [address], [place]., [address] Basophil abs 0.03 0.00 - 0.10 K/cumm [facility] Comment:Testing performed by : [address] [address] Neutrophil pct 58.3 % [facility] Comment: Interpretive Data Percent cell count reference ranges are not reported, since discordance with absolute values may lead to misinterpretation of CBC data. Current Interpretive Data was last revised on 2018. Testing performed by: [address] [address] Imm gran pct 0.1 % [facility] Comment: Interpretive Data Percent cell count reference ranges are not reported, since discordance with absolute values may lead to misinterpretation of CBC data. Current Interpretive Data was last revised on 2018. Testing performed by: [address] [address] Lymphocyte pct 32.3 % [facility] Comment: Interpretive Data Percent cell count reference ranges are not reported, since discordance with absolute values may lead to misinterpretation of CBC data. Current Interpretive Data was last revised on 2018. Testing performed by: [address] [address] Monocyte pct 7.8 % [facility] Comment: Interpretive Data Percent cell count reference ranges are not reported, since discordance with absolute values may lead to misinterpretation of CBC data. Current Interpretive Data was last revised on 2018. Testing performed by: [address] [address] Eosinophil pct 1.1 % [facility] Comment: Interpretive Data Percent cell count reference ranges are not reported, since discordance with absolute values may lead to misinterpretation of CBC data. Current Interpretive Data was last revised on 2018. Testing performed by: [address] [address] Basophil pct 0.4 % REGINA Comment: Interpretive Data Percent cell count reference ranges are not reported, since discordance with absolute values may lead to misinterpretation of CBC data. Current Interpretive Data was last revised on 2018. Testing performed by: [address] [address] Blood 05/04/2025 2:33 PM CDT 05/04/2025 2:38 PM CDT us Maciel Centeno DO LAB BLOOD ORDERABLES Final Result REGINA [address] [facility] Department [place] [address] * CBC with auto differential (05/04/2025 2:33 PM CDT) WBC 7.30 3.80 - 9.90 K/cumm Comment:Testing performed by : [address] [address] Hgb 14.9 11.9 - 15.5 g/dL REGINA Comment:Testing performed by : [address] [address] Hct 43.6 35.6 - 45.5 % REGINA Comment:Testing performed by : [address] [address] Plt 257 150 - 400 K/cumm REGINA Comment:Testing performed by : [address] [address] MPV 9.5 9.1 - 12.3 fL REGINA Comment:Testing performed by : [address] [address] RBC 4.97 3.90 - 5.20 M/cumm REGINA Comment:Testing performed by : [address] [address] MCV 87.7 81.3 - 96.4 fL REGINA Comment:Testing performed by : [address] [address] MCH 30.0 27.1 - 33.3 pg REGINA CHRISTENSEN Comment:Testing performed by : [address] [address] MCHC 34.2 32.3 - 35.7 g/dL REGINA CHRISTENSEN Comment:Testing performed by : [address] [address] RDW CV 12.4 11.1 - 14.9 % REGINA CHRISTENSEN Comment:Testing performed by : [address] [address] RDW SD 39.5 35.7 - 48.1 fL REGINA CHRISTENSEN Comment:Testing performed by : [address] [address] NRBC abs 0.00 0.00 - 0.01 K/cumm REGINA CHRISTENSEN Comment:Testing performed by : [address] [address] Blood 05/04/2025 2:33 PM CDT 05/04/2025 2:38 PM CDT us Maciel Centeno DO LAB BLOOD ORDERABLES Final Result REGINA [facility] Department [place] [address] * Comprehensive metabolic panel (05/04/2025 2:33 PM CDT) Sodium 139 135 - 145 mmol/L Comment:Testing performed by : [address] [address] Potassium, pl 3.8 3.3 - 4.9 mmol/L REGINA CHRISTENSEN Comment: Hemolyzed; Potassium value may be falsely elevated by as much as 1.0 mmol/L. Suggest redraw and reanalysis. Testing performed by: [address] [address] Chloride 102 97 - 110 mmol/L REGINA CHRISTENSEN Comment:Testing performed by : [address] [address] CO2 24 22 - 32 mmol/L REGINA CHRISTENSEN Comment:Testing performed by : [address] [address] Anion gap 13 2 - 15 mmol/L REGINA Comment:Testing performed by : [address] [address] BUN 12 6 - 25 mg/dL REGINA Comment:Testing performed by : [address], [place]., [address] Creatinine 0.60 0.60 - 1.10 mg/dL REGINA Comment:Testing performed by : [address] [address] Glucose 82 70 - 199 mg/dL REGINA Comment: Interpretive Data Fasting glucose >/= 126 mg/dl is diagnostic for diabetes. Fasting is defined as no caloric intake for at least 8 hours. Fasting glucose between 100 mg/dl to 125 mg/dl is diagnostic of prediabetes. In a patient with classic symptoms of hyperglycemia or hyperglycemic crisis, a random glucose >/= 200 mg/dl is diagnostic for diabetes. In the absence of unequivocal hyperglycemia, results should be confirmed by repeat testing. The classification and Diagnosis of Diabetes Diabetes Care 202; 46: S19-S40. Current interpretive data was last revised 2022. Testing performed by: [address] [address] Calcium 9.7 8.5 - 10.3 mg/dL REGINA Comment:Testing performed by : [address] [address] Bilirubin, total 0.9 0.1 - 1.2 mg/dL REGINA Comment:Testing performed by : [address] [address] Protein, pl 7.9 6.5 - 8.5 g/dL REGINA Comment:Testing performed by : [address] [address] Albumin 4.8 3.5 - 5.0 g/dL REGINA Comment:Testing performed by : [address] [address] Alk phos 74 40 - 130 Units/L REGINA Comment:Testing performed by : [address] [address] ALT 18 7 - 45 Units/L REGINA Comment:Testing performed by : [facility], [address] [place] [address]., [address] AST 20 10 - 45 Units/L REGINA Comment:Testing performed by : [facility], [address] [place] [address]., [address] Blood 05/04/2025 2:33 PM CDT 05/04/2025 2:38 PM CDT Maciel Centeno DO LAB BLOOD ORDERABLES Final Result REGINA [address] [facility] Department of Laboratories [place], [place] [id number] * POCT hCG, urine (05/04/2025 2:30 PM CDT) Pathologist [facility] HCG, ur, POC Negative Negative Lot Number [id number] QC Backgroud Clear Acceptable QC Control Line Acceptable Urine 05/04/2025 2:30 PM CDT Maciel Centeno DO POINT OF CARE TEST ORDERABL ES Final Result * ECG 12 lead (05/04/2025 2:29 PM CDT) Pathologist [facility] Ventricular Rate EKG/Min 60 BPM [facility] Atrial Rate 60 BPM [facility] DE-Interval (MSEC) 142 ms [facility] QRS-Interval (MSEC) 100 ms [facility] QT-Interval (MSEC) 408 ms [facility] QTc 408 ms [facility] P [place] 66 degrees [facility] R [place] 82 degrees [facility] T [place] 59 degrees [facility] Diagnosis Normal sinus rhythm Possible Left atrial enlargement Incomplete right bundle branch block Borderline ECG No previous ECGs available Confirmed by RASHAWN AMATO M.D. ([id number]) on 05/04/2025 11:10:43 PM [facility] 05/04/2025 2:29 PM CDT 05/04/2025 11:10 PM CDT Maciel Centeno DO ECG ORDERABLES Final Resul t [facility] * POCT hCG, urine (05/04/2025 12:18 PM CDT) HCG, ur, POC Negative Negative Lot Number 0 QC Backgroud Clear Acceptable QC Control Line Acceptable Urine 05/04/2025 12:1 8 PM CDT us Matilde Pickard PARKING METER ATTENDANT POINT OF CARE TEST ORDERAB LES Final Result from Last [address] [facility] [facility] [employer] Care Teams Bun Icer Relationship Specialty Start Date End Date Kevin Clark MD [address] [facility] [address] [facility] [address] [place] [address] PCP - General Family Medicine 05/04/25
== END 2025-07-13 17:07 | disposition home or self-care (01) ==
PROVIDERS: PCP Family Medicine; Visit Provider Advanced Practice Midwife
DX: R10.9 Unspecified abdominal pain (principal)
CPT/HCPCS: 76770

== ENCOUNTER 2025-07-15 11:52 | Emergency (ER) | payer OTHER, SELFPAY ==
--- OUTSIDE RECORDS SUMMARY | 2025-07-15 11:54 | XMS_ITS | Clinical Summary ---
Author Organization [facility] Address [address] [place] [address] Care Team Providers Care Barber Name Role Phone Kevin Clark MD Primary Care Provider Mark Alfonso MD Unavailable Source Comments [facility],non-owned Affiliates and Associated Physician Practices is amultiple site organization consisting of ambulatory clinics and hospital sitesin [place], [place], [place] and [place]. This disclosure is being madepursuant to the Care Everywhere program and may not contain all information available regarding this patient. 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 Gender Identity Not on file Sexual Orientation Not on file Last Filed Vital Signs Vital Sign Reading Time Taken Comments Blood Pressure 124/70 11/16/2018 12:40 PM CREAM GATHERER Pulse 72 11/16/2018 12:40 PM CREAM GATHERER Temperature 36.7 C (98.1 F) 11/16/2018 12:40 PM CREAM GATHERER Respiratory Rate 16 11/16/2018 12:40 PM CREAM GATHERER Oxygen Saturation 97% 11/16/2018 12:40 PM CREAM GATHERER Inhaled Oxygen Concentration - - Weight 63.5 kg (140 lb) 11/16/2018 12:40 PM CREAM GATHERER Height 165.1 cm (5' 5) 11/16/2018 12:40 PM CREAM GATHERER Body Mass Index 23.3 11/16/2018 12:40 PM CREAM GATHERER Plan of Treatment Health Maintenance Due Date [...] age to complete [place] [id number] [facility] MANAGED MEDICARE ADV Care Teams Barber Relationship Specialty Start Date End Date Kevin Clark MD [address] [place] [address] PCP - General 09/10/21 Mark Alfonso MD [facility] [place] [address] Family Medicine 09/10/21
--- OUTSIDE RECORDS SUMMARY | 2025-07-15 11:54 | XMS_ITS | Clinical Summary ---
Author Organization [facility] Address [address] [place] [address] Phone Care Team Providers Care Hr Generalist Name Role Phone Kevin Clark MD Primary Care Provider Allergies Active Allergy Reactions Criticality Noted Date Comments Coconut Cough Low 05/04/2025 Coconut Oil Cough Low 10/13/2017 Nitrofuran Analogues Hives Medium 05/04/2025 Nitrofurantoin Hives,Urticaria Medium 10/29/2018 Medications sertraline (ZOLOFT) 100 mg tablet Take 1 tablet (100 mg total) by mouth daily Active vit 17-yuvl-vawmc-dh a 27mg iron- 800 mcg-250 mg capsule [...] blood cell count, unspecified;Recorded Elsewhere: No Location: [facility] Source: EHR Chronic: N Practice ID: [id number] Billable Time: 01:45:00 PM Encounters Date Type Department Care Team Description 06/15/2025 1:30 PM CDT Office Visit [facility] Cardiology [address] [address] Princess Paul NP Palpitations (Primary Dx); Shortness of breath 05/16/2025 2:45 PM CDT Ancillary Procedure [facility] [address] [place] [address] [address] Arterial disease; Shortness of breath; Precordial pain; Palpitations; Palpitation; Incomplete right bundle branch block 05/16/2025 2:00 PM CDT Office Visit [facility] Cardiology [address] [place] [address] [address] Fede Pierre MD Arterial disease (Primary Dx); Shortness of breath; Precordial pain; Palpitations; Palpitation; Incomplete right bundle branch block 05/04/2025 3:35 PM CDT - 05/04/2025 5:49 PM CDT [facility] [address] [place] [address] Palpitation (Primary Dx); Shortness of breath; Dizziness; Incomplete right bundle branch block Discharge Disposition: Discharge to home or self care 05/04/2025 12:00 PM CDT Office Visit [facility] at [address] [address] Matilde Pickard NP Dizziness (Primary [...] on file 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 Testing performed by: [facility], [address] [place] [address]., [address] Trop T hs delta 0 ng/L REGINA Comment:Testing performed by : [address] [address] Trop T hs interp Insignificant REGINA Comment:Testing performed by : [address] [address] Blood 05/04/2025 4:08 PM CDT 05/04/2025 4:14 PM CDT Maciel Centeno DO LAB BLOOD ORDERABLES Final Result Performing Organization Address [facility]/ZIP Co de Phone Number [place] [id number] [facility] [place] [address] * Thyroid Function Parker (05/04/2025 4:08 PM CDT) Pathologist [facility] TSH 0.90 0.30 - 4.20 mcIUnit/mL Comment:Testing performed by : [address] [address] Blood 05/04/2025 4:08 PM CDT 05/04/2025 4:14 PM CDT us Gris ERNST LAB BLOOD ORDERABLES Final Re sult Performing Organization Address City/[facility]/ZIP Co de Phone Number [facility] [address] [facility] [place] [address] * D-dimer, quantitative (05/04/2025 4:08 PM CDT) [...] last revised on 2019. Testing performed by: [facility], [address] [place] [address]., [address] Blood 05/04/2025 4:08 PM CDT 05/04/2025 4:14 PM CDT us Gris ERNST LAB BLOOD ORDERABLES Final Re sult [facility] [address] [facility] Department [place] [address] * XR Chest 1 Vw [...] Robert Salcido M.D. RB: RAMBO Report ID: [id number] Reading Location: [id number] Procedure Note Robert Salcido MD - 05/04/2025 [...] Robert Salcido M.D. RB: RB Report ID: [id number] Reading Location: [id number] Maciel Centeno DO IMG XR PROCEDURES Final Res ult * Troponin T high-sensitivity series (baseline, 2hr, 4hr, 6hr) (05/04/2025 2:33 PM CDT) Trop T hs <6 <=14 ng/L Comment: Interpretive Data For further hscTnT resources including the diagnostic algorithm and an aid in interpretation, copy and paste this link: https://nrl.testcatalog.org/show/hsTrop Current Interpretive Data last revised 2020. Testing performed by: [facility], [address] [place] [address]., [address] Blood 05/04/2025 2:33 PM CDT 05/04/2025 2:38 PM CDT Maciel Centeno DO LAB BLOOD ORDERABLES Final Result [facility] [address] [facility] Department [place] [address] * eGFR (05/04/2025 2:33 PM CDT) [facility] eGFR >90 >=60 mL/min/1. 73 m2 Comment: [...] was last reviewed 2021. Testing performed by: [address] [address] Blood 05/04/2025 2:33 PM CDT 05/04/2025 2:38 PM CDT Maciel Centeno DO LAB BLOOD ORDERABLES Final Result REGINA [address] [facility] Department of Laboratories [place], [place] [id number] * Differential, auto (05/04/2025 2:33 PM CDT) [facility] Neutrophil abs 4.25 1.50 - 6.50 K/cumm Comment:Testing performed by : [address] [address] Imm gran abs 0.01 0.00 - 0.10 K/cumm REGINA CHRISTENSEN Comment:Testing performed by : [address] [address] Lymphocyte abs 2.36 0.80 - 3.30 K/cumm REGINA CHRISTENSEN Comment:Testing performed by : [address] [address] Monocyte abs 0.57 0.20 - 0.80 K/cumm [facility] Comment:Testing performed by : [address] [address] Eosinophil abs 0.08 0.00 - 0.50 K/cumm [facility] Comment:Testing performed by : [address], [place]., [address] Basophil abs 0.03 0.00 - 0.10 K/cumm [facility] Comment:Testing performed by : [address] [address] Neutrophil pct 58.3 % [facility] Comment: Interpretive Data Percent cell count reference ranges are not reported, since discordance with absolute values may lead to misinterpretation of CBC data. Current Interpretive Data was last revised on 2018. Testing performed by: [address] [address] Imm gran pct 0.1 % [facility] Comment: Interpretive Data Percent cell count reference ranges are not reported, since discordance with absolute values may lead to misinterpretation of CBC data. Current Interpretive Data was last revised on 2018. Testing performed by: [address] [address] Lymphocyte pct 32.3 % [facility] Comment: Interpretive Data Percent cell count reference ranges are not reported, since discordance with absolute values may lead to misinterpretation of CBC data. Current Interpretive Data was last revised on 2018. Testing performed by: [address] [address] Monocyte pct 7.8 % [facility] Comment: Interpretive Data Percent cell count reference ranges are not reported, since discordance with absolute values may lead to misinterpretation of CBC data. Current Interpretive Data was last revised on 2018. Testing performed by: [address] [address] Eosinophil pct 1.1 % [facility] Comment: Interpretive Data Percent cell count reference ranges are not reported, since discordance with absolute values may lead to misinterpretation of CBC data. Current Interpretive Data was last revised on 2018. Testing performed by: [address] [address] Basophil pct 0.4 % [facility] Comment: Interpretive Data Percent cell count reference ranges are not reported, since discordance with absolute values may lead to misinterpretation of CBC data. Current Interpretive Data was last revised on 2018. Testing performed by: [address] [address] Blood 05/04/2025 2:33 PM CDT 05/04/2025 2:38 PM CDT us Maciel Centeno DO LAB BLOOD ORDERABLES Final Result [facility] [address] [facility] Department [place] [address] * CBC with auto differential (05/04/2025 2:33 PM CDT) WBC 7.30 3.80 - 9.90 K/cumm Comment:Testing performed by : [address] [address] Hgb 14.9 11.9 - 15.5 g/dL REGINA Comment:Testing performed by : [address] [address] Hct 43.6 35.6 - 45.5 % [facility] Comment:Testing performed by : [address] [address] Plt 257 150 - 400 K/cumm [facility] Comment:Testing performed by : [address] [address] MPV 9.5 9.1 - 12.3 fL [facility]A Comment:Testing performed by : [address] [address] RBC 4.97 3.90 - 5.20 M/cumm [facility]A Comment:Testing performed by : [address] [address] MCV 87.7 81.3 - 96.4 fL [facility]A Comment:Testing performed by : [address] [address] MCH 30.0 27.1 - 33.3 pg REGINA CHRISTENSEN Comment:Testing performed by : [address] [address] MCHC 34.2 32.3 - 35.7 g/dL REGINA CHRISTENSEN Comment:Testing performed by : [address] [address] RDW CV 12.4 11.1 - 14.9 % REGINA CHRISTENSEN Comment:Testing performed by : [address] [address] RDW SD 39.5 35.7 - 48.1 fL REGINA CHRISTENSEN Comment:Testing performed by : [address] [address] NRBC abs 0.00 0.00 - 0.01 K/cumm REGINA CHRISTENSEN Comment:Testing performed by : [address] [address] Blood 05/04/2025 2:33 PM CDT 05/04/2025 2:38 PM CDT us Maciel Centeno DO LAB BLOOD ORDERABLES Final Result [facility] Department [place] [address] * Comprehensive metabolic panel (05/04/2025 2:33 PM CDT) Sodium 139 135 - 145 mmol/L Comment:Testing performed by : [address] [address] Potassium, pl 3.8 3.3 - 4.9 mmol/L REGINA CHRISTENSEN Comment: Hemolyzed; Potassium value may be falsely elevated by as much as 1.0 mmol/L. Suggest redraw and reanalysis. Testing performed by: [address] [address] Chloride 102 97 - 110 mmol/L REGINA CHRISTENSEN Comment:Testing performed by : [address] [address] CO2 24 22 - 32 mmol/L REGINA CHRISTENSEN Comment:Testing performed by : [address] [address] Anion gap 13 2 - 15 mmol/L REGINA Comment:Testing performed by : [address] [address] BUN 12 6 - 25 mg/dL REGINA Comment:Testing performed by : [address], [place]., [address] Creatinine 0.60 0.60 - 1.10 mg/dL REGINA Comment:Testing performed by : [address] [address] Glucose 82 70 - 199 mg/dL REGINA [...] was last revised 2022. Testing performed by: [address] [address] Calcium 9.7 8.5 - 10.3 mg/dL REGINA Comment:Testing performed by : [address] [address] Bilirubin, total 0.9 0.1 - 1.2 mg/dL REGINA Comment:Testing performed by : [address] [address] Protein, pl 7.9 6.5 - 8.5 g/dL REGINA Comment:Testing performed by : [address] [address] Albumin 4.8 3.5 - 5.0 g/dL REGINA Comment:Testing performed by : [address] [address] Alk phos 74 40 - 130 Units/L REGINA Comment:Testing performed by : [address] [address] ALT 18 7 - 45 Units/L RE[facility]A Comment:Testing performed by : [facility], [address] [place] [address]., [address] AST 20 10 - 45 Units/L REGINA Comment:Testing performed by : [facility], [address] [place] [address]., [address] Blood 05/04/2025 2:33 PM CDT 05/04/2025 2:38 PM CDT Maciel Centeno DO LAB BLOOD ORDERABLES Final Result [facility] [address] [facility] Department of Laboratories [place], [place] [id number] * POCT hCG, urine (05/04/2025 2:30 PM CDT) Pathologist [facility] HCG, ur, POC Negative Negative Lot Number [id number] QC Backgroud Clear Acceptable QC Control Line Acceptable Urine 05/04/2025 2:30 PM CDT Maciel Centeno DO POINT OF CARE TEST ORDERABL ES Final Result * ECG 12 lead (05/04/2025 2:29 PM CDT) Pathologist [facility] Ventricular Rate EKG/Min 60 BPM [facility] Atrial Rate 60 BPM [facility] UT-Interval (MSEC) 142 ms [facility] QRS-Interval (MSEC) 100 ms [facility] QT-Interval (MSEC) 408 ms [facility] QTc 408 ms [facility] P [place] 66 degrees [facility] R [place] 82 degrees [facility] T [place] 59 degrees [facility] Diagnosis Normal sinus rhythm Possible Left atrial enlargement Incomplete right bundle branch block Borderline ECG No previous ECGs available Confirmed by RASHAWN AMATO M.D. ([id number]) on 05/04/2025 11:10:43 PM [facility] 05/04/2025 2:29 PM CDT 05/04/2025 11:10 PM CDT Maciel Centeno DO ECG ORDERABLES Final Resul t [facility] * POCT hCG, urine (05/04/2025 12:18 PM CDT) HCG, ur, POC Negative Negative Lot Number [id number] QC Backgroud Clear Acceptable QC Control Line Acceptable Urine 05/04/2025 12:1 8 PM CDT us Matilde Pickard STOCK CHECKERER POINT OF CARE TEST ORDERAB LES Final Result from Last 3 Months Insurance [facility] [employer] [facility] H[employer]/PPO Address: [address] [address] [place] [address] [facility] [employer] [facility] [employer]PPO Address: [address] [address] [place] [address] Care Teams Hr Generalist Relationship Specialty Start Date End Date Kevin Clark MD [address] [facility] [address] [place] [address] PCP - General Family Medicine 05/04/25
[2025-07-15 11:57] VITALS: BP 135/80; PULSE 92; RESP 19; TEMP 36.4; O2SAT 100
--- OUTSIDE RECORDS SUMMARY | 2025-07-15 12:50 | XMS_ITS | Clinical Summary ---
Author Organization [facility] Address [address] [facility] [place] [address] Care Team Providers Care Janitor Head Name Role Phone Kevin Clark MD Primary Care Provider [phone] Mark Alfonso MD Unavailable Source Comments [facility],non-owned Affiliates and Associated Physician Practices is amultiple site organization consisting of ambulatory clinics and hospital sitesin [place], [place], [place] and [place]. This disclosure is being madepursuant to the Care Everywhere program and may not contain all information available regarding this patient. 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 Gender Identity Not on file Sexual Orientation Not on file Last Filed Vital Signs Vital Sign Reading Time Taken Comments Blood Pressure 124/70 11/16/2018 12:40 PM WRINKLE CHASER Pulse 72 11/16/2018 12:40 PM WRINKLE CHASER Temperature 36.7 C (98.1 F) 11/16/2018 12:40 PM WRINKLE CHASER Respiratory Rate 16 11/16/2018 12:40 PM WRINKLE CHASER Oxygen Saturation 97% 11/16/2018 12:40 PM WRINKLE CHASER Inhaled Oxygen Concentration - - Weight 63.5 kg (140 lb) 11/16/2018 12:40 PM WRINKLE CHASER Height 165.1 cm (5' 5) 11/16/2018 12:40 PM WRINKLE CHASER Body Mass Index 23.3 11/16/2018 12:40 PM WRINKLE CHASER Plan of Treatment Health Maintenance Due Date [...] age to complete [place] [id number] [facility] [place] [address] Care Teams Janitor Head Relationship Specialty Start Date End Date Kevin Clark MD [address] [place] [address] PCP - General 09/10/21 Mark Alfonso MD [facility] [place] [address] Family Medicine 09/10/21
--- OUTSIDE RECORDS SUMMARY | 2025-07-15 12:50 | XMS_ITS | Clinical Summary ---
Author Organization [facility] Address [address] [place] [address] Phone Care Team Providers Care Financial Director Name Role Phone Kevin Clark MD Primary Care Provider Allergies Active Allergy Reactions Criticality Noted Date Comments Coconut Cough Low 05/04/2025 Coconut Oil Cough Low 10/13/2017 Nitrofuran Analogues Hives Medium 05/04/2025 Nitrofurantoin Hives,Urticaria Medium 10/29/2018 Medications sertraline (ZOLOFT) 100 mg tablet Take 1 tablet (100 mg total) by mouth daily Active vit 77-[id number]-dh a 27mg iron- 800 mcg-250 mg capsule [...] blood cell count, unspecified;Recorded Elsewhere: No Location: [facility] Source: EHR Chronic: N Practice ID: [id number] Billable Time: 01:45:00 PM Encounters Date Type Department Care Team Description 06/15/2025 1:30 PM CDT Office Visit [facility] Cardiology [address] [address] Princess Paul NP Palpitations (Primary Dx); Shortness of breath 05/16/2025 2:45 PM CDT Ancillary Procedure [facility] Cardiology [address] [place] [address] [address] Arterial disease; Shortness of breath; Precordial pain; Palpitations; Palpitation; Incomplete right bundle branch block 05/16/2025 2:00 PM CDT Office Visit [facility] Cardiology [address] [place] [address] [address] Fede Pierre MD Arterial disease (Primary Dx); Shortness of breath; Precordial pain; Palpitations; Palpitation; Incomplete right bundle branch block 05/04/2025 3:35 PM CDT - 05/04/2025 5:49 PM CDT Emergency [facility] Emergency Department [address] [place] [id number] Palpitation (Primary Dx); Shortness of breath; Dizziness; Incomplete right bundle branch block Discharge Disposition: Discharge to home or self care 05/04/2025 12:00 PM CDT Office Visit [facility] at [address] [address] Matilde Pickard NP Dizziness (Primary [...] on file Legal Sex Female 12:21 AM [employer] Gender Identity Not on file Sexual Orientation [...] Data last revised 2020. Testing performed by: [facility], [address] [place] [address]., [address] Trop T hs delta 0 ng/L REGINA Comment:Testing performed by : [address] [address] Trop T hs interp Insignificant REGINA Comment:Testing performed by : [address] [address] Blood 05/04/2025 4:08 PM CDT 05/04/2025 4:14 PM CDT Maciel Centeno DO LAB BLOOD ORDERABLES Final Result Performing Organization Address [facility]/ZIP Co de Phone Number [place] [phone] [facility] [place] [address] * Thyroid Function [place] (05/04/2025 4:08 PM CDT) Pathologist [facility] TSH 0.90 0.30 - 4.20 mcIUnit/mL Comment:Testing performed by : [address] [address] Blood 05/04/2025 4:08 PM CDT 05/04/2025 4:14 PM CDT us Gris ERNST LAB BLOOD ORDERABLES Final Re sult Performing Organization Address City/[facility]/ZIP Co de Phone Number [facility] [address] [facility] [place] [address] * D-dimer, quantitative (05/04/2025 4:08 PM CDT) [...] last revised on 2019. Testing performed by: [facility], [address] [place] [address]., [address] Blood 05/04/2025 4:08 PM CDT 05/04/2025 4:14 PM CDT us Gris ERNST LAB BLOOD ORDERABLES Final Re sult [facility] [address] [facility] Department [place] [address] * XR Chest 1 Vw [...] Robert Salcido M.D. RB: RAMBO Report ID: [id number] Reading Location: [id number] Procedure Note Robert Salcido MD - 05/04/2025 [...] Robert Salcido M.D. RB: RB Report ID: [id number] Reading Location: [id number] Maciel Centeno DO IMG XR PROCEDURES Final Res ult * Troponin T high-sensitivity series (baseline, 2hr, 4hr, 6hr) (05/04/2025 2:33 PM CDT) Trop T hs <6 <=14 ng/L Comment: Interpretive Data For further hscTnT resources including the diagnostic algorithm and an aid in interpretation, copy and paste this link: https://nrl.testcatalog.org/show/hsTrop Current Interpretive Data last revised 2020. Testing performed by: [facility], [address] [place] [address]., [address] Blood 05/04/2025 2:33 PM CDT 05/04/2025 2:38 PM CDT Maciel Centeno DO LAB BLOOD ORDERABLES Final Result [facility] [address] [facility] Department [place] [address] * eGFR (05/04/2025 2:33 PM CDT) [facility] eGFR >90 >=60 mL/min/1. 73 m2 [...] was last reviewed 2021. Testing performed by: [address] [address] Blood 05/04/2025 2:33 PM CDT 05/04/2025 2:38 PM CDT Maciel Centeno DO LAB BLOOD ORDERABLES Final Result REGINA [address] [facility] of Laboratories [place], [place] [id number] * Differential, auto (05/04/2025 2:33 PM CDT) [facility] Neutrophil abs 4.25 1.50 - 6.50 K/cumm Comment:Testing performed by : [address] [address] Imm gran abs 0.01 0.00 - 0.10 K/cumm REGINA CHRISTENSEN Comment:Testing performed by : [address] [address] Lymphocyte abs 2.36 0.80 - 3.30 K/cumm REGINA CHRISTENSEN Comment:Testing performed by : [address] [address] Monocyte abs 0.57 0.20 - 0.80 K/cumm [facility] Comment:Testing performed by : [address] [address] Eosinophil abs 0.08 0.00 - 0.50 K/cumm [facility] Comment:Testing performed by : [address], [place]., [address] Basophil abs 0.03 0.00 - 0.10 K/cumm [facility] Comment:Testing performed by : [address] [address] Neutrophil pct 58.3 % [facility] Comment: Interpretive Data Percent cell count reference ranges are not reported, since discordance with absolute values may lead to misinterpretation of CBC data. Current Interpretive Data was last revised on 2018. Testing performed by: [address] [address] Imm gran pct 0.1 % [facility] Comment: Interpretive Data Percent cell count reference ranges are not reported, since discordance with absolute values may lead to misinterpretation of CBC data. Current Interpretive Data was last revised on 2018. Testing performed by: [address] [address] Lymphocyte pct 32.3 % [facility] Comment: Interpretive Data Percent cell count reference ranges are not reported, since discordance with absolute values may lead to misinterpretation of CBC data. Current Interpretive Data was last revised on 2018. Testing performed by: [address] [address] Monocyte pct 7.8 % [facility] Comment: Interpretive Data Percent cell count reference ranges are not reported, since discordance with absolute values may lead to misinterpretation of CBC data. Current Interpretive Data was last revised on 2018. Testing performed by: [address] [address] Eosinophil pct 1.1 % [facility] Comment: Interpretive Data Percent cell count reference ranges are not reported, since discordance with absolute values may lead to misinterpretation of CBC data. Current Interpretive Data was last revised on 2018. Testing performed by: [address] [address] Basophil pct 0.4 % REGINA Comment: Interpretive Data Percent cell count reference ranges are not reported, since discordance with absolute values may lead to misinterpretation of CBC data. Current Interpretive Data was last revised on 2018. Testing performed by: [address] [address] Blood 05/04/2025 2:33 PM CDT 05/04/2025 2:38 PM CDT us Maciel Centeno DO LAB BLOOD ORDERABLES Final Result REGINA [address] [facility] Department [place] [address] * CBC with auto differential (05/04/2025 2:33 PM CDT) WBC 7.30 3.80 - 9.90 K/cumm Comment:Testing performed by : [address] [address] Hgb 14.9 11.9 - 15.5 g/dL REGINA Comment:Testing performed by : [address] [address] Hct 43.6 35.6 - 45.5 % REGINA Comment:Testing performed by : [address] [address] Plt 257 150 - 400 K/cumm REGINA Comment:Testing performed by : [address] [address] MPV 9.5 9.1 - 12.3 fL REGINA Comment:Testing performed by : [address] [address] RBC 4.97 3.90 - 5.20 M/cumm REGINA Comment:Testing performed by : [address] [address] MCV 87.7 81.3 - 96.4 fL REGINA Comment:Testing performed by : [address] [address] MCH 30.0 27.1 - 33.3 pg REGINA CHRISTENSEN Comment:Testing performed by : [address] [address] MCHC 34.2 32.3 - 35.7 g/dL REGINA CHRISTENSEN Comment:Testing performed by : [address] [address] RDW CV 12.4 11.1 - 14.9 % REGINA CHRISTENSEN Comment:Testing performed by : [address] [address] RDW SD 39.5 35.7 - 48.1 fL REGINA CHRISTENSEN Comment:Testing performed by : [address] [address] NRBC abs 0.00 0.00 - 0.01 K/cumm REGINA CHRISTENSEN Comment:Testing performed by : [address] [address] Blood 05/04/2025 2:33 PM CDT 05/04/2025 2:38 PM CDT us Maciel Centeno DO LAB BLOOD ORDERABLES Final Result REGINA [facility] Department [place] [address] * Comprehensive metabolic panel (05/04/2025 2:33 PM CDT) Sodium 139 135 - 145 mmol/L Comment:Testing performed by : [address] [address] Potassium, pl 3.8 3.3 - 4.9 mmol/L REGINA CHRISTENSEN Comment: Hemolyzed; Potassium value may be falsely elevated by as much as 1.0 mmol/L. Suggest redraw and reanalysis. Testing performed by: [address] [address] Chloride 102 97 - 110 mmol/L REGINA CHRISTENSEN Comment:Testing performed by : [address] [address] CO2 24 22 - 32 mmol/L REGINA CHRISTENSEN Comment:Testing performed by : [address] [address] Anion gap 13 2 - 15 mmol/L REGINA Comment:Testing performed by : [address] [address] BUN 12 6 - 25 mg/dL REGINA Comment:Testing performed by : [address], [place]., [address] Creatinine 0.60 0.60 - 1.10 mg/dL REGINA Comment:Testing performed by : [address] [address] Glucose 82 70 - 199 mg/dL REGINA [...] was last revised 2022. Testing performed by: [address] [address] Calcium 9.7 8.5 - 10.3 mg/dL REGINA Comment:Testing performed by : [address] [address] Bilirubin, total 0.9 0.1 - 1.2 mg/dL REGINA Comment:Testing performed by : [address] [address] Protein, pl 7.9 6.5 - 8.5 g/dL REGINA Comment:Testing performed by : [address] [address] Albumin 4.8 3.5 - 5.0 g/dL REGINA Comment:Testing performed by : [address] [address] Alk phos 74 40 - 130 Units/L REGINA Comment:Testing performed by : [address] [address] ALT 18 7 - 45 Units/L REGINA Comment:Testing performed by : [facility], [address] [place] [address]., [address] AST 20 10 - 45 Units/L REGINA Comment:Testing performed by : [facility], [address] [place] [address]., [address] Blood 05/04/2025 2:33 PM CDT 05/04/2025 2:38 PM CDT Maciel Centeno DO LAB BLOOD ORDERABLES Final Result REGINA [address] [facility] [place], [place] [id number] * POCT hCG, urine (05/04/2025 2:30 PM CDT) Pathologist [facility] HCG, ur, POC Negative Negative Lot Number [id number] QC Backgroud Clear Acceptable QC Control Line Acceptable Urine 05/04/2025 2:30 PM CDT Maciel Centeno DO POINT OF CARE TEST ORDERABL ES Final Result * ECG 12 lead (05/04/2025 2:29 PM CDT) Pathologist [facility] Ventricular Rate EKG/Min 60 BPM [facility] Atrial Rate 60 BPM [facility] CO-Interval (MSEC) 142 ms [facility] QRS-Interval (MSEC) 100 ms [facility] QT-Interval (MSEC) 408 ms [facility] QTc 408 ms [facility] P [place] 66 degrees [facility] R [place] 82 degrees [facility] T [place] 59 degrees [facility] Diagnosis Normal sinus rhythm Possible Left atrial enlargement Incomplete right bundle branch block Borderline ECG No previous ECGs available Confirmed by RASHAWN AMATO M.D. ([id number]) on 05/04/2025 11:10:43 PM [facility] 05/04/2025 2:29 PM CDT 05/04/2025 11:10 PM CDT Maciel Centeno DO ECG ORDERABLES Final Resul t [facility] * POCT hCG, urine (05/04/2025 12:18 PM CDT) HCG, ur, POC Negative Negative Lot Number [id number] QC Backgroud Clear Acceptable QC Control Line Acceptable Urine 05/04/2025 12:1 8 PM CDT us Matilde Pickard [employer] POINT OF CARE TEST ORDERAB LES Final Result from Last 3 Months Insurance [facility] CHO[employer] PL[employer] [facility] [employer] Care Teams Financial Director Relationship Specialty Start Date End Date Kevin Clark MD [address] [facility] [address] [facility] [address] [place] [address] PCP - General Family Medicine 05/04/25
[2025-07-15] MEDS: SODIUM CHLORIDE 0.9% IV 2,000 ML 999 ML IV CONT (12:52)
[2025-07-15] MEDS: ONDANSETRON INJ 4 MG/2 ML VIAL IV PUSH (12:52)
[2025-07-15 12:53] LABS: Hematocrit 38.6 % (37.0-47.0); Hemoglobin 12.9 g/dL (12.0-15.0); Immature Granulocyte Percent A 0.4 % (0-0.5); Lymphocytes Absolute Auto 1.24 K/mm3 (0.9-3.2); Mean Corpuscular HGB Conc 33.4 g/dl (32-36); Mean Corpuscular Hemoglobin 29.9 pg (26-34); Mean Corpuscular Volume 89.4 fl (80-100); Nucleated Red Blood Cells Absolute Auto 0.000 K/mm3 (0.0-0.012); Nucleated Red Blood Cells Perc 0.0 % (0.0-0.2); Platelet Count Result 250 k/mm3 (150-375); Red Blood Count 4.32 M/mm3 (4.2-5.4); White Blood Count 9.3 K/mm3 (4.5-10.0)
[2025-07-15 13:02] LABS: Add Urine Microscopic? YES; Appearance Urine Clear (Clear); Glucose Urine UA Negative (Negative); Leukocyte Esterase Ur 2+ LEU/UL (Negative); Nitrate Urine Negative (Negative); Non Pathogenic Casts 0-2; Specific Grav Ur 1.021 (1.001-1.035)
[2025-07-15 13:03] LABS: Alanine Aminotransferase 13 U/L (6-35); Albumin Level 4.3 g/dL (3.5-5.1); Alkaline Phosphatase 52 U/L (38-126); Anion Gap 16 mmol/L (4-12); Aspartate Amino Transferase 25 U/L (14-36); Bilirubin,Total 1.5 mg/dL (0.2-1.3); Blood Urea Nitrogen 10 mg/dL (7-17); Calcium 9.2 mg/dL (8.4-10.2); Carbon Dioxide 14 mmol/L (22-30); Chloride 103 mmol/L (98-107); Estimated CRCL calculation 120 ml/min; Estimated Glomerular Filt Rate > 60; Glucose 93 mg/dL (65-110); Potassium 3.8 mmol/L (3.4-5.0); Sodium 133 mmol/L (137-145); Total Protein 7.8 g/dL (6.3-8.2)
--- NOTE | 2025-07-15 13:14 | ED_ITS ---
HPI - General Adult General Chief complaint: Nausea/Vomiting/Diarrhea Stated complaint: bladder infection Time Seen by Provider: 07/15/25 12:37 History of Present Illness HPI narrative: 29-year-old female presenting to the emergency department for evaluation nausea vomiting diarrhea. Patient is currently approximately 12 weeks and is on antibiotics for a urinary tract infection. Patient states she has had intermittent nausea vomiting for the last few days it has been unable to keep her medications down. Patient states she was able to keep her the cephalexin down last night and this morning. Patient denies any current vaginal bleeding or abdominal pain. Related Data Home Medications ?Medication ?Instructions ?Recorded ?Confirmed ?Last Taken ?Type diphenhydramine 25 2 tablet PO HS PRN Sleep 05/12/25 09/04/21 21:00 History mg-acetaminophen 500 mg tablet (Tylenol PM Extra Strength) aspirin 81 mg tablet 81 mg PO DAILY 10/29/2304/1812/18/23 08:00 History sertraline 100 mg tablet 100 mg PO DAILY 12/19/2312/18/23 09:00 History vitamin-ferrous fumarate tablet PO 05/12/25 0 05/12/25 Unknown History 40 mg iron-folic acid 1 mg tablet Allergies Allergy/AdvReac Type Severity Reaction Status Date / Time coconut Allergy Unknown Verified 07/15/25 11:59 nitrofurantoin AdvReac Intermediate hives Verified 07/15/25 11:59 Review of Systems 2 Review of Systems: All systems reviewed & are unremarkable except as noted in HPI and below PMFSH Surgical History Surgical History History of tonsillectomy Family History Family History Mother Hypertension Grandparent Malignant neoplasm of prostate Social History Social History Social History: Smoking status: Never smoker Second hand tobacco smoke exposure: No Alcohol intake: current Drinks per week: 2 Substance use: never Substance use type: does not use Do You Feel Safe in your Home?: Yes Lack of Transportation: No Lack of Food: Never True Current Housing: I Have Housing Concerned About Future Housing: No Difficulty Paying Gas/Electric Bills: No Difficulty Paying for Meds: No Currently Unemployed: No Education: High School Diploma/GED Difficulty w/ Childcare or Family Care: No Living arrangements: with family Occupation/Education: occupation Gender identity (if verbalized by the patient): Female Sexual Orientation (if Verbalized by the Patient): Straight or Heterosexual Spiritual care concerns: No Exam 2 Narrative: APPEARANCE: Well appearing, no pain, no distress, well-nourished. HEAD: normocephalic, atraumatic. EYES: PERRLA/EOMI, conjunctivae clear. NOSE: Normal no drainage EARS:TMS clear with good light reflex. THROAT: Pharynx clear, no exudate. NECK: Supple. No adenopathy, no masses. RESPIRATORY: Airway patent, respirations nonlabored. Clear to auscultation bilaterally, no rales, rhonchi, wheezing. CARDIOVASCULAR: Regular rate and rhythm without murmurs rubs or gallops. ABDOMINAL: Soft, nontender, nondistended, normal bowel sounds MUSCULOSKELETAL: Moves all extremities. Strength/ROM intact, No edema, No calf tenderness. NEURO: Alert. Cranial nerves II through XII intact. Good gait. Good coordination SKIN: Warm, dry. Normal Color Course Vital Signs Vital signs: Vital Signs Temperature 97.6 F 07/15/25 11:57 Pulse Rate 92 07/15/25 11:57 Respiratory Rate 19 07/15/25 11:57 Blood Pressure 135/80 07/15/25 11:57 Pulse Oximetry 100 07/15/25 11:57 Oxygen Delivery Room Air 07/15/25 11:57 Temperature 97.6 F 07/15/25 11:57 Pulse Rate 92 07/15/25 11:57 Respiratory Rate 19 07/15/25 11:57 Blood Pressure 135/80 07/15/25 11:57 Pulse Oximetry 100 07/15/25 11:57 Oxygen Delivery Room Air 07/15/25 11:57 Medical Decision Making [facility] Narrative Medical decision making narrative: 29-year-old female presenting to the emergency department for evaluation for nausea vomiting. Patient is afebrile with no leukocytosis hemoglobin of 12.9. Patient has no significant acute abnormalities on her CMP UA was positive for ketones and high white blood cells, patient is currently on antibiotic. Urine culture was ordered. Patient was treated with 2 L of lactated Ringer's and does feel improved. Patient states she does have Zofran and Reglan at home. Patient states he does prefer to be discharged home. All questions and concerns were addressed. Differential Diagnosis Differential Diagnosis: Dehydration, abdominal cramping, nausea vomiting diarrhea, hyperemesis gravidarum, UTI Vital Signs Vital Signs: Vital Signs Temperature 97.6 F 07/15/25 11:57 Pulse Rate 92 07/15/25 11:57 Respiratory Rate 19 07/15/25 11:57 Blood Pressure 135/80 07/15/25 11:57 Pulse Oximetry 100 07/15/25 11:57 Oxygen Delivery Room Air 07/15/25 11:57 Temperature 97.6 F 07/15/25 11:57 Pulse Rate 92 07/15/25 11:57 Respiratory Rate 19 07/15/25 11:57 Blood Pressure 135/80 07/15/25 11:57 Pulse Oximetry 07/15/25 11:57 Oxygen Delivery Room Air 07/15/25 11:57 Lab Data Lab results reviewed: Yes I reviewed the patient's lab results. 07/15/25 12:43 07/15/25 12:43 Labs: Lab Results 07/15/25 Range/Units 12:43 WBC 9.3 (4.5-10.0) K/mm3 RBC 4.32 (4.2-5.4) M/mm3 Hgb 12.9 (12.0-15.0) g/dL Hct 38.6 (37.0-47.0) % MCV 89.4 (80-100) fl MCH 29.9 (26-34) pg MCHC 33.4 (32-36) g/dl RDW 13.0 (11.5-14.5) % Plt Count 250 (150-375) k/mm3 MPV 9.1 (7.4-10.4) fl Immature Gran % (Auto) 0.4 (0-0.5) % Neut % (Auto) 81.8 H (45.5-73.1) % Lymph % (Auto) 13.3 L (18.3-44.2) % [place] % (Auto) 3.8 (2.6-8.5) % Eos % (Auto) 0.4 (0-4.4) % Baso % (Auto) 0.3 (0.2-1.2) % Lymph # (Auto) 1.24 (0.9-3.2) K/mm3 [place] # (Auto) 0.4 (0.1-0.6) K/mm3 Eos # (Auto) 0.0 (0-0.3) K/mm3 Baso # (Auto) 0.0 (0.0-0.1) K/mm3 Abs Immat Gran (auto) 0.04 H (0.00-0.031) K/mm3 Absolute Neuts (auto) 7.6 H (1.3-6.7) K/mm3 Absolute Nucleated RBC 0.000 (0.0-0.012) K/mm3 Nucleated RBC % 0.0 (0.0-0.2) % Sodium 133 L (137-145) mmol/L Potassium 3.8 (3.4-5.0) mmol/L Chloride 103 (98-107) mmol/L Carbon Dioxide 14 L (22-30) mmol/L Anion Gap 16 H (4-12) mmol/L BUN 10 D (7-17) mg/dL Creatinine 0.49 L (0.7-1.0) mg/dL Estim Creat Clear Calc 120 ml/min Estimated GFR > 60 (59 - ) Glucose 93 (65-110) mg/dL Lactic Acid 1.1 (0.7-2.0) mmol/L Calcium 9.2 (8.4-10.2) mg/dL Total Bilirubin 1.5 H (0.2-1.3) mg/dL AST 25 (14-36) U/L ALT 13 (6-35) U/L Alkaline Phosphatase 52 (38-126) U/L Total Protein 7.8 (6.3-8.2) g/dL Albumin 4.3 (3.5-5.1) g/dL Beta HCG, Quant 72985.00 mIU/ML Urine Color Yellow (Yellow) Urine Appearance Clear (Clear) Urine pH 5.5 (5.0-9.0) Ur Specific [place] 1.021 (1.001-1.035) Urine Protein Trace (Negative) mg/dL Urine Glucose (UA) Negative (Negative) mg/dL Urine Ketones 4+ H (Negative) mg/dL Ur Blood (Man) Negative (Negative) Urine Nitrate Negative (Negative) Urine Bilirubin Negative (Negative) Urine Urobilinogen 1.0 (<2.0) mg/dL Leukocyte Esterase Rfl 2+ H (Negative) ASHOK/UL Urine RBC 0-2 (0-2) /hpf Urine WBC 21-50 H (0-3) /hpf Ur Squamous Epith Cells Occasional (Few) /hpf Urine Bacteria None seen /hpf Urine Casts 0-2 Discharge Plan Discharge Clinical Impression: Nausea & vomiting Patient Disposition: Home Condition: Stable Instructions: Antibiotic Form, Clear Liquid Diet (ED), Acute Nausea and Vomiting (ED) Additional Instructions: Zofran as needed for nausea control, Reglan as needed for additional nausea control. Clear liquid diet for the next 1-3 days. Antibiotic as directed until completed. Continue to have close follow-up with OB Gy[facility]. If you have any worsening symptoms then please call or return to the emergency department. Patient Language: [place] Leonean Prescriptions: No Action (w/o vit A)-Fe fum-FA 40 mg iron-1 mg tablet PO diphenhydramine-acetaminophen [Tylenol PM Extra Strength] 25-500 mg Tablet 2 tablet PO HS PRN (Reason: Sleep) aspirin 81 mg Tablet 81 mg PO DAILY sertraline 100 mg Tablet 100 mg PO DAILY Follow-up/Referrals: Kevin Clark MD [Primary Care Provider, Family Practice]
[2025-07-15 13:51] LABS: Beta HCG Quantitative 41433.00 mIU/ML
== END 2025-07-15 14:46 | disposition home or self-care (01) ==
PROVIDERS: Emergency Provider Emergency Medicine; PCP Family Medicine
DX: O21.9 Vomiting of pregnancy, unspecified (principal); O23.41 Unspecified infection of urinary tract in pregnancy, first trimester; N39.0 Urinary tract infection, site not specified; Z3A.12 12 weeks gestation of pregnancy
CPT/HCPCS: 36415; 80053; 81001; 83605; 84702; 85025; 87086; 96361; 96374; 99284; J2405; J7030

== ENCOUNTER 2025-11-13 16:50 | Observation (INO) | payer OTHER, SELFPAY ==
[2025-11-13] VITALS (8 sets, daily range): BP systolic 102–111; BP diastolic 49–62; PULSE 77–96; TEMP 36.6
--- OUTSIDE RECORDS SUMMARY | 2025-11-13 16:55 | XMS_ITS | Continuity of Care Document ---
Author Organization [facility] Address [address] [place] [address] Care Team Providers Care Nurse Licensed Practical Name Role Phone AMBROSIOALMASKATHRINE Primary Care Provider Assessment No assessment recorded. Plan of Treatment Reminders Order Date Submit Date Provider Last Modified By Organization Details Last Modified Time Details Appointments OB ROUTINE 2025 11:45A M Bren Cole CNM Not available Not available Not available U/S OB GROWTH 2025 09:00A M ULTRASOUND Not available Not available Not available OB ROUTINE 2025 09:45A M Bren Cole CNM Not available Not available Not available Lab None recorde d. Referral None recorde d. Procedures None recorde d. Surgeries None recorde d. Imaging US, obstetr ic, 2nd or 3rd trimest er 2024 025 [email or web address] [place], [address], [place], [address], 09/03/2025 22:40:55 Medication Orders None recorde d. Patient TargetsNo targets recorded. Patient InstructionsNo instructions recorded. Reason for Referral None Reported. Results Created Date Observation Date Name Description Value Unit Range Abnormal Flag Note LastModifiedBy Organization Detail LastModifiedTime 07/19/20 25 07/19/2025 [UNIT Y] ANEUP LOIDY NIPT fraction 13.7% normal Not Available Tony moncada [address], [place], [address], 07/19/2025 23:48:31 07/19/20 25 07/19/2025 [UNIT Y] ANEUP LOIDY NIPT 22Q11.2 microdeletio n LOW RISK <1 in 10,000 normal Not Available [facility] [address], [place], [address], 07/19/2025 23:48:31 07/19/20 25 07/19/2025 [UNIT Y] ANEUP LOIDY NIPT sex chromosome aneuploidy NOT DETECT ED normal Not Available [facility] [address], [place], [address], 07/19/2025 23:48:31 07/19/20 25 07/19/2025 [UNIT Y] ANEUP LOIDY NIPT monosomy X LOW RISK <1 in 10,000 normal Not Available [facility] [address], [place], [address], 07/19/2025 23:48:31 07/19/20 25 07/19/2025 [UNIT Y] ANEUP LOIDY NIPT trisomy 13 LOW RISK <1 in 10,000 normal Not Available [facility] [address], [place], [address], 07/19/2025 23:48:31 07/19/20 25 07/19/2025 [UNIT Y] ANEUP LOIDY NIPT trisomy 18 LOW RISK <1 in 10,000 normal Not Available [facility] [address], [place], [address], 07/19/2025 23:48:31 07/19/20 25 07/19/2025 [UNIT Y] ANEUP LOIDY NIPT trisomy 21 LOW RISK <1 in 10,000 normal Not Available [facility] [address], [place], [address], 07/19/2025 23:48:31 07/19/20 25 07/19/2025 [UNIT Y] ANEUP LOIDY NIPT sex MALE normal Not Available [facility] [address], [place], [address], 07/19/2025 23:48:31 07/19/20 25 07/19/2025 [UNIT Y] ANEUP LOIDY NIPT gestation SINGLE TON normal Not Available [facility] [address], [place], [address], 07/19/2025 23:48:31 07/19/20 25 07/19/2025 [UNIT Y] ANEUP LOIDY NIPT for detailed report, see pdf See PDF normal Not Available [facility] [address], [place], [address], 07/19/2025 23:48:31 06/22/20 25 06/22/2025 CT/GC AND TRICH OMONA S VAGIN ENMANUEL (RRNA ), URINE chlamydia trachomatis, PCR Negati ve negati ve Not Available [facility] (Lab) [address], [place], [address], 06/23/2025 22:37:02 06/22/20 25 06/22/2025 CT/GC AND TRICH OMONA S VAGIN ENMANUEL (RRNA ), URINE neisseria gonorrhoeae, PCR Negati ve negati ve Not Available [facility] (Lab) [address], [place], [address], 06/23/2025 22:37:02 06/22/20 25 06/22/2025 CT/GC AND TRICH OMONA S VAGIN ENMANUEL (RRNA ), URINE trichomonas vaginalis ribosomal RNA (rrna) Negati ve negati ve Not Available [facility] (Lab) [address], [place], [address], 06/23/2025 22:37:02 06/22/20 25 06/22/2025 CULTU RE: URINE result report SEE RESULT S BELOW Test: Cultu re: Urine Speci men Sourc e: Urine Voide d Speci men Type: Urine Speci men Date: 8/6/2 025 1546 Resul t Date: 2133 Resul t Statu s: Final resul t Abnor mal: No Resul ting Lab: [facility] [address] [facility] [address] Tel: CULTU RE ----- ----- ----- --- No growt h in 1 day (dete ction level of 10,00 0 colon ies / ml.) Not Available [facility] (Lab) [address] [facility], [place], [address], 06/23/2025 22:37:03 07/13/2007/13/2025 CBC W/DIF F CBC and differential CANCEL LED Clott ed Speci men Not Available [facility] (Lab) [address] [place], [address], 07/14/2025 05:30:34 07/13/2007/13/2025 HEPAT ITIS B SURFA CE ANTIG EN hepatitis B surface antigen Non-re active non-re active This assay was perfo rmed using [employer] ratio n reage nts and test kits. Value s obtai kimmy with other assay metho ds or kits canno t be used inter rondon eably . Not Available [facility] (Lab) [address] [place], [address], 07/14/2025 14:35:42 07/13/2007/13/2025 HIV 1/2 ANTIG EN/AN TIBOD Y, REFLE X CONFI RMATI ON HIV antigen/anti body Nonrea ctive nonrea ctive HIV-1 antig en and HIV-1 /HIV- 2 antib odies were not detec andree. No labor atory evide nce of HIV infec tion. Not Available [facility] (Lab) [address] [place], [address], 07/14/2025 14:35:42 07/13/2007/13/2025 HEPAT ITIS C ANTIB TANYA SCREE N, REFLE X TO CONFI RMATI ON hepatitis C antibody Non-re active non-re active Antib odies to HCV Not Detec andree, does not exclu de the possi bilit y of expos ure to HCV. Not Available [facility] (Lab) [address] [facility], [place], [address], 07/14/2025 14:35:43 07/13/20 25 07/13/2025 T4 FREE T4, free 0.77 NG/dL 0.54-1 .24 This assay is susce ptibl e to inter feren ce from high level s of bioti n which may false ly eleva te resul ts. Pleas e corre late with clini mitchell findi ngs. Not Available [facility] (Lab) [address] [facility], [place], [address], 07/14/2025 14:35:43 07/13/20 25 07/13/2025 TSH, REFLE X FREE T4 TSH 0.27 uIU/m L 0.30-5 .33 low Not Available [facility] (Lab) [address] [facility], [place], [address], 07/14/2025 14:35:44 07/13/20 25 07/13/2025 RUBEL LA IGG ANTIB TANYA, QUANT rubella antibodies, IgG Reacti ve reacti ve Not Available [facility] (Lab) [address] [facility], [place], [address], 07/14/2025 14:35:44 07/13/20 25 07/13/2025 RUBEL LA IGG ANTIB TANYA, QUANT rubella antibodies, IgG quant 11.3 IU/mL >=10 Non-r eacti ve (Non- Immun e) <10 IU/mL React neno (Immu ne) > or = 10 IU/mL Not Available [facility] (Lab) [address] [facility] [address], [place], [address], 07/14/2025 14:35:44 07/13/20 25 07/13/2025 RPR SCREE N, REFLE X TITER /CONF IRMAT ION RPR qualitative Nonrea ctive nonrea ctive Not Available [facility] (Lab) [address] [facility] [address], [place], [address], 07/14/2025 14:35:44 07/13/2007/13/2025 HEMOG LOBIN A1C hemoglobin A1C 4.9 % 4.0-5. 6 The Ameri can Diabe karthikeyan Assoc iatio n recom mends that a prima ry goal of thera py shoul d be a HBA1C of < 7% and that physi cians shoul d reeva luate the treat ment regim en in patie nts with HBA1C value s consi stent ly > 8%. <5.7% Ivette l 5.7 - 6.4% Incre ased risk for diabe karthikeyan >=6.5 % Diagn ostic of diabe karthikeyan <7.0% Goal of thera py >8.0% Actio n sugge sted Not Available [facility] (Lab) [address] [facility] [address], [place], [address], 07/14/2025 14:35:45 07/13/2007/13/2025 CULTU RE: URINE result report SEE RESULT S BELOW abnormal Test: Cultu re: Urine Speci men Sourc e: Urine Voide d Speci men Type: Urine Speci men Date: 2024 1730 Resul t Date: 2024 0806 Resul t Statu s: Final resul t Abnor mal: Yes Farnaz mccann Lab: [facility] [address] [facility] [address] Tel: CULTU RE ----- ----- ----- --- >100, 000 CFU/m l Esche delmi a coli (Abno rmal) EMERY PTIBI LITY ----- ----- ----- --- Esche delmi a coli METHO D AKILAH ----- ----- ----- ----- ----- ---- ----- ----- ----- ----- ----- AMPIC ILLIN <=8 ug/mL Susce ptibl e AMPIC ILLIN /SULB ACTAM <=4 ug/mL Susce ptibl e AZTRE ONAM <=4 ug/mL Susce ptibl e CEFAZ FUNMI <=2 ug/mL Susce ptibl e CEFEP MAC <=2 ug/mL Susce ptibl e CEFTA ZIDIM E <=1 ug/mL Susce ptibl e CEFTR IAXON E <=1 ug/mL Susce ptibl e CIPRO FLOXA JULIAN <=0.2 5 ug/mL Susce ptibl e GENTA MICIN <=2 ug/mL Susce ptibl e LEVOF LOXAC IN <=0.5 ug/mL Susce ptibl e MEROP ENEM <=1 ug/mL Susce ptibl e NITRO FURAN TOIN <=32 ug/mL Susce ptibl e PIPER ACILL IN/TA ZOBAC LIM <=8 ug/mL Susce ptibl e TOBRA MYCIN <=2 ug/mL Susce ptibl e TRIME THOPR IM/SÁNCHEZ LFAME THOXA ZOLE <=0.5 ug/mL Susce ptibl e Not Available [facility] (Lab) [address], [place], [address], 07/16/2025 09:10:22 07/13/20 25 07/13/2025 urina lysis , dipst ick Leukocytes +++ Not Available [facility] [address], [place], [address], 07/13/2025 18:18:08 07/13/20 25 07/13/2025 urina lysis , dipst ick Nitrite ++ Not Available [place] [address], [place], [address], 07/13/2025 18:18:08 07/13/20 25 07/13/2025 urina lysis , dipst ick Blood +++ Not Available [place] [address], [place], [address], 07/13/2025 18:18:08 07/13/20 25 07/13/2025 drug scree n, urine Amphetamines : negati ve Not Available [place] [address], [place], [address], 07/13/2025 18:16:25 07/13/20 25 07/13/2025 drug scree n, urine Cannabinoids : positi ve Not Available [place] [address], [place], [address], 07/13/2025 18:16:25 07/13/20 25 07/13/2025 drug scree n, urine Cocaine: negati ve Not Available [place] [address], [place], [address], 07/13/2025 18:16:25 07/13/20 25 07/13/2025 drug scree n, urine Opiates: negati ve Not Available [place] [address], [place], [address], 07/13/2025 18:16:25 07/13/20 25 07/13/2025 drug scree n, urine Phenocyclidi ne: negati ve Not Available [place] [address], [place], [address], 07/13/2025 18:16:25 07/13/20 25 07/13/2025 drug scree n, urine Barbiturates : negati ve Not Available [place] [address], [place], [address], 07/13/2025 18:16:25 07/13/20 25 07/13/2025 drug scree n, urine Benzodiazepi jorge: negati ve Not Available [place] [address], [place], [address], 07/13/2025 18:16:25 07/13/20 25 07/13/2025 drug scree n, urine Ethanol: negati ve Not Available [place] [address], [place], [address], 07/13/2025 18:16:25 07/13/20 25 07/13/2025 drug scree n, urine Hallucinogen s: negati ve Not Available [place] [address], [place], [address], 07/13/2025 18:16:25 07/13/20 25 07/13/2025 drug scree n, urine Inhalants: negati ve Not Available [place] [address], [place], [address], 07/13/2025 18:16:25 07/13/20 25 07/13/2025 drug scree n, urine Anabolic Steroids: negati ve Not Available [place] [address], [place], [address], 07/13/2025 18:16:25 08/12/20 25 08/12/2025 CBC W/DIF F WBC 6.3 10'3/ uL 3.5-10 .5 Not Available [facility] (Lab) [address] [place], [address], 08/13/2025 18:23:07 08/12/20 25 08/12/2025 CBC W/DIF F RBC 3.98 10'6/ uL (based on docume nted legal sex) 3.80-5 .20 Not Available [facility] (Lab) [address] , [place], [address], 08/13/2025 18:23:07 08/12/20 25 08/12/2025 CBC W/DIF F HGB 11.5 g/dL (based on docume nted legal sex) 11.6-1 5.4 low Not Available [facility] (Lab) [address], [place], [address], 08/13/2025 18:23:07 08/12/2008/12/2025 CBC W/DIF F HCT 36.9 % (based on docume nted legal sex) 34.0-4 5.0 Not Available [facility] (Lab) [address], [place], [address], 08/13/2025 18:23:07 08/12/2008/12/2025 CBC W/DIF F MCV 92.7 fL 80.0-9 9.0 Not Available [facility] (Lab) [address], [place], [address], 08/13/2025 18:23:07 08/12/2008/12/2025 CBC W/DIF F MCH 28.9 pg 27.0-3 4.0 Not Available [facility] (Lab) [address], [place], [address], 08/13/2025 18:23:07 08/12/20 25 08/12/2025 CBC W/DIF F MCHC 31.2 g/dL 32.0-3 5.5 low Not Available [facility] (Lab) [address], [place], [address], 08/13/2025 18:23:07 08/12/2008/12/2025 CBC W/DIF F RDW 13.8 % 11.0-1 5.0 Not Available [facility] (Lab) [address], [place], [address], 08/13/2025 18:23:07 08/12/2008/12/2025 CBC W/DIF F plt 241 10'3/ uL 150-40 0 Not Available [facility] (Lab) [address], [place], [address], 08/13/2025 18:23:07 08/12/20 25 08/12/2025 CBC W/DIF F MPV 10.0 fL 8.8-12 .1 Not Available [facility] (Lab) [address] [facility], [place], [address], 08/13/2025 18:23:07 08/12/2008/12/2025 CBC W/DIF F NRBC's 0.0 % 0.0 Not Available [facility] (Lab) [address] [facility], [place], [address], 08/13/2025 18:23:07 08/12/20 25 08/12/2025 CBC W/DIF F absolute NRBCs 0.0 10'3/ uL no refere nce range establ ished Not Available [facility] (Lab) [address] [facility], [place], [address], 08/13/2025 18:23:07 08/12/2008/12/2025 CBC W/DIF F neutrophils 70.7 % 34.0-7 3.0 Not Available [facility] (Lab) [address] [facility], [place], [address], 08/13/2025 18:23:07 08/12/20 25 08/12/2025 CBC W/DIF F lymphocytes 22.8 % 15.0-5 0.0 Not Available [facility] (Lab) [address] [facility], [place], [address], 08/13/2025 18:23:07 08/12/2008/12/2025 CBC W/DIF F monocytes 4.6 % 1.0-15 .0 Not Available [facility] (Lab) [address] [facility], [place], [address], 08/13/2025 18:23:07 08/12/2008/12/2025 CBC W/DIF F eosinophils 1.3 % 0.0-8. 0 Not Available [facility] (Lab) [address] [facility], [place], [address], 08/13/2025 18:23:07 09/26/20 25 08/12/2025 CBC W/DIF F basophils 0.3 % 0.0-2. 0 Not Available [facility] (Lab) [address] [facility], [place], [address], 08/13/2025 18:23:07 08/12/2008/12/2025 CBC W/DIF F immature granulocytes 0.3 % no define d refere nce range Immat ure Granu locyt es (IG) repre sents autom ated enume ratio n of Metam yeloc ytes, Myelo cytes and Promy elocy karthikeyan when IG is < 5%. Blast s are not inclu ded in IG and repor andree separ ately if prese nt. Not Available [facility] (Lab) [address], [place], [address], 08/13/2025 18:23:07 08/12/2008/12/2025 CBC W/DIF F absolute neutrophils 4.5 10'3/ uL 1.5-8. 0 Not Available [facility] (Lab) [address] [facility], [place], [address], 08/13/2025 18:23:07 08/12/2008/12/2025 CBC W/DIF F absolute lymphocytes 1.4 10'3/ uL 1.0-4. 0 Not Available [facility] (Lab) [address], [place], [address], 08/13/2025 18:23:07 08/12/2008/12/2025 CBC W/DIF F absolute monocytes 0.3 10'3/ uL 0.2-1. 0 Not Available [facility] (Lab) [address] [facility], [place], [address], 08/13/2025 18:23:07 08/12/20 25 08/12/2025 CBC W/DIF F absolute eosinophils 0.1 10'3/ uL 0.0-0. 6 Not Available [facility] (Lab) [address], [place], [address], 08/13/2025 18:23:07 08/12/20 25 08/12/2025 CBC W/DIF F absolute basophils 0.0 10'3/ uL 0.0-0. 3 Not Available [facility] (Lab) [address], [place], [address], 08/13/2025 18:23:07 08/12/20 25 08/12/2025 CBC W/DIF F absolute immature granulocytes 0.0 10'3/ uL 0.00-0 .10 Refer ence range s for nonbi nary/ inter sex or unspe cifie d gende r patie nts have not been estab lishe d. Pleas e refer to the follo wing table for range s estab lishe d for cisge nder patie nts and evalu ate in the clini mitchell gomez xt of the indiv idual patie nt: https ://huy duncan book. nm.or g/gen derx Not Available [facility] (Lab) [address], [place], [address], 08/13/2025 18:23:07 08/12/2008/12/2025 TYPE/ RH/SC REEN ABO/Rh type B POS Not Available [facility] (Lab) [address], [place], [address], 08/13/2025 18:23:08 08/12/2008/12/2025 TYPE/ RH/SC REEN antibody screen NEG Not Available [facility] (Lab) [address], [place], [address], 08/13/2025 18:23:08 08/12/2008/12/2025 TYPE/ RH/SC REEN exp date 2024 23:59 Not Available [facility] (Lab) [address], [place], [address], 08/13/2025 18:23:08 08/12/20 25 08/12/2025 TSH, REFLE X FREE T4 TSH 0.60 uIU/m L 0.30-5 .33 Not Available [facility] (Lab) [address] [facility], [place], [address], 08/13/2025 18:23:08 08/12/2008/12/2025 LEAD, BLOOD (ADUL T/PED IATRI C) lead, whole blood <1.0 mcg/d L <3.5 See Note 1 Eliecer sis was perfo rmed by Tanya Santana ed Plasm a Mass Spect romet ry (ICPM S) Note 1 This test was devel oped and its eliecer tical perfo rmanc e wale cteri stics have been deter mined by [employer] [facility]. It has not been clear ed or appro fabienne by the FDA. This assay has been valid ated pursu ant to the CLIA regul ation s and is used for clini mitchell purpo ses. Perfo rming Organ izati on Infor matio n: Site ID: [id number] Name: [employer]-Edil Donis ss: [id number] [place] [address] Dire tor: Hodan Blanca s Not Available [facility] (Lab) [address] [facility], [place], [address], 08/13/2025 18:23:09 09/02/2009/02/2025 TSH TSH 1.07 uIU/m L 0.30-5 .33 Not Available [facility] (Lab) [address] [place], [address], 09/03/2025 07:53:57 09/02/2009/02/2025 T4 FREE T4, free 0.65 NG/dL 0.54-1 .24 This assay is susce ptibl e to inter feren ce from high level s of bioti n which may false ly eleva te resul ts. Plejimmie e gaye late with clini mitchell findi ngs. Not Available [facility] (Lab) [address] [facility], [place], [address], 09/03/2025 07:53:58 06/22/20 25 06/22/2025 US, obste tric, 1st trime ster No observ ation record ed. [email or web address] [address], [place], [address], 06/23/2025 22:56:23 07/13/20 25 07/13/2025 US, obste tric, nucha l trans lucen cy No observ ation record ed. oss30 [place] [address], [place], [address], 07/13/2025 17:52:32 07/13/2007/13/2025 US, obste tric, nucha l trans lucen cy No observ ation record ed. [email or web address] [address], [place], [address], 07/14/2025 22:05:03 07/13/20 25 07/13/2025 US, kidne y No observ ation record ed. [address] [facility], [place], [address], 07/20/2025 10:03:09 07/13/20 25 07/13/2025 US, kidne y No observ ation record ed. kr[place] [id number] [facility] [address], [place], [address], 07/20/2025 11:57:17 09/02/2009/02/2025 US, obste tric, 2nd or 3rd trime ster No observ ation record ed. [facility] [address], [place], [address], 09/02/2025 16:59:55 09/02/2009/02/2025 US, obste tric, follo w-up No observ ation record ed. [email or web address] [address], [place], [address], 09/08/2025 09:56:57 10/31/2010/31/2025 non-s tress test No observ ation record ed. [email or web address], [place], [address], 10/31/2025 17:13:55 Result Notes None recorded. Problems Name Problem SNOMED Code Status Onset Date Resolution Date Notes Provider Name and Address Organization Details Recorded Time Pyelonep hritis 28170810 Completed suppress ion allergic to macrobid will do keflex 500mg daily [facility] 4 14:25:48 Nausea and vomiting 44878705 Completed zofran [facility] 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 4 14:25:48 Mixed anxiety and depressi ve disorder 923969342 Completed zoloft 50mg increase to 100mg daily [facility] [address] 14:25:[address] Concept Completed 201501/24/2021 Encntr for rn case management exam (general ) (routine ) w/o abn findings ;Recorde d Elsewher e: No Locat ion: [facility] S ource: EHR Title Search Manager servando: N Carterti ce ID: [id number] Antoine lable Time: 09:30:00 AM Ileana Childress [facility] 1 18:05:[address] Concept Completed 201601/24/2021 Encntr for general adult medical exam w/o abnormal findings ;Recorde d Elsewher e: No Locat ion: [facility] S ource: EHR Title Search Manager servando: N Carterti ce ID: [id number] Antoine lable Time: 10:00:00 AM Ileana Childress [facility] 1 18:05:09 Blood leukocyt e number above referenc e range [id number] Completed 201801/24/2021 Elevated white blood cell count, unspecif ied;Theodore rded Elsewher e: No Locat ion: [facility] S ource: EHR Title Search Manager servando: N Carterti ce ID: [id number] Antoine lable Time: 01:45:00 PM Ileana corley [facility] 18:05:08 Surveill ance of contrace ption Completed 201801/24/2021 Encounte r for surveill ance of contrace ptives, unspecif ied;Theodore rded Elsewher e: No Locat ion: [facility] S ource: EHR Title Search Manager servando: N Practi ce ID: [id number] Antoine lable Time: 08:15:00 AM Ileana corley [facility] 18:05:14 Surveill ance of vaginal hormone releasin g ring method of contrace ption Completed 201801/24/2021 Encounte r for surveill ance of vagnl ring;Pra ctice ID: [id number] Ileana Childress [facility], [facility] 18:05:17 Pregnanc y [id number] Completed 202009/21/2021 Brenda corley, [facility] 5 16:43:46 Pregnanc y 19045186 Completed 202212/22/2023 Brenda Peters [facility], [facility] 5 16:43:46 Pregnanc y 59499290 Active 2024 Brenda Peters [facility] 5 16:43:45 Past pregnanc y history of gestatio nal hyperten nova 389512983 Active 2024 first pregnanc y bASA 81 mg daily plan bASA again Bren Cole, RAFAEL [address], [place], [address], [facility] 17:42:55 Anxiety 90418598 Active 2024 sertrali ne 100mg daily Bren Cole CNM [address], [place], [address], [facility] 17:43:56 History of kidney infectio n 687136711 Active 2024 plan keflex now and then daily Bren Cole CNM [address], [place], [address], [facility] 17:43:41 Problem Notes None recorded. Procedures Surgical History Date Name Laterality Status Provider Name and Address Organization Details Recorded Time 09/13/20 24 Date of Last Pap Smear completed Brenda Peters [facility] 06/22/2025 17:27:28 06/18/20 24 IUD Removal completed Bren Cole CNM [address], [place], [address], [facility] 06/18/2024 11:48:36 01/28/20 24 IUD Insertion completed Bren Cole CNM [address], [place], [address], [facility] 01/28/2024 17:31:59 11/27/19 23 IUD Removal completed Bren Cole CNM [address], [place], [address], [facility] 11/27/2022 19:44:02 10/19/20 21 IUD Insertion completed [address], [place], [address], [facility] 10/19/2021 14:51:45 11/17/19 05 Oral surgery procedure completed Ileana Childress [facility] 06/04/2023 14:45:32 11/17/19 04 Tonsillectomy completed Ileana Childress [facility] 09/14/2020 16:00:06 Tonsillectomy completed Alyssia Wills [facility] 01/24/2025 09:25:00 Imaging Results None recorded. Procedure Notes None recorded. Medical Equipment None Reported. Allergies Allergen ID Allergen Name Allergen Category Reaction Reaction Severity Criticality Documentation Date Start Date Code Code System Note Provider Name and Address Organization Details Recorded Time 97793 nitrofura ntoin medicatio n hives moderate Not available 11/03/2020 7454 RxNorm Shirlene Call [facility] 1 16:56:42 32194 Macrobid medicatio n hives moderate Not available 01/24/2021 07844 1 RxNorm Ileana Childress [facility] 1 18:04:59 2536 coconut extract food,medi cation cough mild Not available 09/14/2020 75431 48 RxNorm Ileana Childress [facility] 0 16:00:31 2537 Medicinal product containin g nitrofura n derivativ e and acting as antibacte rial agent (product) medicatio n hives moderate Not available 09/14/2020 09461 2001 SNOMED Ileana Childress jory [facility] 0 16:00:50 99690 coconut allergeni c extract food,medi cation cough Not available Not available 09/30/20252016 89637 1 RxNorm Not Available [employer] - prod 5 03:13:32 94843 coconut oil food,medi cation cough Not available low 09/30/20252016 70706 39 RxNorm Not Available [employer] - prod 5 03:14:17 Medications Name Sig Start Date Stop Date Status Note LastModified by Organization Details LastModified Time nifedipin e ER 30 mg tablet,ex tended release 24 hr 01/24 completed Not Available Not Available Not Available Mirena 21 mcg/24 hr (up to 8 years) 52 mg intrauter ine device Take 1 device by intraute rine route. 06/18 completed mirena IUD insert lot [id number] Exp 03/2026 Not Available Not Available Not Available Colace 100 mg capsule 05/07 completed Not Available Not Available Not Available fluconazo le 150 mg tablet TAKE 1 TABLET BY MOUTH FOR 1 DAY 06/22 completed Not Available Not Available Not Available ampicilli n 500 mg capsule 09/13 completed Not Available Not Available Not Available valacyclo vir 1 gram tablet Take 1 tablet every 8 hours by oral route for 7 days. 01/24 completed Not Available Not Available Not Available hydrocodo ne 5 mg-acetam inophen 325 mg tablet 01/24 completed Not Available Not Available Not Available Claritin 10 mg tablet 07/13 completed Not Available Not Available Not Available ondansetr on HCl 4 mg tablet 01/24 completed Not Available Not Available Not Available ceftriaxo ne 250 mg solution for injection Bring to office for injectio n 10/24 completed patient is here for ceftriax one injectio n that patient brought in lot [id number] Exp 03/2026 was given into left hip Not Available Not Available Not Available sertralin e 100 mg tablet TAKE 1 TABLET DAILY 2024 active Not Available Not Available Not Avai lable valacyclo vir 500 mg tablet TAKE 1 TABLET BY MOUTH EVERY DAY active Not Available Not Available No t Available ciproflox acin 500 mg tablet take 1 tablet by oral route every 12 hours 03/22 completed Not Available Not Available Not Available sulfameth oxazole 800 mg-trimet hoprim 160 mg tablet TAKE 1 TABLET BY MOUTH EVERY 12 HOURS FOR 7 DAYS 06/22 completed Not Available Not Available Not Available triamcino lone acetonide 0.1 % topical cream 06/18 completed Not Available Not Available Not Available alprazola m 0.25 mg tablet TAKE 1 TABLET BY MOUTH EVERY 4 TO 6 HOURS NEEDED 11/27 completed Not Available Not Available Not Available metoclopr amide 5 mg tablet TAKE 1 TABLET BY MOUTH FOUR TIMES A DAY 06/22 completed Not Available Not Available Not Available nifedipin e 10 mg capsule TAKE 1 CAPSULE BY MOUTH EVERY 8 HOURS NEEDED ONLY active Not Available Not Available No t Available ondansetr on 4 mg tablet 06/18 completed Not Available Not Available Not Available cephalexi n 500 mg capsule TAKE 1 CAPSULE BY MOUTH EVERY DAY 2024 active Not Available Not Available Not Avai lable cephalexi n 500 mg tablet Take 1 tablet twice a day by oral route for 5 days. 03/22 completed Not Available Not Available Not Available scopolami ne 1 mg over 3 days transderm al patch APPLY 1 PATCH BY TRANSDER MAL ROUTE FOR 3 DAYS. 10/29 completed Not Available Not Available Not Available ondansetr on 4 mg disintegr ating tablet DISSOLVE 1 TABLET ON TONGUE EVERY 4 TO 6 HOURS NEEDED FOR 3 DAYS active Not Available Not Available No t Available sertralin e 50 mg tablet 01/24 completed Not Available Not Available Not Available metoclopr amide 10 mg tablet TAKE 1 TABLET BY MOUTH FOUR TIMES A DAY 06/04 completed Not Available Not Available Not Available clindamyc in phosphate 1 % topical solution APPLY 2 DROPS DAILY TO THE PROCEDUR E SITE 11/27 completed Not Available Not Available Not Available Microgest in Fe .04/15 (28) 1.5 mg-30 mcg (21)/75 mg (7) tablet take 1 tablet by oral route every day 10/13 completed Prescrib ed Elsewher e: Yes Loca tion: Sylvester pollock [facility] odify By: vernon moss DateTime : 09/18/20 11:30:00 AM Not Available Not Available Not Available Adult Low Dose Aspirin 81 mg tablet 81 mg every day by oral route. 01/24 completed Not Available Not Available Not Available NuvaRing 0.12 mg-0.015 mg/24 hr vaginal Insert 1 vaginal ring every month by vaginal route. 10/30 completed Not Available Not Available Not Available June 12/06 (21) 1 mg-20 mcg tablet take 1 tablet by oral route every day 10/13 completed Prescrib ed Elsewher e: Yes [facility]: kathy tz Encou nter DateTime : 10/13/20 17 10:00:00 AM Not Available Not Available Not Available 12/06 (28) 1 mg-20 mcg (21)/75 mg (7) tablet take 1 tablet by oral route every day 11/02 completed Prescrib ed Elsewher e: No Locat ion: Sylvester pollock [facility] odify By: majo abreu DateTime : 10/29/20 18 02:30:00 PM Not Available Not Available Not Available Beano 05/16 completed Not Available Not Available Not Available Motrin 05/07 completed Not Available Not Available Not Available Vitamin D 07/13 completed Not Available Not Available Not Available Tylenol 10/05 completed Not Available Not Available Not Available Stool Softener 06/18 completed Not Available Not Available Not Available 01/24 completed Not Available Not Available Not Available [facility] Stool Softener 08/26 completed Not Available Not Available Not Available Calcium + Vitamin D 08/26 completed Not Available Not Available Not Available + DHA active Not Available Not Available Not Available OneTouch Verio test strips USE TO TEST 4 TIMES DAILY (FASTING AND AFTER MEALS) 11/12 completed Not Available Not Available Not Available biotin 1 mg capsule 09/13 completed Not Available Not Available Not Available OneTouch Verio Flex Meter USE TO TEST DIRECTED 11/12 completed Not Available Not Available Not Available OneTouch Delica Plus Lancet 33 gauge USE TO TEST 4 TIMES DAILY (FASTING AND AFTER MEALS) 11/12 completed Not Available Not Available Not Available Flucelvax Quad (PF) 60 mcg (15 mcg x 4)/0.5 mL IM syringe PHARMACY ADMINIST ERED 01/24 completed Not Available Not Available Not Available calcium 200 mg-vitami n D3 1.25 mcg-magne sium 50 mg capsule 01/24 completed Not Available Not Available Not Available BinaxNOW COVID-19 Ag Self Test kit 05/07 completed Not Available Not Available Not Available Vitals Date Recorded Body weight Systolic And Diastolic Provider Name and Address Organization Details Last Updated DateTime 09/02/2025 15931.77652 g 106/69 mm[Hg] Alla Michael [facility] 09/02/2025 15:31:58 Social History Question Answer Notes LastModified by Organizat ion Details LastModified Time Tobacco Smoking Status Never Smoker Isabel Santana jory, [facility] 12/10/2023 13:54:52 Do You Have An Advance Directive? No [email or web address] Information n ot available 01/24/2021 If You Are , What Was Your Level Of Alcohol Consumption Prior To ? None [email or web address] Information not available 12/10/2023 How Many Years Have You Consumed Alcohol? 9 [email or web address] Information not available 08/26/2024 Are You Blind Or Do You Have Difficulty Seeing? No [email or web address] Information n ot available 01/24/2021 What Is Your Level Of Caffeine Consumption? Occasional [email or web address] Information not available 03/22/2021 How Much Tobacco Do You Chew? None [email or web address] Information not available 01/24/2021 In The 14 Days Before Symptom Onset, Have You Had Close Contact With A Laboratory-confirm ed COVID-19 While That Case Was Ill? No [email or web address] Information n ot available 01/24/2021 In The 14 Days Before Symptom Onset, Have You Had Close Contact With A Person Who Is Under Investigation For COVID-19 While That Person Was Ill? No [email or web address] Information not available 01/24/2021 Have You Been To An Area Known To Be High Risk For COVID-19? No [email or web address] Information not available 01/24/2021 Are You Deaf Or Do You Have Serious Difficulty Hearing? No [email or web address] Information not available 01/24/2021 What Type Of Diet Are You Following? REGULAR [email or web address] Information n ot available 01/24/2021 What Is The Highest Grade Or Level Of School You Have Completed Or The Highest Degree You Have Received? GG24447-7 [email or web address] Information not available 01/24/2021 Are There Any Guns Present In Your Home? No [email or web address] Information not available 01/24/2021 What Was The Date Of Your Most Recent Tobacco Screening? 01/28/2024 [email or web address] Information not available 01/28/2024 Do You Use Protection During Sex? No [email or web address] Information not available 01/24/2021 Do You Use Your Seat Belt Or Car Seat Routinely? Yes [email or web address] Information not available 01/24/2021 Are You Sexually Active? Yes [email or web address] Information not available 06/22/2025 Do You Have Smoke And Carbon Monoxide Detectors In Your Home? Yes [email or web address] Information not available 01/24/2021 How Much Tobacco Do You Smoke? No [email or web address] Information not available 09/15/2020 Do You Use Sunscreen Routinely? No [email or web address] Information not available 01/24/2021 Has Tobacco Cessation Counseling Been Provided? No [email or web address] Information not available 12/10/2023 How Many Years Have You Smoked Tobacco? 0 [email or web address] Information not available 09/03/2023 Have You Used IV Drugs? No [email or web address] Information not available 01/24/2021 Do You Have Difficulty Walking Or Climbing Stairs? No [email or web address] Information not available 12/10/2023 Sex: Unknown Functional Status Question Answer Note LastModified by Organizat ion Details LastModified Time Do you use any illicit or recreational drugs? No [email or web address] Information not available 01/24/2021 Do you or have you ever used any other forms of tobacco or nicotine? No [email or web address] Information not available 12/10/2023 What is your level of alcohol consumption? None [email or web address] Information not available 09/13/2024 Do you or have you ever used smokeless tobacco? Never used smokeless tobacco [email or web address] Information not available 12/10/2023 Are you currently employed? Yes [email or web address] Information not available 06/22/2025 Are you able to walk independently without assistance or assistive devices? YESWOREST [email or web address] Information not available 01/24/2021 Are you able to care for yourself independently? 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 No [email or web address] Information not available 12/10/2023 Do you or have you ever used e-cigarettes or vape? Never used electronic cigarettes [email or web address] Information not available 12/10/2023 What is your exercise level? Occasional [email or web address] Information not available 09/15/2020 Mental Status Question Answer Note LastModified by Organization D etails LastModified Time Do you feel stressed (tense, restless, nervous, or anxious, or unable to sleep at night)? [id number] [email or web address] Information not available 07/02/2023 Family History Relationship Description Onset Age of this Age Resolved Age Notes LastModified by Organization Details LastModified Time Mother Cyst of ovary [email or web address] Not available 2024 10:59:33 Mother Endometritis Not avail able 11/07/2025 10:59:33 Mother Uterine adenomyosis [email or web address] Not available 10/18 10:59:33 Mother Hypertensive disorder [email or web address] Not available 2024 16:39:17 Mother Hypertensive disorder [email or web address] Not available 2024 10:59:33 Paternal Grandfather Malignant neoplasm of prostate [email or web address] Not available 2024 10:59:33 Medical History Condition Response Allergies (Food, seasonal, environmental ) N Other N Drug/Latex Allergies/Reactions Y Blood Transfusion N Breast Cancer N Dermatologic Disorders N Lung Disease N Defects or Inherited Disease N Breast Problem N Gestational Diabetes N Hematologic disorders N Anesthesia Complications N History of STI N Deep Vein Thrombosis N Polycystic ovary syndrome N Anxiety Disorder Y Autoimmune disease N Arthritis N Polyps N Infertility N Acid Reflux (GERD) N History of abnormal pap N Cancer N Varicosities N Stroke N Neurologic/Epilepsy N Endometriosis N High Cholesterol N Fibromyalgia N Headaches N Kidney Disease N Heart Problems N Thyroid Problems N Kidney or Bladder Problems N GI Problems N Eating Disorder N Anemia N Art (IVF or FET) N Psychiatric Illness N Ovarian Cancer N Diabetes N Pulmonary (TB, Asthma) N Hepatitis/Liver Disease N No Past Medical History N Eczema N Urinary Tract Infection N Abuse/Domestic Violence N Asthma N Trauma/Violence N Depression/ depression Y Heart Disease N Pre-Eclampsia N Hypertension N Osteoporosis N Thrombophilias N Gynecological History Statement/Question Response Date of Last Mammogram Flow Moderate Date of LMP 04/11/2025 N Was last menstrual period normal Y STIs/STDs N Date of control 10/19/2021 Desired Control Method None Abnormal Pap N On BCP's at Conception? N HPV Vaccine Y Duration of Flow (days) 6 Current Control Method Age at First Child 26 Are cycles usually normal Y Sexually Active? Y Menses Monthly N Date of DEXA bone scan Age of first menstrual cycle 13 Date of Last Pap Smear 09/13/2024 Sexual Problems? N LMP Approximate N Obstetrics History GPAL:G 3 P 2 0 0 2 Type Value Full Term 2 Living 2 Total 3 Immunizations Vaccine Type Date Status Note Provider Nam e and Address Organization Details Recorded Time COVID-19, mRNA, LNP-S, PF, 30 mcg/0.3 mL dose 10/30/2021 completed Ileana corley, [facility] 05/07/2023 11:42:10 Influenza, MDCK, quadrivalent, PF 08/14/2023 completed Alyssia corley [facility] 08/26/2024 11:31:51 COVID-19, mRNA, LNP-S, PF, jono-sucrose, 30 mcg/0.3 mL 08/14/2023 completed Alyssia corley [facility] 08/26/2024 11:31:51 Past Encounters Encounter ID Performer Location Encounter Start Date Encounter Closed Date Diagnosis/Indication Diagnosis SNOMED-CT Code Diagnosis ICD10 Code Diagnosis IMO Codes Diagnosis Note [id number] Bren Cole CNM [place] [address] [place] [address] 08/12/2025 11:43:57 08/12/2025 14:52:33 Gestation period, 17 weeks [id number] Z3A.17 [id number] Sloan Bañuelos MD [place] [address] [place] [address] 09/02/2025 14:26:20 09/02/2025 15:29:07 Screening status [id number] Z36.3 Z3A.20 [id number] Bren Cole CNM [place] [address] [address] 09/02/2025 14:26:36 09/02/2025 15:47:28 Gestation period, 20 weeks [id number] Z3A.20 [id number] Health Concerns Section Related Observation LastModified by Organization Detai ls LastModified Time None Recorded Concern Status LastModified by Organization Details LastModified Time None Recorded Payers Encounter Date Sequence Insurance Name Policy Number Policy Lamas Covered Member ID Lamas Member ID Guarantor Name 09/02/2025 1 [facility] [id number] Herbert Martin [id number] Ivan Martin Notes Date Note Type Note Provider Name and Address Organization Details Recorded Time 09/02/2025 text/html Generic HPI TemplateReported by Patient Bren Griffin RAFAEL Cole [address], [place], [address], [facility] 09/02/2025 15:46:34 OBGyn Episode Ob Episode Information Episode Created Date Number of Fetuses Patient Bloodtype Patient rh Status Prepregnancy Weight lbs Domestic Partner Domestic Partner Phone Father Name Blower Operator Status 06/22/20 25 1 B Positive 150 Herbert OPEN Fetus Data First Name Last Name Admitted to NICU Weight (g) Sex Living Outcome Pediatric Complications Fetus ID Race Codes Race Delivery Type [id number] Problems Problem Notes TSH low rpt [id number] growth us Problem Name Start Date End Date Resolution Snomed Code Not e Past history of gestational hypertension 06/22/2025 [id number] first bASA 81 mg daily plan bASA again History of kidney infection 07/13/2025 [id number] plan keflex now and then daily Anxiety 06/22/2025 [id number] sertralin e 100mg daily Orber Calculation Initial Rober Date Initial Exam Date Initial Exam Provider Initial Ultrasound Date Last Menstrual Period Date Ultra Sound Weeks Gestation 01/18/2026 06/22/2025 06/21/2025 04/11/2025 10 Eighteen To Twenty Week Rober Update Ultra Sound Date Fundal Height At Umbil Quickening Date Ultra Sound Latest Weeks Gestation Final Rober Confirmed By Final Rober Confirmed Date Final Rober Date Ultra Sound Latest Days Gestation 09/02/20 25 19 [email or web address] 09/02/2025 01/22/20 26 5 Pre- Flowsheet Flowsheet Date 06/22/2025 Burch Score Blood Edema Fundus Height Fundus Units Glucose Ketones Leukocytes Nitrite Labor Signs Protein Cervic Dilation Cervic Effacement Cervic Station Type Weight in lbs Pre/Post Dialysis Refused BP Diastolic BP Location Tested BP Systolic BP Type Fetus Heart Rate Present Fetus Movement Comments Flowsheet Date 06/22/2025 Burch Score Blood Edema Fundus Height Fundus Units Glucose Ketones Leukocytes Nitrite Labor Signs Protein Cervic Dilation Cervic Effacement Cervic Station Type Weight in lbs Pre/Post Dialysis Refused Weight 148.477158074434 BP Diastolic BP Location Tested BP Systolic BP Type 70 L arm 110 sitting Fetus Heart Rate Present Fetus Movement Comments reviewed US, nasuea/vomiting present if doesnt take zofran, hx gestational htn first plan basa x 1 , 2 vaginal deliveries w/o additional complications education and precautions, begin routine care Flowsheet Date 07/13/2025 Burch Score Blood Edema Fundus Height Fundus Units Glucose Ketones Leukocytes Nitrite Labor Signs Protein Cervic Dilation Cervic Effacement Cervic Station Type Weight in lbs Pre/Post Dialysis Refused BP Diastolic BP Location Tested BP Systolic BP Type Fetus Heart Rate Present Fetus Movement Comments Flowsheet Date 07/13/2025 Burch Score Blood Edema Fundus Height Fundus Units Glucose Ketones Leukocytes Nitrite Labor Signs Protein Cervic Dilation Cervic Effacement Cervic Station Type Weight in lbs Pre/Post Dialysis Refused Weight 147.523995003195 BP Diastolic BP Location Tested BP Systolic BP Type 67 L arm 103 sitting Fetus Heart Rate Present Fetus Movement A No Comments reviewed us, sediment in mariola dder, +blood in urine. discomfort kidney area, no fever vomiting or other associated sxs, urine for culture and plan renal US today f/u 4 weeks, start bASA today, education and precautions Flowsheet Date 08/12/2025 Burch Score Blood Edema Fundus Height Fundus Units Glucose Ketones Leukocytes Nitrite Labor Signs Protein Cervic Dilation Cervic Effacement Cervic Station Type Weight in lbs Pre/Post Dialysis Refused Weight 148.833076166034 BP Diastolic BP Location Tested BP Systolic BP Type 71 L arm 113 sitting Fetus Heart Rate Present Fetus Movement Comments start b12 morning and aftern oon, add vit d 3 daily, labs today, precautions and education f/u anatomy Flowsheet Date 09/02/2025 Burch Score Blood Edema Fundus Height Fundus Units Glucose Ketones Leukocytes Nitrite Labor Signs Protein Cervic Dilation Cervic Effacement Cervic Station Type Weight in lbs Pre/Post Dialysis Refused BP Diastolic BP Location Tested BP Systolic BP Type Fetus Heart Rate Present Fetus Movement Comments Flowsheet Date 09/02/2025 Burch Score Blood Edema Fundus Height Fundus Units Glucose Ketones Leukocytes Nitrite Labor Signs Protein Cervic Dilation Cervic Effacement Cervic Station Type Weight in lbs Pre/Post Dialysis Refused 152.799863560227 BP Diastolic BP Location Tested BP Systolic BP Type 69 L arm 106 sitting Fetus Heart Rate Present Fetus Movement A Yes Comments +FM, anatomy complete, takin g keflex daily, rpt tsh today, precautions and education f/u 4 weeks Flowsheet Date 09/30/2025 Burch Score Blood Edema Fundus Height Fundus Units Glucose Ketones Leukocytes Nitrite Labor Signs Protein Cervic Dilation Cervic Effacement Cervic Station Type Weight in lbs Pre/Post Dialysis Refused 158.623370359380 BP Diastolic BP Location Tested BP Systolic BP Type 72 L arm 118 sitting Fetus Heart Rate Present A 156 Present Fetus Movement A Yes Comments +FM doing well, no complaint s, plan gct at next visit f/u 4 weeks Flowsheet Date 10/24/2025 Burch Score Blood Edema Fundus Height Fundus Units Glucose Ketones Leukocytes Nitrite Labor Signs Protein Cervic Dilation Cervic Effacement Cervic Station Type Weight in lbs Pre/Post Dialysis Refused Weight 167.041611014104 BP Diastolic BP Location Tested BP Systolic BP Type 73 L arm 113 sitting Fetus Heart Rate Present A 150 Fetus Movement A Yes Comments ligament pain has belt, ok f or ice, +FM, doing well GCT today, education and precautions rx for tdap and rsv given f/u 2 weeks Flowsheet Date 11/07/2025 Burch Score Blood Edema Fundus Height Fundus Units Glucose Ketones Leukocytes Nitrite Labor Signs Protein Cervic Dilation Cervic Effacement Cervic Station Type Weight in lbs Pre/Post Dialysis Refused Weight 168.393140393177 BP Diastolic BP Location Tested BP Systolic BP Type 75 L arm 113 sitting Fetus Heart Rate Present A 147 Present Fetus Movement A Yes Comments refill zofran, plan procardi a 10mg XL prn, ptl precautions reviewed discuss rsv and tdap next visit f/u 2 weeks Menstrual History Last Menstrual Date Menses Monthly On Bcp Conception Prior Menses Frequency Hcg Plus Date Menarche Onset Age 0504/11/2025 false false 15 Delivery Information Delivery Date Delivery Type Labor Anesthesia Weeks Gestation Incision Type Labor Labor Length Hrs Delivered By Post Complications Tubal Sterilization Discharge Date Comments Discharge Information Feeding Method Contraceptive Method Maternal HG B and HCT Levels
--- OUTSIDE RECORDS SUMMARY | 2025-11-13 16:55 | XMS_ITS | Clinical Summary ---
Author Organization [facility] [employer] 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 Name Role Phone Unavailable Primary Care Provider Unavailabl e Social History Tobacco Use Types Packs/Day Years Used Date Smoking Tobacco: Never Assessed Comments Unknown Sex and Gender Information Value Date Recorded Sex Assigned at Not on file Legal Sex Female 10:14 PM EST Gender Identity Not on file Sexual Orientation Not on file Plan of Treatment Health Maintenance Due Date Last Done Comments Depression: Screening Annual ly using PHQ-2/9 in Adults 18 yrs or above (or HM Modifier)([facility]) 2011 Hepatitis C Virus Infection in Adolescents and Adults: Screening (or Modifier) ([facility]) 2011 SDOH Screening Reminder: Tiffani sin for all adults ([facility]) 2011 Tobacco Smoking Cessation: i n Adults excluding Women: Behavioral and Pharmacotherapy Interventions ([facility]) 2011 DTaP/Tdap/Td Vaccines ([facility]) (1 - Tdap) 2012 Cervical Cancer Screenin 1-65 yrs of age (or Modifier) 2014 Cervical Cancer Screening: P ap every 3 yrs pts age 21-65 2014 Cervical Cancer: Pap Screeni ng with Modifier timing ([facility]) 2014 Cervical Cancer: hrHPV alone or with cotesting Pap for Pts 30-65yrs screening every 5yrs ([facility]) 2014 Flu Vaccination: Yearly for ages 18mos through 64 years (or Modifier)([facility]) 06/17/2025 COVID-19 Vaccine Screening: Initial Series and Booster Status ([facility]) (2024- season) 2025 Zoster/Shingles Vaccine Seri es Screening: Adults aged 18+ yrs (or HM Modifiers)([facility]) (1 of 2) 2043 Pneumococcal Vaccination Scr eening: Pts 0-19 & 19-49 yrs of age ([facility]) Aged Out No longer eligible based on patient's age to complete this topic Medical Devices Not on file Insurance
--- OUTSIDE RECORDS SUMMARY | 2025-11-13 16:55 | XMS_ITS | Continuity of Care Document ---
Author Organization [facility] Address [address] [place] [address] [address] Care Team Providers Care Hourly Shift Manager Name Role Phone KATHRINE AMBROSIO Primary Care Provider Assessment Encounter Date Assessment Date Assessment LastModified by Organization Details LastModified Time 09/30/2025 09/30/2025 Patient is ___weeks . Discussed plan. [email or web address] Not available 09/30/2025 16:59:50 Plan of Treatment Reminders Order Date Submit [...] recorde d. Surgeries None recorde d. Imaging None recorde d. Medication Orders None recorde d. Patient TargetsNo targets recorded. Patient InstructionsNo instructions recorded. Reason for Referral None Reported. Results Created Date Observation Date Name Description Value Unit Range Abnormal Flag Note LastModifiedBy Organization Detail LastModifiedTime 07/19/2007/19/2025 [UNIT Y] ANEUP LOIDY NIPT fraction 13.7% normal Not Available Tony moncada [address], [place], [address], 07/19/2025 23:48:31 07/19/2007/19/2025 [UNIT Y] ANEUP LOIDY NIPT 22Q11.2 microdeletio n LOW RISK <1 in 10,000 normal Not Available [facility] [address], [place], [address], 07/19/2025 23:48:31 07/19/20 25 07/19/2025 [UNIT Y] ANEUP LOIDY NIPT sex chromosome aneuploidy NOT DETECT ED normal Not Available [facility] [address], [place], [address], 07/19/2025 23:48:31 07/19/20 25 07/19/2025 [UNIT Y] ANEUP LOIDY NIPT monosomy X LOW RISK <1 in 10,000 normal Not Available [facility] [address], [place], [address], 07/19/2025 23:48:31 07/19/20 25 07/19/2025 [UNIT Y] ANEUP LOIDY NIPT trisomy 13 LOW RISK <1 in 10,000 normal Not Available [facility] [address], [place], [address], 07/19/2025 23:48:31 07/19/20 25 07/19/2025 [UNIT Y] ANEUP LOIDY NIPT trisomy 18 LOW RISK <1 in 10,000 normal Not Available [facility] [address], [place], [address], 07/19/2025 23:48:31 07/19/20 25 07/19/2025 [UNIT Y] ANEUP LOIDY NIPT trisomy 21 LOW RISK <1 in 10,000 normal Not Available [facility] [address], [place], [address], 07/19/2025 23:48:31 07/19/20 25 07/19/2025 [UNIT Y] ANEUP LOIDY NIPT sex MALE normal Not Available [facility] [address], [place], [address], 07/19/2025 23:48:31 07/19/20 25 07/19/2025 [UNIT Y] ANEUP LOIDY NIPT gestation SINGLE TON normal Not Available [facility] [address], [place], [address], 07/19/2025 23:48:31 07/19/20 25 07/19/2025 [UNIT Y] ANEUP LOIDY NIPT for detailed report, see pdf See PDF normal Not Available [facility] [address], [place], [address], 07/19/2025 23:48:31 06/22/20 25 06/22/2025 CT/GC AND TRICH OMONA S VAGIN ENMANUEL (RRNA ), URINE chlamydia trachomatis, PCR Negati ve negati ve Not Available [facility] (Lab) [address], [place], [address], 06/23/2025 22:37:02 06/22/20 25 06/22/2025 CT/GC AND TRICH OMONA S VAGIN ENMANUEL (RRNA ), URINE neisseria gonorrhoeae, PCR Negati ve negati ve Not Available [facility] (Lab) [address], [place], [address], 06/23/2025 22:37:02 06/22/20 25 06/22/2025 CT/GC AND TRICH OMONA S VAGIN ENMANUEL (RRNA ), URINE trichomonas vaginalis ribosomal RNA (rrna) Negati ve negati ve Not Available [facility] (Lab) [address], [place], [address], 06/23/2025 22:37:02 06/22/20 25 06/22/2025 CULTU RE: URINE result report SEE RESULT S BELOW Test: Cultu re: Urine Speci men Sourc e: Urine Voide d Speci men Type: Urine Speci men Date: 1546 Resul t Date: 8/7/2 025 2133 Resul t Statu s: Final resul t Abnor mal: No Resul ting Lab: [facility] [address] [facility] [address] [address] Tel: CULTU RE ----- ----- ----- --- No growt h in 1 day (dete ction level of 10,00 0 colon ies / ml.) Not Available [facility] (Lab) [address], [place], [address], 06/23/2025 22:37:03 07/13/2007/13/2025 CBC W/DIF F CBC and differential CANCEL LED Clott ed Speci men Not Available [facility] (Lab) [address] [place], [address], 07/14/2025 05:30:34 07/13/2007/13/2025 HEPAT ITIS B SURFA CE ANTIG EN hepatitis B surface antigen Non-re active non-re active This assay was perfo rmed using [employer] ratio n reage nts and test kits. Value s obtai kimmy with other assay metho ds or kits canno t be used inter rondon eably . Not Available [facility] (Lab) [address], [place], [address], 07/14/2025 14:35:42 07/13/2007/13/2025 HIV 1/2 ANTIG EN/AN TIBOD Y, REFLE X CONFI RMATI ON HIV antigen/anti body Nonrea ctive nonrea ctive HIV-1 antig en and HIV-1 /HIV- 2 antib odies were not detec andree. No labor atory evide nce of HIV infec tion. Not Available [facility] (Lab) [address] [place], [address], 07/14/2025 14:35:42 07/13/20 25 07/13/2025 HEPAT ITIS C ANTIB TANYA SCREE N, REFLE X TO CONFI RMATI ON hepatitis C antibody Non-re active non-re active Antib odies to HCV Not Detec andree, does not exclu de the possi bilit y of expos ure to HCV. Not Available [facility] (Lab) [address], [place], [address], 07/14/2025 14:35:43 07/13/20 25 07/13/2025 T4 FREE T4, free 0.77 NG/dL 0.54-1 .24 This assay is susce ptibl e to inter feren ce from high level s of bioti n which may false ly eleva te resul ts. Pleas e corre late with clini mitchell findi ngs. Not Available [facility] (Lab) [address], [place], [address], 07/14/2025 14:35:43 07/13/20 25 07/13/2025 TSH, REFLE X FREE T4 TSH 0.27 uIU/m L 0.30-5 .33 low Not Available [facility] (Lab) [address], [place], [address], 07/14/2025 14:35:44 07/13/20 25 07/13/2025 RUBEL LA IGG ANTIB TANYA, QUANT rubella antibodies, IgG Reacti ve reacti ve Not Available [facility] (Lab) [address], [place], [address], 07/14/2025 14:35:44 07/13/20 25 07/13/2025 RUBEL LA IGG ANTIB TANYA, QUANT rubella antibodies, IgG quant 11.3 IU/mL >=10 Non-r eacti ve (Non- Immun e) <10 IU/mL React neno (Immu ne) > or = 10 IU/mL Not Available [facility] (Lab) [address], [place], [address], 07/14/2025 14:35:44 07/13/20 25 07/13/2025 RPR SCREE N, REFLE X TITER /CONF IRMAT ION RPR qualitative Nonrea ctive nonrea ctive Not Available [facility] (Lab) [address], [place], [address], 07/14/2025 14:35:44 07/13/2007/13/2025 HEMOG LOBIN A1C hemoglobin A1C 4.9 % 4.0-5. 6 The Ameri can [employer] karthikeyan Ass[employer] iatio n recom mends that a prima ry goal of thera py elyse d be a HBA1C of < 7% and that physi cians shoul d reeva luate the treat ment regim en in patie nts with HBA1C value s consi stent ly > 8%. <5.7% Ivette l 5.7 - 6.4% Incre ased risk for diabe karthikeyan >=6.5 % Diagn ostic of diabe karthikeyan <7.0% Goal of thera py >8.0% Actio n briange sted Not Available [facility] (Lab) [address], [place], [address], 07/14/2025 14:35:45 07/13/2007/13/2025 CULTU RE: URINE result report SEE RESULT S BELOW abnormal Test: Cultu re: Urine Speci men Sourc e: Urine Voide d Speci men Type: Urine Speci men Date: 2024 1730 Resul t Date: 2024 0806 Resul t Statu s: Final resul t Luciaor mal: Yes Farnaz mccann Lab: [facility] [address] [facility] [address] Tel: CULTU RE ----- ----- ----- --- >100, 000 CFU/m l Esche delmi a coli (Abno rmal) SHAUNACE PTIBI LITY ----- ----- ----- --- Esche [...] <=0.5 ug/mL Susce ptibl e Not Available [facility] (Lab) [address], [place], [address], 07/16/2025 09:10:22 07/13/20 25 07/13/2025 urina lysis , dipst ick Leukocytes +++ Not Available [facility] stephanie [address], [place], [address], 07/13/2025 18:18:08 07/13/20 25 07/13/2025 urina lysis , dipst ick Nitrite ++ Not Available [facility] [address], [place], [address], 07/13/2025 18:18:08 07/13/20 25 07/13/2025 urina lysis , dipst ick Blood +++ Not Available [facility] [address], [place], [address], 07/13/2025 18:18:08 07/13/20 25 07/13/2025 drug scree n, urine Amphetamines : negati ve Not Available [facility] [address], [place], [address], 07/13/2025 18:16:25 07/13/20 25 07/13/2025 drug scree n, urine Cannabinoids : positi ve Not Available [facility] [address], [place], [address], 07/13/2025 18:16:25 07/13/20 25 07/13/2025 drug scree n, urine Cocaine: negati ve Not Available [facility] [address], [place], [address], 07/13/2025 18:16:25 07/13/20 25 07/13/2025 drug scree n, urine Opiates: negati ve Not Available [facility] [address], [place], [address], 07/13/2025 18:16:25 07/13/20 25 07/13/2025 drug scree n, urine Phenocyclidi ne: negati ve Not Available [facility] [address], [place], [address], 07/13/2025 18:16:25 07/13/20 25 07/13/2025 drug scree n, urine Barbiturates : negati ve Not Available [facility] [address], [place], [address], 07/13/2025 18:16:25 07/13/20 25 07/13/2025 drug scree n, urine Benzodiazepi jorge: negati ve Not Available [facility] [address], [place], [address], 07/13/2025 18:16:25 07/13/20 25 07/13/2025 drug scree n, urine Ethanol: negati ve Not Available [facility] [address], [place], [address], 07/13/2025 18:16:25 07/13/20 25 07/13/2025 drug scree n, urine Hallucinogen s: negati ve Not Available [facility] [address], [place], [address], 07/13/2025 18:16:25 07/13/20 25 07/13/2025 drug scree n, urine Inhalants: negati ve Not Available [facility] [address], [place], [address], 07/13/2025 18:16:25 07/13/20 25 07/13/2025 drug scree n, urine Anabolic Steroids: negati ve Not Available [facility] [address], [place], [address], 07/13/2025 18:16:25 08/12/20 25 08/12/2025 CBC W/DIF F WBC 6.3 10'3/ uL 3.5-10 .5 Not Available [facility] (Lab) [address], [place], [address], 08/13/2025 18:23:07 08/12/20 25 08/12/2025 CBC W/DIF F RBC 3.98 10'6/ uL (based on docume nted legal sex) 3.80-5 .20 Not Available [facility] (Lab) [address], [place], [address], 08/13/2025 18:23:07 08/12/20 25 08/12/2025 CBC W/DIF F HGB 11.5 g/dL (based on docume nted legal sex) 11.6-1 5.4 low Not Available [facility] (Lab) [address], [place], [address], 08/13/2025 18:23:07 08/12/2008/12/2025 CBC W/DIF F HCT 36.9 % (based on docume nted legal sex) 34.0-4 5.0 Not Available [facility] (Lab) [address], [place], [address], 08/13/2025 18:23:07 08/12/2008/12/2025 CBC W/DIF F MCV 92.7 fL 80.0-9 9.0 Not Available [facility] (Lab) [address], [place], [address], 08/13/2025 18:23:07 08/12/2008/12/2025 CBC W/DIF F MCH 28.9 pg 27.0-3 4.0 Not Available [facility] (Lab) [address], [place], [address], 08/13/2025 18:23:07 08/12/20 25 08/12/2025 CBC W/DIF F MCHC 31.2 g/dL 32.0-3 5.5 low Not Available [facility] (Lab) [address], [place], [address], 08/13/2025 18:23:07 08/12/2008/12/2025 CBC W/DIF F RDW 13.8 % 11.0-1 5.0 Not Available [facility] (Lab) [address], [place], [address], 08/13/2025 18:23:07 08/12/2008/12/2025 CBC W/DIF F plt 241 10'3/ uL 150-40 0 Not Available [facility] (Lab) [address], [place], [address], 08/13/2025 18:23:07 08/12/20 25 08/12/2025 CBC W/DIF F MPV 10.0 fL 8.8-12 .1 Not Available [facility] (Lab) [address], [place], [address], 08/13/2025 18:23:07 08/12/20 25 08/12/2025 CBC W/DIF F NRBC's 0.0 % 0.0 Not Available [facility] (Lab) [address], [place], [address], 08/13/2025 18:23:07 08/12/2008/12/2025 CBC W/DIF F absolute NRBCs 0.0 10'3/ uL no refere nce range establ ished Not Available [facility] (Lab) [address], [place], [address], 08/13/2025 18:23:07 08/12/20 25 08/12/2025 CBC W/DIF F neutrophils 70.7 % 34.0-7 3.0 Not Available [facility] (Lab) [address], [place], [address], 08/13/2025 18:23:07 08/12/20 25 08/12/2025 CBC W/DIF F lymphocytes 22.8 % 15.0-5 0.0 Not Available [facility] (Lab) [address], [place], [address], 08/13/2025 18:23:07 08/12/2008/12/2025 CBC W/DIF F monocytes 4.6 % 1.0-15 .0 Not Available [facility] (Lab) [address], [place], [address], 08/13/2025 18:23:07 08/12/20 25 08/12/2025 CBC W/DIF F eosinophils 1.3 % 0.0-8. 0 Not Available [facility] (Lab) [address], [place], [address], 08/13/2025 18:23:07 08/12/20 25 08/12/2025 CBC W/DIF F basophils 0.3 % 0.0-2. 0 Not Available [facility] (Lab) [address], [place], [address], 08/13/2025 18:23:07 08/12/2008/12/2025 CBC W/DIF F immature granulocytes 0.3 % no define d refere nce range Immat ure Granu locyt es (IG) repre sents autom ated enume ratio n of Metam yeloc ytes, Myelo cytes and Promy elocy karthikeyan when IG is < 5%. Blast s are not inclu ded in IG and repor andree separ ately if prese nt. Not Available [facility] (Lab) [address], [place], [address], 08/13/2025 18:23:07 08/12/2008/12/2025 CBC W/DIF F absolute neutrophils 4.5 10'3/ uL 1.5-8. 0 Not Available [facility] (Lab) [address] [place], [address], 08/13/2025 18:23:07 08/12/20 25 08/12/2025 CBC W/DIF F absolute lymphocytes 1.4 10'3/ uL 1.0-4. 0 Not Available [facility] (Lab) [address], [place], [address], 08/13/2025 18:23:07 08/12/20 25 08/12/2025 CBC W/DIF F absolute monocytes 0.3 10'3/ uL 0.2-1. 0 Not Available [facility] (Lab) [address], [place], [address], 08/13/2025 18:23:07 08/12/20 25 08/12/2025 CBC W/DIF F absolute eosinophils 0.1 10'3/ uL 0.0-0. 6 Not Available [facility] (Lab) [address], [place], [address], 08/13/2025 18:23:07 08/12/20 08/12/2025 CBC W/DIF F absolute basophils 0.0 10'3/ uL 0.0-0. 3 Not Available [facility] (Lab) [address], [place], [address], 08/13/2025 18:23:07 08/12/2008/12/2025 CBC W/DIF F absolute immature granulocytes 0.0 [...] duncan book. nm.or g/gen derx Not Available [facility] (Lab) [address], [place], [address], 08/13/2025 18:23:07 08/12/2008/12/2025 TYPE/ RH/SC REEN ABO/Rh type B POS Not Available [facility] (Lab) [address], [place], [address], 08/13/2025 18:23:08 08/12/2008/12/2025 TYPE/ RH/SC REEN antibody screen NEG Not Available [facility] (Lab) [address] [place], [address], 08/13/2025 18:23:08 08/12/2008/12/2025 TYPE/ RH/SC REEN exp date 2024 23:59 Not Available [facility] (Lab) [address] [place], [address], 08/13/2025 18:23:08 08/12/20 25 08/12/2025 TSH, REFLE X FREE T4 TSH 0.60 uIU/m L 0.30-5 .33 Not Available [facility] (Lab) [address] [place], [address], 08/13/2025 18:23:08 08/12/2008/12/2025 LEAD, BLOOD (ADUL T/PED IATRI C) lead, whole blood <1.0 mcg/d L <3.5 See Note 1 Eliecer sis was perfo rmed by Tanya Santana ed Plasm a Mass Spect romet ry (ICPM S) Note 1 This test was devel oped and its eliecer tical perfo rmanc e wale cteri stics have been deter mined by [employer]. It has not been clear ed or appro fabienne by the FDA. This assay has been valid ated pursu ant to the CLIA regul ation s and is used for clini mitchell purpo ses. Perfo rming Organ izati on Infor matio n: Site ID: CB Name: [employer]-Edil gasca Bobby Addre ss: [id number] [place] [address] Direc tor: Hodan Blanca s Not Available [facility] (Lab) [address] [place], [address], 08/13/2025 18:23:09 09/02/20 25 09/02/2025 TSH TSH 1.07 uIU/m L 0.30-5 .33 Not Available [facility] (Lab) [address] [place], [address], 09/03/2025 07:53:57 09/02/20 25 09/02/2025 T4 FREE T4, free 0.65 NG/dL 0.54-1 .24 This assay is susce ptibl e to inter feren ce from high level s of bioti n which may false ly eleva te resul ts. Annita e gaye late with clini mitchell findi ngs. Not Available [facility] (Lab) [address] [place], [address], 09/03/2025 07:53:58 09/30/20 25 09/30/2025 TSH TSH 0.97 uIU/m L 0.30-5 .33 Not Available [facility] (Lab) [address], [place], [address], 10/01/2025 11:38:44 09/30/20 25 09/30/2025 T4 FREE T4, free 0.69 NG/dL 0.54-1 .24 This assay is susce ptibl e to inter feren ce from high level s of bioti n which may false ly eleva te resul ts. Annita e gaye late with clini mitchell findi ngs. Not Available [facility] (Lab) [address], [place], [address], 10/01/2025 11:38:45 06/22/20 25 06/22/2025 US, obste tric, 1st trime ster No observ ation record ed. [email or web address] [address], [place], [address], 06/23/2025 22:56:23 07/13/20 25 07/13/2025 US, obste tric, nucha l trans lucen cy No observ ation record ed. [email or web address] [place] [address], [place], [address], 07/13/2025 17:52:32 07/13/20 25 07/13/2025 US, obste tric, nucha l trans lucen cy No observ ation record ed. [email or web address] [address], [place], [address], 07/14/2025 22:05:03 07/13/20 25 07/13/2025 US, kidne y No observ ation record ed. [email or web address] [address], [address], 07/20/2025 10:03:09 07/13/20 25 07/13/2025 US, maria isabel y No observ ation record ed. [email or web address] [address] [place] [id number] [facility] [address], [place], [address], 07/20/2025 11:57:17 09/02/2009/02/2025 US, obste tric, 2nd or 3rd trime ster No observ ation record ed. [facility] [address], [place], [address], 09/02/2025 16:59:55 09/02/2009/02/2025 US, obste tric, follo w-up No observ ation record ed. [email or web address] [address], [place], [address], 09/08/2025 09:56:57 10/31/2010/31/2025 non-s tress test No observ ation record ed. [address], [place], [address], 10/31/2025 17:13:55 Result Notes None recorded. Problems Name Problem SNOMED Code Status Onset Date Resolution Date Notes Provider Name and Address Organization Details Recorded Time Pyelonep hritis 27246743 Completed suppress ion allergic to macrobid will do keflex 500mg daily [facility] 4 14:25:48 Nausea and vomiting 39854385 [facility] 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 4 14:25:48 Mixed anxiety and depressi ve disorder 656508742 Completed zoloft 50mg increase to 100mg daily [facility] 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: [employer] servando: N Carterti ce ID: [id number] Antoine lable Time: 09:30:00 AM Ileana Childress jory, [facility] 18:05:[address] Concept Completed 201601/24/2021 Encntr for general adult medical exam w/o abnormal findings ;Recorde d Elsewher e: No Locat ion: [facility] N Carterti ce ID: 0001 Antoine lable Time: 10:00:00 AM Ileana Monroe [facility], [facility] 18:05:09 Blood leukocyt e number above referenc e range [id number] Completed 201801/24/2021 Elevated white blood cell count, unspecif ied;Theodore rded Elsewher e: No Locat ion: [facility]: [facility] N Carterti ce ID: 0001 Antoine lable Time: 01:45:00 PM Ileana Monroe jory, [facility] 18:05:08 Surveill ance of contrace ption Completed 201801/24/2021 Encounte r for surveill ance of contrace ptives, unspecif ied;Theodore rded Elsewher e: No Locat ion: [facility]: [facility]: N Carterti ce ID: 0001 Antoine lable Time: 08:15:00 AM Ileana Childress jory, [facility] 18:05:14 Surveill ance of vaginal hormone releasin g ring method of contrace ption Completed 201801/24/2021 Encounte r for surveill ance of vagnl ring;Pra ctice ID: 0001 Ileana Childress [facility], [facility] 18:05:17 Pregnanc y [id number] Completed 202009/21/2021 Brenda corley, [facility] 16:43:46 Pregnanc y 16642063 Completed 202212/22/2023 Brenda corley, [facility] 16:43:46 Pregnanc y 09183235 Active 2024 Brenda Lorraine corley, [facility] 16:43:45 Past pregnanc y history of gestatio nal hyperten nova 836912472 Active 2024 first pregnanc y bASA 81 mg daily plan bASA again Bren Cole CNM [address], [place], [address], [facility] 17:42:55 Anxiety 30631773 Active 2024 sertrali ne 100mg daily Bren Cole CNM [address], [place], [address], [facility] 17:43:56 History of kidney infectio n 004997432 Active 2024 plan keflex now and then daily Bren Cole CNM [address], [place], [address], [facility] 17:43:41 Problem Notes None recorded. Procedures Surgical History Date Name Laterality Status Provider Name and Address Organization Details Recorded Time 09/13/20 24 Date of Last Pap Smear completed Brenda Peters [facility] 06/22/2025 17:27:28 06/18/20 24 IUD Removal completed Bren Cole CNM [address], [place], [address], [facility] 06/18/2024 11:48:36 01/28/20 24 IUD Insertion completed Bren Cole CNM [address], [place], [address], [facility] 01/28/2024 17:31:59 11/27/19 23 IUD Removal completed Bren Cole CNM [address], [place], [address], [facility] 11/27/2022 19:44:02 10/19/20 21 IUD Insertion completed Bren Cole CNM [address], [place], [address], [facility] 10/19/2021 14:51:45 11/17/19 05 Oral surgery procedure completed Ileana Childress [facility] 06/04/2023 14:45:32 11/17/19 04 Tonsillectomy completed Ileana Childress [facility] 09/14/2020 16:00:06 Tonsillectomy completed Alyssia Wills [facility] 01/24/2025 09:25:00 Imaging Results None recorded. Procedure Notes None recorded. Medical Equipment None Reported. Allergies Allergen ID Allergen Name Allergen Category Reaction Reaction Severity Criticality Documentation Date Start Date Code Code System Note Provider Name and Address Organization Details Recorded Time 68798 nitrofura ntoin medicatio n hives moderate Not available 11/03/2020 7454 RxNorm Shirlene Call [facility] 1 16:56:42 83420 Macrobid medicatio n hives moderate Not available 01/24/2021 54196 1 [facility] 18:04:59 2536 coconut extract food,medi cation cough mild Not available 09/14/2020 93997 48 RxNorm Ileana Childress [facility] 0 16:00:31 2537 Medicinal product containin g nitrofura n derivativ e and acting as antibacte rial agent (product) medicatio n hives moderate Not available 09/14/2020 06003 2000 SNOMED Ileana Childress [facility] 0 16:00:50 34008 coconut allergeni c extract food,medi cation cough Not available Not available 09/30/20252016 93460 1 RxNorm Not Available [employer] - External Data Service - prod 5 03:13:32 03788 coconut oil food,medi cation cough Not available low 09/30/20252016 87474 39 RxNorm Not Available [employer] - External Data Service - prod 5 03:14:17 Medications [...] route. 06/18 completed mirena IUD insert lot [id number] Exp 03/2026 Not Available Not Available Not [...] injectio n that patient brought in lot [id number] Exp 03/2026 was given into left hip [...] Not Available Not Available Microgest in Fe 1.530 (28) 1.5 mg-30 mcg (21)/75 mg (7) tablet take 1 tablet by oral route every day 10/13 completed Prescrib ed Elsewher e: Yes [facility]: vernon loganuntsheila DateTime : 09/18/20 15 11:30:00 AM Not Available Not Available Not Available Adult Low Dose Aspirin 81 mg tablet 81 mg every day by oral route. 01/24 completed Not Available Not Available Not Available NuvaRing 0.12 mg-0.015 mg/24 hr vaginal Insert 1 vaginal ring every month by vaginal route. 10/30 completed Not Available Not Available Not Available 12/06 (21) 1 mg-20 mcg tablet take 1 tablet by oral route every day 10/13 completed Prescrib ed Elsewher e: Yes Loca tion: Sylvester pollock [facility] [place] odify By: kathy ratliff Encou nter DateTime : 10/13/20 17 10:00:00 AM Not Available Not Available Not Available 12/06 (28) 1 mg-20 mcg (21)/75 mg (7) tablet take 1 tablet by oral route every day 11/02 completed Prescrib ed Elsewher e: No Locat ion: [facility] odify By: majo abreu DateTime : 10/29/20 [...] and Address Organization Details Last Updated DateTime 09/30/2025 64228.41204 g 118/72 mm[Hg] Alla Rodriguez [facility] 09/30/2025 17:00:17 Social History Question Answer Notes LastModified by Organizat ion Details LastModified Time Tobacco Smoking Status Never Smoker Isabel corley, [facility] 12/10/2023 13:54:52 Do You Have An Advance Directive? No [email or web address] Information n ot available 01/24/2021 If You Are , What Was Your Level Of Alcohol Consumption Prior To ? None [email or web address] Information not available 12/10/2023 How Many Years Have You Consumed Alcohol? 9 Information not available 08/26/2024 Are You Blind Or Do You Have Difficulty Seeing? No [email or web address] Information n ot available 01/24/2021 What Is Your Level Of Caffeine Consumption? Occasional aseger1 Information not available 03/22/2021 How Much Tobacco Do You Chew? None [email or web address] Information not available 01/24/2021 In The 14 Days Before Symptom Onset, Have You Had Close Contact With A Laboratory-confirm ed COVID-19 While That Case Was Ill? No [email or web address] Information n ot available 01/24/2021 In The 14 Days Before Symptom Onset, Have You Had Close Contact With A Person Who Is Under Investigation For COVID-19 While That Person Was Ill? No [email or web address] Information not available 01/24/2021 Have You Been To An Area Known To Be High Risk For COVID-19? No [email or web address] Information not available 01/24/2021 Are You Deaf Or Do You Have Serious Difficulty Hearing? No [email or web address] Information not available 01/24/2021 What Type Of Diet Are You Following? REGULAR [email or web address] Information n ot available 01/24/2021 What Is The Highest Grade Or Level Of School You Have Completed Or The Highest Degree You Have Received? [id number] [email or web address] Information not available 01/24/2021 Are There Any Guns Present In Your Home? No [email or web address] Information not available 01/24/2021 What Was The Date Of Your Most Recent Tobacco Screening? 01/28/2024 [email or web address] Information not available 01/28/2024 Do You Use Protection During Sex? No [email or web address] Information not available 01/24/2021 Do You Use Your Seat Belt Or Car Seat Routinely? Yes [email or web address] Information not available 01/24/2021 Are You Sexually Active? Yes [email or web address] Information not available 06/22/2025 Do You Have Smoke And Carbon Monoxide Detectors In Your Home? Yes [email or web address] Information not available 01/24/2021 How Much Tobacco Do You Smoke? No [email or web address] Information not available 09/15/2020 Do You Use Sunscreen Routinely? No [email or web address] Information not available 01/24/2021 Has Tobacco Cessation Counseling Been Provided? No [email or web address] Information not available 12/10/2023 How Many Years Have You Smoked Tobacco? 0 [email or web address] Information not available 09/03/2023 Have You Used IV Drugs? No [email or web address] Information not available 01/24/2021 Do You Have Difficulty Walking Or Climbing Stairs? No [email or web address] Information not available 12/10/2023 Sex: Unknown Functional Status Question Answer Note LastModified by Organizat ion Details LastModified Time Do you use any illicit or recreational drugs? No [email or web address] Information not available 01/24/2021 Do you or have you ever used any other forms of tobacco or nicotine? No [email or web address] Information not available 12/10/2023 What is your level of alcohol consumption? None [email or web address] Information not available 09/13/2024 Do you or have you ever used smokeless tobacco? Never used smokeless tobacco [email or web address] Information not available 12/10/2023 Are you currently employed? Yes ephokz70 Information not available 06/22/2025 Are you able to walk independently without assistance or assistive devices? YESWOREST [email or web address] Information not available 01/24/2021 Are you able to care for yourself independently? 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 No [email or web address] Information not available 12/10/2023 Do you or have you ever used e-cigarettes or vape? Never used electronic cigarettes [email or web address] Information not available 12/10/2023 What is your exercise level? Occasional [email or web address] Information not available 09/15/2020 Mental Status Question Answer Note LastModified by Organization D etails LastModified Time Do you feel stressed (tense, restless, nervous, or anxious, or unable to sleep at night)? [id number] Information not available 07/02/2023 Family History Relationship Description Onset Age of this Age Resolved Age Notes LastModified by Organization Details LastModified Time Mother Cyst of ovary [email or web address] Not available 2024 10:59:33 Mother Endometritis Not avail able 11/07/2025 10:59:33 Mother Uterine adenomyosis [email or web address] Not available 10/18 10:59:33 Mother Hypertensive disorder [email or web address] Not available 2024 16:39:17 Mother Hypertensive disorder Not available 2024 10:59:33 Paternal Grandfather Malignant neoplasm of prostate [email or web address] Not available 2024 10:59:33 Medical History Condition [...] mcg/0.3 mL dose 10/30/2021 completed Ileana corley, [facility] 05/07/2023 11:42:10 Influenza, MDCK, quadrivalent, PF 08/14/2023 completed Alyssia corley [facility] 08/26/2024 11:31:51 COVID-19, mRNA, LNP-S, PF, jono-sucrose, 30 mcg/0.3 mL 08/14/2023 completed Alyssia corley [facility] 08/26/2024 11:31:51 Past Encounters Encounter ID Performer Location Encounter Start Date Encounter Closed Date Diagnosis/Indication Diagnosis SNOMED-CT Code Diagnosis ICD10 Code Diagnosis IMO Codes Diagnosis Note [id number] Sloan Bañuelos MD [facility] [address],[place] [address] 09/02/2025 14:26:20 09/02/2025 15:29:07 Screening status 529625908 Z36.3 Z3A.20 [id number] Bren Cole CNM [facility] [address],[place] [address] 09/02/2025 14:26:36 09/02/2025 15:47:28 Gestation period, 20 weeks [id number] Z3A.20 [id number] Bren Cole CNM [facility] [address],[place] [address] 09/30/2025 16:49:30 10/03/2025 08:55:10 Gestation period, 23 weeks 56000850 Z3A.23 [id number] Health Concerns Section Related Observation LastModified by Organization Detai ls LastModified Time None Recorded Concern Status LastModified by Organization Details LastModified Time None Recorded Payers Encounter Date Sequence Insurance Name Policy Number Policy Lamas Covered Member ID Lamas Member ID Guarantor Name 09/30/2025 1 [facility] [id number] Herbert Martin [id number] Ivan Martin Notes Date Note Type Note Provider Name and Address Organization Details Recorded Time 09/30/2025 text/html Generic HPI TemplateReported by Patient Bren Cole CNM [address], [place], [address], [facility] 10/02/2025 17:44:56 OBGyn Episode Ob Episode Information Episode Created Date Number of Fetuses Patient Bloodtype Patient rh Status Prepregnancy Weight lbs Domestic Partner Domestic Partner Phone Father Name Personnel Recruiter Status 06/22/20 25 1 B Positive 150 Herbert OPEN Fetus Data First Name Last Name Admitted to NICU Weight (g) Sex Living Outcome Pediatric Complications Fetus ID Race Codes Race Delivery Type [id number] Problems Problem Notes TSH low rpt [id number] growth us Problem Name Start Date End Date Resolution Snomed Code Not e Past history of gestational hypertension 06/22/2025 [id number] first bASA 81 mg daily plan bASA again History of kidney infection 07/13/2025 [id number] plan keflex now and then daily Anxiety 06/22/2025 75144931 sertralin e 100mg daily Rober Calculation Initial Rober Date Initial Exam Date [...] Weight in lbs Pre/Post Dialysis Refused Weight 148.652472449456 BP Diastolic BP Location Tested BP Systolic [...] Weight in lbs Pre/Post Dialysis Refused Weight 147.437260205976 BP Diastolic BP Location Tested BP Systolic [...] Weight in lbs Pre/Post Dialysis Refused Weight 148.372312272017 BP Diastolic BP Location Tested BP Systolic [...] Type Weight in lbs Pre/Post Dialysis Refused 152.567575684057 BP Diastolic BP Location Tested BP Systolic [...] Type Weight in lbs Pre/Post Dialysis Refused 158.448748624209 BP Diastolic BP Location Tested BP Systolic [...] Weight in lbs Pre/Post Dialysis Refused Weight 167.239831841412 BP Diastolic BP Location Tested BP Systolic [...] Weight in lbs Pre/Post Dialysis Refused Weight 168.835764212790 BP Diastolic BP Location Tested BP Systolic [...]
--- OUTSIDE RECORDS SUMMARY | 2025-11-13 16:55 | XMS_ITS | Clinical Summary ---
Author Organization [facility] Address [address] [place] [address] Phone Care Team Providers Care Exhibit Builder Name Role Phone Kevin Clark MD Primary Care Provider Allergies Active Allergy Reactions Criticality Noted Date Comments Coconut Cough Low 05/04/2025 Coconut Oil Cough Low 10/13/2017 Nitrofuran Analogues Hives Medium 05/04/2025 Nitrofurantoin Hives,Urticaria Medium 10/29/2018 Medications sertraline (ZOLOFT) 100 mg tablet Take 1 tablet (100 mg total) by mouth daily Active vit 99-cbti-zqufl-dh a 27mg iron- 800 mcg-250 mg capsule [...] blood cell count, unspecified;Recorded Elsewhere: No Location: [facility] Source: EHR Chronic: N Practice ID: [id number] Billable Time: 01:45:00 PM Social History Tobacco Use Types Packs/Day Years [...] on file Legal 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 Gender Identity Not on file Sexual Orientation [...] Vaccines (1 - 3-dose SCDM series) 2020 Covid-19 Vaccine ( season) 2025 08/19/2024, 08/14/2023, 10/30/2021, Additional history exists Influenza Vaccine (#1) 2025 , 08/14/2023, 08/28/2022, Additional history exists DTaP/Tdap/Td Vaccine (3 - Td or Tdap) 11/05/2033 11/05/2023, 07/12/2021 Pneumococcal vaccine <65 Aged Out No longer eligible based on patient's age to complete this topic Insurance [facility] [employer] Care Teams Exhibit Builder Relationship Specialty Start Date End Date Kevin Clark MD [address] [facility] [address] [place] [address] PCP - General Family Medicine 05/04/25
--- OUTSIDE RECORDS SUMMARY | 2025-11-13 16:55 | XMS_ITS | Clinical Summary ---
Author Organization [facility] Address [address] [place] [address] Care Team Providers Care Manager [employer] Name Role Phone Kevin Clark MD Primary Care Provider [phone] Mark Alfonso MD Unavailable Source Comments [facility],non-owned Affiliates and Associated Physician Practices is amultiple site organization consisting of ambulatory clinics and hospital sitesin [place], [place], [place] and [place]. This disclosure is being madepursuant to the Care Everywhere program and may not contain all information available regarding this patient. 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 Gender Identity Not on file Sexual Orientation Not on file Last Filed Vital Signs Vital Sign Reading Time Taken Comments Blood Pressure 124/70 11/16/2018 12:40 PM LANDING WORKER Pulse 72 11/16/2018 12:40 PM LANDING WORKER Temperature 36.7 C (98.1 F) 11/16/2018 12:40 PM LANDING WORKER Respiratory Rate 16 11/16/2018 12:40 PM LANDING WORKER Oxygen Saturation 97% 11/16/2018 12:40 PM LANDING WORKER Inhaled Oxygen Concentration - - Weight 63.5 kg (140 lb) 11/16/2018 12:40 PM LANDING WORKER Height 165.1 cm (5' 5) 11/16/2018 12:40 PM LANDING WORKER Body Mass Index 23.3 11/16/2018 12:40 PM LANDING WORKER Plan of Treatment Health Maintenance Due Date Last Done Comments HIV SCREENING 2008 HEPATITIS C SCREENING 08/13/2011 DTAP/TDAP/TD VACCINES (1 - Tdap) 2012 HEPATITIS B VACCINE (1 of 3 - 19+ 3-dose series) 2012 HPV VACCINE (1 - 3-dose SCDM series) 2020 DEPRESSION SCREENING 11/17/2024 COVID-19 VACCINE (1 - 2024-2 6 season) 2025 INFLUENZA VACCINE (#1) 2025 ZOSTER VACCINE (1 [...] age to [place] [id number] [facility] MANAGED MEDICARE ADV Care Teams Manager Army Relationship Specialty Start Date End Date Kevin Clark MD [address] [place] [address] PCP - General 09/10/21 Mark Alfonso MD [facility] [place] [address] Family Medicine 09/10/21
--- OUTSIDE RECORDS SUMMARY | 2025-11-13 16:56 | XMS_ITS | Continuity of Care Document ---
Author Organization [facility] Address [address] [place] [address] Care Team Providers Care Hospitalist Program Director Name Role Phone KATHRINE AMBROSIO Primary Care Provider Assessment Encounter Date Assessment Date Assessment LastModified by Organization Details LastModified Time 09/02/2025 09/02/2025 Patient is _20__weeks . Discussed plan. Not available 09/02/2025 15:46:26 Plan of Treatment Reminders Order Date Submit [...] Not Available Tony moncada [address], [place], [address], 07/19/2025 23:48:31 07/19/2007/19/2025 [UNIT Y] ANEUP LOIDY NIPT 22Q11.2 microdeletio n LOW RISK <1 in 10,000 normal Not Available [facility] [address], [place], [address], 07/19/2025 23:48:31 07/19/20 25 07/19/2025 [UNIT Y] ANEUP LOIDY NIPT sex chromosome aneuploidy NOT DETECT ED normal Not Available [facility] [address], [place], [address], 07/19/2025 23:48:31 07/19/20 25 07/19/2025 [UNIT Y] ANEUP LOIDY NIPT monosomy X LOW RISK <1 in 10,000 normal Not Available [facility] [address], [place], [address], 07/19/2025 23:48:31 07/19/20 25 07/19/2025 [UNIT Y] ANEUP LOIDY NIPT trisomy 13 LOW RISK <1 in 10,000 normal Not Available [facility] [address], [place], [address], 07/19/2025 23:48:31 07/19/20 25 07/19/2025 [UNIT Y] ANEUP LOIDY NIPT trisomy 18 LOW RISK <1 in 10,000 normal Not Available [facility] [address], [place], [address], 07/19/2025 23:48:31 07/19/20 25 07/19/2025 [UNIT Y] ANEUP LOIDY NIPT trisomy 21 LOW RISK <1 in 10,000 normal Not Available [facility] [address], [place], [address], 07/19/2025 23:48:31 07/19/20 25 07/19/2025 [UNIT Y] ANEUP LOIDY NIPT sex MALE normal Not Available [facility] [address], [place], [address], 07/19/2025 23:48:31 07/19/20 25 07/19/2025 [UNIT Y] ANEUP LOIDY NIPT gestation SINGLE TON normal Not Available [facility] [address], [place], [address], 07/19/2025 23:48:31 07/19/20 25 07/19/2025 [UNIT Y] ANEUP LOIDY NIPT for detailed report, see pdf See PDF normal Not Available [facility] [address], [place], [address], 07/19/2025 23:48:31 06/22/20 25 06/22/2025 CT/GC AND TRICH OMONA S VAGIN ENMANUEL (RRNA ), URINE chlamydia trachomatis, PCR Negati ve negati ve Not Available [facility] (Lab) [address] [facility], [place], [address], 06/23/2025 22:37:02 06/22/20 25 06/22/2025 CT/GC AND TRICH OMONA S VAGIN ENMANUEL (RRNA ), URINE neisseria gonorrhoeae, PCR Negati ve negati ve Not Available [facility] (Lab) [address] [facility], [place], [address], 06/23/2025 22:37:02 06/22/20 25 06/22/2025 CT/GC AND TRICH OMONA S VAGIN ENMANUEL (RRNA ), URINE trichomonas vaginalis ribosomal RNA (rrna) Negati ve negati ve Not Available [facility] (Lab) [address] [facility], [place], [address], 06/23/2025 22:37:02 06/22/20 25 06/22/2025 CULTU RE: URINE result report SEE RESULT S BELOW Test: Cultu re: Urine Speci men Sourc e: Urine Voide d Speci men Type: Urine Speci men Date: 1546 Resul t Date: 8/7/2 025 2133 Resul t Statu s: Final resul t Abnor mal: No Resul ting Lab: [facility] [address] [facility] [address] Tel: CULTU RE ----- ----- ----- --- No growt h in 1 day (dete ction level of 10,00 0 colon ies / ml.) Not Available [facility] (Lab) [address] [facility], [place], [address], 06/23/2025 22:37:03 07/13/2007/13/2025 CBC W/DIF F CBC and differential CANCEL LED Clott ed Speci men Not Available [facility] (Lab) [address] [place], [address], 07/14/2025 05:30:34 07/13/2007/13/2025 HEPAT ITIS B SURFA CE ANTIG EN hepatitis B surface antigen Non-re active non-re active This assay was perfo rmed using [employer] ratio n reage nts and test kits. Value s obtai kimmy with other assay metho ds or kits canno t be used inter rondon eably . Not Available [facility] (Lab) [address] [facility], [place], [address], 07/14/2025 14:35:42 07/13/2007/13/2025 HIV 1/2 ANTIG EN/AN TIBOD Y, REFLE X CONFI RMATI ON HIV antigen/anti body Nonrea ctive nonrea ctive HIV-1 antig en and HIV-1 /HIV- 2 antib odies were not detec andree. No labor atory evide nce of HIV infec tion. Not Available [facility] (Lab) [address] [place], [address], 07/14/2025 14:35:42 07/13/2007/13/2025 HEPAT ITIS C ANTIB TANYA SCREE N, REFLE X TO CONFI RMATI ON hepatitis C antibody Non-re active non-re active Antib odies to HCV Not Detec andree, does not exclu de the possi bilit y of expos ure to HCV. Not Available [facility] (Lab) [address] [facility], [place], [address], 07/14/2025 14:35:43 07/13/20 25 07/13/2025 T4 FREE T4, free 0.77 NG/dL 0.54-1 .24 This assay is susce ptibl e to inter feren ce from high level s of bioti n which may false ly eleva te resul ts. Pleas e corre late with clini mitchell findi ngs. Not Available [facility] (Lab) [address] [facility], [place], [address], 07/14/2025 14:35:43 07/13/20 25 07/13/2025 TSH, REFLE X FREE T4 TSH 0.27 uIU/m L 0.30-5 .33 low Not Available [facility] (Lab) [address] [facility], [place], [address], 07/14/2025 14:35:44 07/13/20 25 07/13/2025 RUBEL LA IGG ANTIB TANYA, QUANT rubella antibodies, IgG Reacti ve reacti ve Not Available [facility] (Lab) [address] [facility], [place], [address], 07/14/2025 14:35:44 07/13/20 25 07/13/2025 RUBEL LA IGG ANTIB TANYA, QUANT rubella antibodies, IgG quant 11.3 IU/mL >=10 Non-r eacti ve (Non- Immun e) <10 IU/mL React neno (Immu ne) > or = 10 IU/mL Not Available [facility] (Lab) [address] [facility], [place], [address], 07/14/2025 14:35:44 07/13/20 25 07/13/2025 RPR SCREE N, REFLE X TITER /CONF IRMAT ION RPR qualitative Nonrea ctive nonrea ctive Not Available [facility] (Lab) [address] [facility], [place], [address], 07/14/2025 14:35:44 07/13/2007/13/2025 HEMOG LOBIN A1C hemoglobin [...] >8.0% Actio n sugge sted Not Available [facility] (Lab) [address] [facility], [place], [address], 07/14/2025 14:35:45 07/13/2007/13/2025 CULTU RE: URINE result report SEE RESULT S BELOW abnormal Test: Cultu re: Urine Speci men Sourc e: Urine Voide d Speci men Type: Urine Speci men Date: 2024 1730 Resul t Date: 2024 0806 Resul t Statu s: Final resul t Luciaor mal: Yes Farnaz mccann Lab: [facility] [address] [facility] [address] Tel: CULTU RE ----- ----- ----- --- >100, 000 CFU/m l Esche delmi a coli (Abno rmal) SUSCE PTIBI LITY ----- ----- ----- --- Esche [...] <=0.5 ug/mL Susce ptibl e Not Available [facility] (Lab) [address], [place], [address], 07/16/2025 09:10:22 07/13/20 25 07/13/2025 urina lysis , dipst ick Leukocytes +++ Not Available [facility] stephanie [address], [place], [address], 07/13/2025 18:18:08 07/13/20 25 07/13/2025 urina lysis , dipst ick Nitrite ++ Not Available [facility] [address], [place], [address], 07/13/2025 18:18:08 07/13/20 25 07/13/2025 urina lysis , dipst ick Blood +++ Not Available [facility] [address], [place], [address], 07/13/2025 18:18:08 07/13/20 25 07/13/2025 drug scree n, urine Amphetamines : negati ve Not Available [facility] [address], [place], [address], 07/13/2025 18:16:25 07/13/20 25 07/13/2025 drug scree n, urine Cannabinoids : positi ve Not Available [facility] [address], [place], [address], 07/13/2025 18:16:25 07/13/20 25 07/13/2025 drug scree n, urine Cocaine: negati ve Not Available [facility] [address], [place], [address], 07/13/2025 18:16:25 07/13/20 25 07/13/2025 drug scree n, urine Opiates: negati ve Not Available [facility] [address], [place], [address], 07/13/2025 18:16:25 07/13/20 25 07/13/2025 drug scree n, urine Phenocyclidi ne: negati ve Not Available [facility] [address], [place], [address], 07/13/2025 18:16:25 07/13/20 25 07/13/2025 drug scree n, urine Barbiturates : negati ve Not Available [facility] [address], [place], [address], 07/13/2025 18:16:25 07/13/20 25 07/13/2025 drug scree n, urine Benzodiazepi jorge: negati ve Not Available [facility] [address], [place], [address], 07/13/2025 18:16:25 07/13/20 25 07/13/2025 drug scree n, urine Ethanol: negati ve Not Available [facility] [address], [place], [address], 07/13/2025 18:16:25 07/13/20 25 07/13/2025 drug scree n, urine Hallucinogen s: negati ve Not Available [facility] [address], [place], [address], 07/13/2025 18:16:25 07/13/20 25 07/13/2025 drug scree n, urine Inhalants: negati ve Not Available [facility] [address], [place], [address], 07/13/2025 18:16:25 07/13/20 25 07/13/2025 drug scree n, urine Anabolic Steroids: negati ve Not Available [facility] [address], [place], [address], 07/13/2025 18:16:25 08/12/20 25 08/12/2025 CBC W/DIF F WBC 6.3 10'3/ uL 3.5-10 .5 Not Available [facility] (Lab) [address], [place], [address], 08/13/2025 18:23:07 08/12/20 25 08/12/2025 CBC W/DIF F RBC 3.98 10'6/ uL (based on docume nted legal sex) 3.80-5 .20 Not Available [facility] (Lab) [address], [place], [address], 08/13/2025 18:23:07 08/12/20 25 08/12/2025 CBC W/DIF F HGB 11.5 g/dL (based on docume nted legal sex) 11.6-1 5.4 low Not Available [facility] (Lab) [address], [place], [address], 08/13/2025 18:23:07 09/26/20 25 08/12/2025 CBC W/DIF F HCT 36.9 % (based on docume nted legal sex) 34.0-4 5.0 Not Available [facility] (Lab) [address], [place], [address], 08/13/2025 18:23:07 08/12/2008/12/2025 CBC W/DIF F MCV 92.7 fL 80.0-9 9.0 Not Available [facility] (Lab) [address], [place], [address], 08/13/2025 18:23:07 08/12/2008/12/2025 CBC W/DIF F MCH 28.9 pg 27.0-3 4.0 Not Available [facility] (Lab) [address], [place], [address], 08/13/2025 18:23:07 08/12/20 25 08/12/2025 CBC W/DIF F MCHC 31.2 g/dL 32.0-3 5.5 low Not Available [facility] (Lab) [address], [place], [address], 08/13/2025 18:23:07 08/12/2008/12/2025 CBC W/DIF F RDW 13.8 % 11.0-1 5.0 Not Available [facility] (Lab) [address], [place], [address], 08/13/2025 18:23:07 08/12/20 25 08/12/2025 CBC W/DIF F plt 241 10'3/ uL 150-40 0 Not Available [facility] (Lab) [address], [place], [address], 08/13/2025 18:23:07 08/12/20 25 08/12/2025 CBC W/DIF F MPV 10.0 fL 8.8-12 .1 Not Available [facility] (Lab) [address], [place], [address], 08/13/2025 18:23:07 08/12/20 25 08/12/2025 CBC W/DIF F NRBC's 0.0 % 0.0 Not Available [facility] (Lab) [address] [facility], [place], [address], 08/13/2025 18:23:07 08/12/20 25 08/12/2025 CBC W/DIF F absolute NRBCs 0.0 10'3/ uL no refere nce range establ ished Not Available [facility] (Lab) [address] [facility], [place], [address], 08/13/2025 18:23:07 08/12/20 25 08/12/2025 CBC W/DIF F neutrophils 70.7 % 34.0-7 3.0 Not Available [facility] (Lab) [address] [facility], [place], [address], 08/13/2025 18:23:07 08/12/20 25 08/12/2025 CBC W/DIF F lymphocytes 22.8 % 15.0-5 0.0 Not Available [facility] (Lab) [address] [facility], [place], [address], 08/13/2025 18:23:07 08/12/20 25 08/12/2025 CBC W/DIF F monocytes 4.6 % 1.0-15 .0 Not Available [facility] (Lab) [address] [facility], [place], [address], 08/13/2025 18:23:07 08/12/20 25 08/12/2025 CBC W/DIF F eosinophils 1.3 % 0.0-8. 0 Not Available [facility] (Lab) [address] [facility], [place], [address], 08/13/2025 18:23:07 08/12/20 25 08/12/2025 CBC W/DIF F basophils 0.3 % 0.0-2. 0 Not Available [facility] (Lab) [address], [place], [address], 08/13/2025 18:23:07 08/12/2008/12/2025 CBC W/DIF F immature granulocytes 0.3 % no define d refere nce range Immat ure Granu locyt es (IG) repre sents autom ated enume ratio n of Metam yeloc ytes, Myelo cytes and Promy elocy karthikeyan when IG is < 5%. Blast s are not inclu ded in IG and repor andree separ ately if prese nt. Not Available [facility] (Lab) [address] , [place], [address], 08/13/2025 18:23:07 08/12/2008/12/2025 CBC W/DIF F absolute neutrophils 4.5 10'3/ uL 1.5-8. 0 Not Available [facility] (Lab) [address] , [place], [address], 08/13/2025 18:23:07 08/12/20 25 08/12/2025 CBC W/DIF F absolute lymphocytes 1.4 10'3/ uL 1.0-4. 0 Not Available [facility] (Lab) [address], [place], [address], 08/13/2025 18:23:07 08/12/20 25 08/12/2025 CBC W/DIF F absolute monocytes 0.3 10'3/ uL 0.2-1. 0 Not Available [facility] (Lab) [address] , [place], [address], 08/13/2025 18:23:07 08/12/2008/12/2025 CBC W/DIF F absolute eosinophils 0.1 10'3/ uL 0.0-0. 6 Not Available [facility] (Lab) [address], [place], [address], 08/13/2025 18:23:07 08/12/20 25 08/12/2025 CBC W/DIF F absolute basophils 0.0 10'3/ uL 0.0-0. 3 Not Available [facility] (Lab) [address], [place], [address], 08/13/2025 18:23:07 08/12/20 25 08/12/2025 CBC W/DIF [...] duncan book. nm.or g/gen derx Not Available [facility] (Lab) [address], [place], [address], 08/13/2025 18:23:07 08/12/2008/12/2025 TYPE/ RH/SC REEN ABO/Rh type B POS Not Available [facility] (Lab) [address], [place], [address], 08/13/2025 18:23:08 08/12/2008/12/2025 TYPE/ RH/SC REEN antibody screen NEG Not Available [facility] (Lab) [address] [place], [address], 08/13/2025 18:23:08 08/12/2008/12/2025 TYPE/ RH/SC REEN exp date 2024 23:59 Not Available [facility] (Lab) [address] [place], [address], 08/13/2025 18:23:08 08/12/2008/12/2025 TSH, REFLE X FREE T4 TSH 0.60 uIU/m L 0.30-5 .33 Not Available [facility] (Lab) [address] [place], [address], 08/13/2025 18:23:08 08/12/2008/12/2025 LEAD, BLOOD (ADUL T/PED IATRI C) lead, whole blood <1.0 mcg/d L <3.5 See Note 1 Eliecer sis was perfo rmed by Tanya Santana ed Plasm a Mass Spect romet ry (ICPM S) Note 1 This test was devel oped and its eliecer tical perfo rmanc e wale cteri stics have been deter mined by [employer] [facility]. It has not been clear ed or appro fabienne by the FDA. This assay has been valid ated pursu ant to the CLIA regul ation s and is used for clini mitchell purpo ses. Perfo rming Organ izati on Infor matio n: Site ID: CB Name: [employer] [facility]-Edil Rosales Addre ss: [address] [place] [address] Direc tor: Hodan Blanca s Not Available [facility] (Lab) [address] [facility], [place], [address], 08/13/2025 18:23:09 09/02/2009/02/2025 TSH TSH 1.07 uIU/m L 0.30-5 .33 Not Available [facility] (Lab) [address] [place], [address], 09/03/2025 07:53:57 09/02/20 25 09/02/2025 T4 FREE T4, free 0.65 NG/dL 0.54-1 .24 This assay is susce ptibl e to inter feren ce from high level s of bioti n which may false ly eleva te resul ts. Plejimmie e gaye late with clini mitchell findi ngs. Not Available [facility] (Lab) [address] [facility], [place], [address], 09/03/2025 07:53:58 06/22/20 25 06/22/2025 US, obste tric, 1st trime ster No observ ation record ed. [email or web address] [address], [place], [address], 06/23/2025 22:56:23 07/13/20 25 07/13/2025 US, obste tric, nucha l trans lucen cy No observ ation record ed. [email or web address] [place] [address], [place], [address], 07/13/2025 17:52:32 07/13/20 25 07/13/2025 US, obste tric, nucha l trans lucen cy No observ ation record ed. [email or web address] [address], [place], [address], 07/14/2025 22:05:03 07/13/20 25 07/13/2025 US, kidne y No observ ation record ed. [email or web address] [address], [place], [address], 07/20/2025 10:03:09 07/13/20 25 07/13/2025 US, kidne y No observ ation record ed. [address] [address], [place], [address], 07/20/2025 11:57:17 09/02/2009/02/2025 US, belinda greene, 2nd or 3rd trime ster No observ ation record ed. [email or web address] [place] [address], [place], [address], 09/02/2025 16:59:55 09/02/2009/02/2025 US, belinda greene, follo w-up No observ ation record ed. [email or web address] [address], [place], [address], 09/08/2025 09:56:57 10/31/20 25 10/31/2025 non-s tress test No observ ation record ed. [email or web address] [facility] [address], [place], [address], 10/31/2025 17:13:55 Result Notes None recorded. Problems Name Problem SNOMED Code Status Onset Date Resolution Date Notes Provider Name and Address Organization Details Recorded Time Pyelonep hritis 12133533 Completed suppress ion allergic to macrobid will do keflex 500mg daily [facility] 4 14:25:48 Nausea and vomiting 88579747 Completed zofran [facility] 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 4 14:25:48 Mixed anxiety and depressi ve disorder 491816207 Completed zoloft 50mg increase to 100mg daily [facility] 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 S ource: EHR Accounts Manager servando: N Fide ce ID: [id number] Antoine lable Time: 09:30:00 AM Ileana Childress [facility] 1 18:05:[address] Concept Completed 201601/24/2021 Encntr for general adult medical exam w/o abnormal findings ;Recorde d Elsewher e: No Locat ion: [facility] S ource: EHR Accounts Manager servando: N Practi ce ID: [id number] Antoine lable Time: 10:00:00 AM Ileana Childress [facility] 1 18:05:09 Blood leukocyt e number above referenc e range [id number] Completed 201801/24/2021 Elevated white blood cell count, unspecif ied;Theodore rded Elsewher e: No Locat ion: [facility] S ource: EHR Accounts Manager servando: N Carterti ce ID: [id number] Antoine lable Time: 01:45:00 PM Ileana Childress jory, [facility] 18:05:08 Surveill ance of contrace ption Completed 201801/24/2021 Encounte r for surveill ance of contrace ptives, unspecif ied;Theodore rded Elsewher e: No Locat ion: [facility] S ource: EHR Accounts Manager servando: N Carterti ce ID: [id number] Antoine lable Time: 08:15:00 AM Ileana Pritchettgaudencio corley, [facility] 18:05:14 Surveill ance of vaginal hormone releasin g ring method of contrace ption Completed 201801/24/2021 Encounte r for surveill ance of vagnl ring;Pra ctice ID: [id number] Ileana Pritchetttz [facility], [facility] 18:05:17 Pregnanc y 09151044 Completed 202009/21/2021 Brenda corley, [facility] 5 16:43:46 Pregnanc y 03848503 Completed 202212/22/2023 Brenda corley, [facility] 5 16:43:46 Pregnanc y 67006957 Active 2024 Brenda corley, [facility] 5 16:43:45 Past pregnanc y history of gestatio nal hyperten nova 227903733 Active 2024 first pregnanc y bASA 81 mg daily plan bASA again Bren Cole, [address], [place], [address], [facility] 17:42:55 Anxiety 38634100 Active 2024 sertrali ne 100mg daily [address], [place], [address], [facility] 17:43:56 History of kidney infectio n 535885966 Active 2024 plan keflex now and then daily Bren Cole CNM [address], [place], [address], [facility] 17:43:41 Problem Notes None recorded. Procedures Surgical History Date Name Laterality Status Provider Name and Address Organization Details Recorded Time 09/13/20 24 Date of Last Pap Smear completed Brenda Peters [facility] 06/22/2025 17:27:28 06/18/20 24 IUD Removal completed Bren Cole CNM [address], [place], [address], [facility] 06/18/2024 11:48:36 01/28/20 24 IUD Insertion completed [address], [place], [address], [facility] 01/28/2024 17:31:59 11/27/19 23 IUD Removal completed [address], [place], [address], [facility] 11/27/2022 19:44:02 10/19/20 21 IUD Insertion completed [address], [place], [address], [facility] 10/19/2021 14:51:45 11/17/19 05 Oral surgery procedure completed Ileana Childress [facility] 06/04/2023 14:45:32 11/17/19 04 Tonsillectomy completed Ileana Childress [facility] 09/14/2020 16:00:06 Tonsillectomy completed Alyssia Wills [facility] 01/24/2025 09:25:00 Imaging Results None recorded. Procedure Notes None recorded. Medical Equipment None Reported. Allergies Allergen ID Allergen Name Allergen Category Reaction Reaction Severity Criticality Documentation Date Start Date Code Code System Note Provider Name and Address Organization Details Recorded Time 25418 nitrofura ntoin medicatio n hives moderate Not available 11/03/2020 7454 RxNorm Shirlene Call jory [facility] 1 16:56:42 46325 Macrobid medicatio n hives moderate Not available 01/24/2021 79138 1 RxNorm Ileana corley [facility] 1 18:04:59 2536 coconut extract food,medi cation cough mild Not available 09/14/2020 87011 48 RxNorm Ileana Childress [facility] 0 16:00:31 2537 Medicinal product containin g nitrofura n derivativ e and acting as antibacte rial agent (product) medicatio n hives moderate Not available 09/14/2020 [id number] 2000 SNOMED Ileana corley [facility] 0 16:00:50 60154 coconut allergeni c extract food,medi cation cough Not available Not available 09/30/20252016 15205 1 RxNorm Not Available [employer] - prod 5 03:13:32 77302 coconut oil food,medi cation cough Not available low 09/30/20252016 09115 39 RxNorm Not Available [employer] - prod 5 03:14:17 [...] route. 06/18 completed mirena IUD insert lot [id number] Exp 03/2026 Not Available Not Available Not [...] injectio n that patient brought in lot [id number] Exp 03/2026 was given into left hip [...] ed Elsewher e: Yes Loca tion: [facility] odify By: vernon moss DateTime : 09/18/20 15 11:30:00 AM Not [...] Elsewher e: Yes Loca tion: [facility] odify By: lbillhar tz Encou nter DateTime : 10/13/20 10:00:00 AM Not Available Not Available Not Available 12/06 (28) 1 mg-20 mcg (21)/75 mg (7) tablet take 1 tablet by oral route every day 11/02 completed Prescrib ed Elsewher e: No Locat ion: [facility] odify By: majo abreu DateTime : 10/29/20 02:30:00 PM Not Available Not Available Not [...] Address Organization Details Last Updated DateTime 09/02/2025 69105.61778 g 106/69 mm[Hg] Allaharis Rodriguez [facility] 09/02/2025 15:31:58 Social History Question Answer Notes LastModified by Organizat ion Details LastModified Time Tobacco Smoking Status Never Smoker Isabel Santana jory, [facility] 12/10/2023 13:54:52 Do You Have An Advance Directive? No [email or web address] Information n ot available 01/24/2021 If You Are , What Was Your Level Of Alcohol Consumption Prior To ? None [email or web address] Information not available 12/10/2023 How Many Years Have You Consumed Alcohol? 9 [email or web address] Information not available 08/26/2024 Are You Blind Or Do You Have Difficulty Seeing? No [email or web address] Information n ot available 01/24/2021 What Is Your Level Of Caffeine Consumption? Occasional [email or web address] Information not available 03/22/2021 How Much Tobacco Do You Chew? None [email or web address] Information not available 01/24/2021 In The 14 Days Before Symptom Onset, Have You Had Close Contact With A Laboratory-confirm ed COVID-19 While That Case Was Ill? No [email or web address] Information n ot available 01/24/2021 In The 14 Days Before Symptom Onset, Have You Had Close Contact With A Person Who Is Under Investigation For COVID-19 While That Person Was Ill? No [email or web address] Information not available 01/24/2021 Have You Been To An Area Known To Be High Risk For COVID-19? No [email or web address] Information not available 01/24/2021 Are You Deaf Or Do You Have Serious Difficulty Hearing? No [email or web address] Information not available 01/24/2021 What Type Of Diet Are You Following? REGULAR [email or web address] Information n ot available 01/24/2021 What Is The Highest Grade Or Level Of School You Have Completed Or The Highest Degree You Have Received? MX24635-3 [email or web address] Information not available 01/24/2021 Are There Any Guns Present In Your Home? No [email or web address] Information not available 01/24/2021 What Was The Date Of Your Most Recent Tobacco Screening? 01/28/2024 [email or web address] Information not available 01/28/2024 Do You Use Protection During Sex? No [email or web address] Information not available 01/24/2021 Do You Use Your Seat Belt Or Car Seat Routinely? Yes [email or web address] Information not available 01/24/2021 Are You Sexually Active? Yes [email or web address] Information not available 06/22/2025 Do You Have Smoke And Carbon Monoxide Detectors In Your Home? Yes [email or web address] Information not available 01/24/2021 How Much Tobacco Do You Smoke? No [email or web address] Information not available 09/15/2020 Do You Use Sunscreen Routinely? No [email or web address] Information not available 01/24/2021 Has Tobacco Cessation Counseling Been Provided? No [email or web address] Information not available 12/10/2023 How Many Years Have You Smoked Tobacco? 0 [email or web address] Information not available 09/03/2023 Have You Used IV Drugs? No [email or web address] Information not available 01/24/2021 Do You Have Difficulty Walking Or Climbing Stairs? No [email or web address] Information not available 12/10/2023 Sex: Unknown Functional Status Question Answer Note LastModified by Organizat ion Details LastModified Time Do you use any illicit or recreational drugs? No [email or web address] Information not available 01/24/2021 Do you or have you ever used any other forms of tobacco or nicotine? No [email or web address] Information not available 12/10/2023 What is your level of alcohol consumption? None [email or web address] Information not available 09/13/2024 Do you or have you ever used smokeless tobacco? Never used smokeless tobacco [email or web address] Information not available 12/10/2023 Are you currently employed? Yes [email or web address] Information not available 06/22/2025 Are you able to walk independently without assistance or assistive devices? YESWOREST Information not available 01/24/2021 Are you able to care for yourself independently? 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 No [email or web address] Information not available 12/10/2023 Do you or have you ever used e-cigarettes or vape? Never used electronic cigarettes [email or web address] Information not available 12/10/2023 What is your exercise level? Occasional [email or web address] Information not available 09/15/2020 Mental Status Question Answer Note LastModified by Organization D etails LastModified Time Do you feel stressed (tense, restless, nervous, or anxious, or unable to sleep at night)? [id number] [email or web address] Information not available 07/02/2023 Family History Relationship Description Onset Age of this Age Resolved Age Notes LastModified by Organization Details LastModified Time Mother Cyst of ovary [email or web address] Not available 2024 10:59:33 Mother Endometritis [email or web address] Not avail able 11/07/2025 10:59:33 Mother Uterine adenomyosis [email or web address] Not available 10/18 10:59:33 Mother Hypertensive disorder [email or web address] Not available 2024 16:39:17 Mother Hypertensive disorder [email or web address] Not available 2024 10:59:33 Paternal Grandfather Malignant neoplasm of prostate [email or web address] Not available 2024 10:59:33 Medical History Condition Response Allergies (Food, seasonal, environmental ) N Other N Breast Cancer N Drug/Latex Allergies/Reactions Y Blood Transfusion N Dermatologic Disorders N Lung Disease N Defects or Inherited Disease N Breast Problem N Gestational Diabetes N Hematologic disorders N Anesthesia Complications N History of STI N Deep Vein Thrombosis N Polycystic ovary syndrome N Anxiety Disorder Y Autoimmune disease N Arthritis N Infertility N Polyps N Acid Reflux (GERD) N History of abnormal pap N Cancer N Stroke N Varicosities N Neurologic/Epilepsy N Endometriosis N High Cholesterol N Headaches N Fibromyalgia N Kidney Disease N Heart Problems N Kidney or Bladder Problems N Thyroid Problems N GI Problems N Eating Disorder [...] mcg/0.3 mL dose 10/30/2021 completed Ileana corley, [facility] 05/07/2023 11:42:10 Influenza, MDCK, quadrivalent, PF 08/14/2023 completed Alyssia corley [facility] 08/26/2024 11:31:51 COVID-19, mRNA, LNP-S, PF, jono-sucrose, 30 mcg/0.3 mL 08/14/2023 completed Alyssia corley, [facility] 08/26/2024 11:31:51 Past Encounters Encounter ID Performer Location Encounter Start Date Encounter Closed Date Diagnosis/Indication Diagnosis SNOMED-CT Code Diagnosis ICD10 Code Diagnosis IMO Codes [id number] [facility] [address] [place] [address] 08/12/2025 11:43:57 08/12/2025 14:52:33 Gestation period, 17 weeks [id number] Z3A.17 [id number] Sloan Bañuelos MD [place] [address] [place] [address] 09/02/2025 14:26:20 09/02/2025 15:29:07 Screening status [id number] Z36.3 Z3A.20 [id number] [facility] [address] [place] [address] 09/02/2025 14:26:36 09/02/2025 15:47:28 Gestation period, 20 weeks [id number] Z3A.20 [id number] Health Concerns Section Related Observation LastModified by Organization Detai ls LastModified Time None Recorded Concern Status LastModified by Organization Details LastModified Time None Recorded Payers Encounter Date Sequence Insurance Name Policy Number Policy Lamas Covered Member ID Lamas Member ID Guarantor Name 09/02/2025 1 [facility] [id number] Herbert Martin [id number] Ivan Martin Notes Date Note Type Note Provider Name and Address Organization Details Recorded Time 09/02/2025 text/html Generic HPI TemplateReported by Patient Bren Cole CNM [address], [place], [address], [facility] 09/02/2025 15:46:34 OBGyn Episode Ob Episode Information Episode Created Date Number of Fetuses Patient Bloodtype Patient rh Status Prepregnancy Weight lbs Domestic Partner Domestic Partner Phone Father Name Design Drafter Chief Status 06/22/20 25 1 B Positive 150 Herbert OPEN Fetus Data First Name Last Name Admitted to NICU Weight (g) Sex Living Outcome Pediatric Complications Fetus ID Race Codes Race Delivery Type [id number] Problems Problem Notes TSH low rpt [id number] growth us Problem Name Start Date End Date Resolution Snomed Code Not e Past history of gestational hypertension 06/22/2025 [id number] first bASA 81 mg daily plan bASA again History of kidney infection 07/13/2025 [id number] plan keflex now and then daily Anxiety 06/22/2025 [id number] sertralin e 100mg daily Rober Calculation Initial [...] Weight in lbs Pre/Post Dialysis Refused Weight 148.030823187485 BP Diastolic BP Location Tested BP Systolic [...] Weight in lbs Pre/Post Dialysis Refused Weight 147.472762807189 BP Diastolic BP Location Tested BP Systolic [...] Weight in lbs Pre/Post Dialysis Refused Weight 148.923998251701 BP Diastolic BP Location Tested BP Systolic [...] Type Weight in lbs Pre/Post Dialysis Refused 152.573414250104 BP Diastolic BP Location Tested BP Systolic [...] Type Weight in lbs Pre/Post Dialysis Refused 158.596101734129 BP Diastolic BP Location Tested BP Systolic [...] Weight in lbs Pre/Post Dialysis Refused Weight 167.793554322565 BP Diastolic BP Location Tested BP Systolic [...] Weight in lbs Pre/Post Dialysis Refused Weight 168.268109222138 BP Diastolic BP Location Tested BP Systolic [...]
--- OUTSIDE RECORDS SUMMARY | 2025-11-13 16:56 | XMS_ITS | Continuity of Care Document ---
Author Organization [facility] Address [address] [place] [address] Care Team Providers Care Reception Centre Manager Name Role Phone KATHRINE AMBROSIO Primary Care Provider [phone] Assessment Encounter Date Assessment Date Assessment LastModified by Organization Details LastModified Time 10/24/2025 10/24/2025 Patient is _27__weeks . Discussed plan. Not available 10/24/2025 11:02:49 Plan of Treatment Reminders Order Date Submit [...] Not Available Tony moncada [address], [place], [address], 07/19/2025 23:48:31 07/19/2007/19/2025 [UNIT Y] ANEUP LOIDY NIPT 22Q11.2 microdeletio n LOW RISK <1 in 10,000 normal Not Available [facility] [address], [place], [address], 07/19/2025 23:48:31 07/19/20 25 07/19/2025 [UNIT Y] ANEUP LOIDY NIPT sex chromosome aneuploidy NOT DETECT ED normal Not Available [facility] [address], [place], [address], 07/19/2025 23:48:31 07/19/20 25 07/19/2025 [UNIT Y] ANEUP LOIDY NIPT monosomy X LOW RISK <1 in 10,000 normal Not Available [facility] [address], [place], [address], 07/19/2025 23:48:31 07/19/20 25 07/19/2025 [UNIT Y] ANEUP LOIDY NIPT trisomy 13 LOW RISK <1 in 10,000 normal Not Available [facility] [address], [place], [address], 07/19/2025 23:48:31 07/19/20 25 07/19/2025 [UNIT Y] ANEUP LOIDY NIPT trisomy 18 LOW RISK <1 in 10,000 normal Not Available [facility] [address], [place], [address], 07/19/2025 23:48:31 07/19/20 25 07/19/2025 [UNIT Y] ANEUP LOIDY NIPT trisomy 21 LOW RISK <1 in 10,000 normal Not Available [facility] [address], [place], [address], 07/19/2025 23:48:31 07/19/20 25 07/19/2025 [UNIT Y] ANEUP LOIDY NIPT sex MALE normal Not Available [facility] [address], [place], [address], 07/19/2025 23:48:31 07/19/20 25 07/19/2025 [UNIT Y] ANEUP LOIDY NIPT gestation SINGLE TON normal Not Available [facility] [address], [place], [address], 07/19/2025 23:48:31 07/19/20 25 07/19/2025 [UNIT Y] ANEUP LOIDY NIPT for detailed report, see pdf See PDF normal Not Available [facility] [address], [place], [address], 07/19/2025 23:48:31 06/22/20 25 06/22/2025 CT/GC AND TRICH OMONA S VAGIN ENMANUEL (RRNA ), URINE chlamydia trachomatis, PCR Negati ve negati ve Not Available [facility] (Lab) [address], [place], [address], 06/23/2025 22:37:02 06/22/20 25 06/22/2025 CT/GC AND TRICH OMONA S VAGIN ENMANUEL (RRNA ), URINE neisseria gonorrhoeae, PCR Negati ve negati ve Not Available [facility] (Lab) [address], [place], [address], 06/23/2025 22:37:02 06/22/20 25 06/22/2025 CT/GC AND TRICH OMONA S VAGIN ENMANUEL (RRNA ), URINE trichomonas vaginalis ribosomal RNA (rrna) Negati ve negati ve Not Available [facility] (Lab) [address], [place], [address], 06/23/2025 22:37:02 06/22/20 25 06/22/2025 CULTU RE: URINE result report SEE RESULT S BELOW Test: Cultu re: Urine Speci men Sourc e: Urine Voide d Speci men Type: Urine Speci men Date: 1546 Resul t Date: 8/7/2 025 2133 Resul t Statu s: Final resul t Abnor mal: No Resul ting Lab: [facility] [address] [address] Tel: CULTU RE ----- ----- ----- --- No growt h in 1 day (dete ction level of 10,00 0 colon ies / ml.) Not Available [facility] (Lab) [address], [place], [address], 06/23/2025 22:37:03 07/13/2007/13/2025 CBC W/DIF F CBC and differential CANCEL LED Clott ed Speci men Not Available [facility] (Lab) [address] [place], [address], 07/14/2025 05:30:34 07/13/2007/13/2025 HEPAT ITIS B SURFA CE ANTIG EN hepatitis B surface antigen Non-re active non-re active This assay was perfo rmed using [employer] ratio n reage nts and test kits. Value s obtai kimmy with other assay metho ds or kits canno t be used inter rondon eably . Not Available [facility] (Lab) [address], [place], [address], 07/14/2025 14:35:42 07/13/2007/13/2025 HIV 1/2 ANTIG EN/AN TIBOD Y, REFLE X CONFI RMATI ON HIV antigen/anti body Nonrea ctive nonrea ctive HIV-1 antig en and HIV-1 /HIV- 2 antib odies were not detec andree. No labor atory evide nce of HIV infec tion. Not Available [facility] (Lab) [address] [place], [address], 07/14/2025 14:35:42 07/13/2007/13/2025 HEPAT ITIS C ANTIB TANYA SCREE N, REFLE X TO CONFI RMATI ON hepatitis C antibody Non-re active non-re active Antib odies to HCV Not Detec andree, does not exclu de the possi bilit y of expos ure to HCV. Not Available [facility] (Lab) [address], [place], [address], 07/14/2025 14:35:43 07/13/20 25 07/13/2025 T4 FREE T4, free 0.77 NG/dL 0.54-1 .24 This assay is susce ptibl e to inter feren ce from high level s of bioti n which may false ly eleva te resul ts. Pleas e corre late with clini mitchell findi ngs. Not Available [facility] (Lab) [address], [place], [address], 07/14/2025 14:35:43 07/13/20 25 07/13/2025 TSH, REFLE X FREE T4 TSH 0.27 uIU/m L 0.30-5 .33 low Not Available [facility] (Lab) [address], [place], [address], 07/14/2025 14:35:44 07/13/20 25 07/13/2025 RUBEL LA IGG ANTIB TANYA, QUANT rubella antibodies, IgG Reacti ve reacti ve Not Available [facility] (Lab) [address], [place], [address], 07/14/2025 14:35:44 07/13/20 25 07/13/2025 RUBEL LA IGG ANTIB TANYA, QUANT rubella antibodies, IgG quant 11.3 IU/mL >=10 Non-r eacti ve (Non- Immun e) <10 IU/mL React neno (Immu ne) > or = 10 IU/mL Not Available [facility] (Lab) [address], [place], [address], 07/14/2025 14:35:44 07/13/20 25 07/13/2025 RPR SCREE N, REFLE X TITER /CONF IRMAT ION RPR qualitative Nonrea ctive nonrea ctive Not Available [facility] (Lab) [address], [place], [address], 07/14/2025 14:35:44 07/13/2007/13/2025 HEMOG LOBIN A1C hemoglobin [...] >8.0% Actio n sugge sted Not Available [facility] (Lab) [address], [place], [address], 07/14/2025 14:35:45 07/13/2007/13/2025 CULTU RE: URINE result report SEE RESULT S BELOW abnormal Test: Cultu re: Urine Speci men Sourc e: Urine Voide d Speci men Type: Urine Speci men Date: 2024 1730 Resul t Date: 2024 0806 Resul t Statu s: Final resul t Luciaor mal: Yes Farnaz mccann Lab: [facility] [address] [address] Tel: CULTU RE ----- ----- ----- --- [...] <=0.5 ug/mL Susce ptibl e Not Available [facility] (Lab) [address], [place], [address], 07/16/2025 09:10:22 07/13/20 25 07/13/2025 urina lysis , dipst ick Leukocytes +++ Not Available [facility] stephanie [address], [place], [address], 07/13/2025 18:18:08 07/13/20 25 07/13/2025 urina lysis , dipst ick Nitrite ++ Not Available [place] [address], [place], [address], 07/13/2025 18:18:08 07/13/20 25 07/13/2025 urina lysis , dipst ick Blood +++ Not Available [place] [address], [place], [address], 07/13/2025 18:18:08 07/13/20 25 07/13/2025 drug scree n, urine Amphetamines : negati ve Not Available [facility] [address], [place], [address], 07/13/2025 18:16:25 07/13/20 25 07/13/2025 drug scree n, urine Cannabinoids : positi ve Not Available [place] [address], [place], [address], 07/13/2025 18:16:25 07/13/20 25 07/13/2025 drug scree n, urine Cocaine: negati ve Not Available [place] [address], [place], [address], 07/13/2025 18:16:25 07/13/20 25 07/13/2025 drug scree n, urine Opiates: negati ve Not Available [place] [address], [place], [address], 07/13/2025 18:16:25 07/13/20 25 07/13/2025 drug scree n, urine Phenocyclidi ne: negati ve Not Available [place] [address], [place], [address], 07/13/2025 18:16:25 07/13/20 25 07/13/2025 drug scree n, urine Barbiturates : negati ve Not Available [place] [address], [place], [address], 07/13/2025 18:16:25 07/13/20 25 07/13/2025 drug scree n, urine Benzodiazepi jorge: negati ve Not Available [place] [address], [place], [address], 07/13/2025 18:16:25 07/13/20 25 07/13/2025 drug scree n, urine Ethanol: negati ve Not Available [place] [address], [place], [address], 07/13/2025 18:16:25 07/13/20 25 07/13/2025 drug scree n, urine Hallucinogen s: negati ve Not Available [place] [address], [place], [address], 07/13/2025 18:16:25 07/13/20 25 07/13/2025 drug scree n, urine Inhalants: negati ve Not Available [place] [address], [place], [address], 07/13/2025 18:16:25 07/13/20 25 07/13/2025 drug scree n, urine Anabolic Steroids: negati ve Not Available [place] [address], [place], [address], 07/13/2025 18:16:25 08/12/20 25 08/12/2025 CBC W/DIF F WBC 6.3 10'3/ uL 3.5-10 .5 Not Available [facility] (Lab) [address], [place], [address], 08/13/2025 18:23:07 08/12/20 25 08/12/2025 CBC W/DIF F RBC 3.98 10'6/ uL (based on docume nted legal sex) 3.80-5 .20 Not Available [facility] (Lab) [address], [place], [address], 08/13/2025 18:23:07 08/12/20 25 08/12/2025 CBC W/DIF F HGB 11.5 g/dL (based on docume nted legal sex) 11.6-1 5.4 low Not Available [facility] (Lab) [address], [place], [address], 08/13/2025 18:23:07 09/26/20 25 08/12/2025 CBC W/DIF F HCT 36.9 % (based on docume nted legal sex) 34.0-4 5.0 Not Available [facility] (Lab) [address], [place], [address], 08/13/2025 18:23:07 08/12/2008/12/2025 CBC W/DIF F MCV 92.7 fL 80.0-9 9.0 Not Available [facility] (Lab) [address], [place], [address], 08/13/2025 18:23:07 08/12/2008/12/2025 CBC W/DIF F MCH 28.9 pg 27.0-3 4.0 Not Available [facility] (Lab) [address], [place], [address], 08/13/2025 18:23:07 08/12/20 25 08/12/2025 CBC W/DIF F MCHC 31.2 g/dL 32.0-3 5.5 low Not Available [facility] (Lab) [address], [place], [address], 08/13/2025 18:23:07 08/12/2008/12/2025 CBC W/DIF F RDW 13.8 % 11.0-1 5.0 Not Available [facility] (Lab) [address], [place], [address], 08/13/2025 18:23:07 08/12/20 25 08/12/2025 CBC W/DIF F plt 241 10'3/ uL 150-40 0 Not Available [facility] (Lab) [address], [place], [address], 08/13/2025 18:23:07 08/12/20 25 08/12/2025 CBC W/DIF F MPV 10.0 fL 8.8-12 .1 Not Available [facility] (Lab) [address], [place], [address], 08/13/2025 18:23:07 08/12/20 25 08/12/2025 CBC W/DIF F NRBC's 0.0 % 0.0 Not Available [facility] (Lab) [address], [place], [address], 08/13/2025 18:23:07 08/12/20 25 08/12/2025 CBC W/DIF F absolute NRBCs 0.0 10'3/ uL no refere nce range establ ished Not Available [facility] (Lab) [address], [place], [address], 08/13/2025 18:23:07 08/12/20 25 08/12/2025 CBC W/DIF F neutrophils 70.7 % 34.0-7 3.0 Not Available [facility] (Lab) [address], [place], [address], 08/13/2025 18:23:07 08/12/20 25 08/12/2025 CBC W/DIF F lymphocytes 22.8 % 15.0-5 0.0 Not Available [facility] (Lab) [address], [place], [address], 08/13/2025 18:23:07 08/12/20 25 08/12/2025 CBC W/DIF F monocytes 4.6 % 1.0-15 .0 Not Available [facility] (Lab) [address], [place], [address], 08/13/2025 18:23:07 08/12/20 25 08/12/2025 CBC W/DIF F eosinophils 1.3 % 0.0-8. 0 Not Available [facility] (Lab) [address], [place], [address], 08/13/2025 18:23:07 08/12/20 25 08/12/2025 CBC W/DIF F basophils 0.3 % 0.0-2. 0 Not Available [facility] (Lab) [address], [place], [address], 08/13/2025 18:23:07 08/12/2008/12/2025 CBC W/DIF F immature granulocytes 0.3 % no define d refere nce range Immat ure Granu locyt es (IG) repre sents autom ated enume ratio n of Metam yeloc ytes, Myelo cytes and Promy elocy karthikeyan when IG is < 5%. Blast s are not inclu ded in IG and repor andree separ ately if prese nt. Not Available [facility] (Lab) [address] , [place], [address], 08/13/2025 18:23:07 08/12/2008/12/2025 CBC W/DIF F absolute neutrophils 4.5 10'3/ uL 1.5-8. 0 Not Available [facility] (Lab) [address] , [place], [address], 08/13/2025 18:23:07 08/12/20 25 08/12/2025 CBC W/DIF F absolute lymphocytes 1.4 10'3/ uL 1.0-4. 0 Not Available [facility] (Lab) [address], [place], [address], 08/13/2025 18:23:07 08/12/20 25 08/12/2025 CBC W/DIF F absolute monocytes 0.3 10'3/ uL 0.2-1. 0 Not Available [facility] (Lab) [address] , [place], [address], 08/13/2025 18:23:07 08/12/2008/12/2025 CBC W/DIF F absolute eosinophils 0.1 10'3/ uL 0.0-0. 6 Not Available [facility] (Lab) [address], [place], [address], 08/13/2025 18:23:07 08/12/20 25 08/12/2025 CBC W/DIF F absolute basophils 0.0 10'3/ uL 0.0-0. 3 Not Available [facility] (Lab) [address], [place], [address], 08/13/2025 18:23:07 08/12/20 25 08/12/2025 CBC W/DIF [...] duncan book. nm.or g/gen derx Not Available [facility] (Lab) [address], [place], [address], 08/13/2025 18:23:07 08/12/2008/12/2025 TYPE/ RH/SC REEN ABO/Rh type B POS Not Available [facility] (Lab) [address], [place], [address], 08/13/2025 18:23:08 08/12/2008/12/2025 TYPE/ RH/SC REEN antibody screen NEG Not Available [facility] (Lab) [address] [place], [address], 08/13/2025 18:23:08 08/12/2008/12/2025 TYPE/ RH/SC REEN exp date 2024 23:59 Not Available [facility] (Lab) [address] [place], [address], 08/13/2025 18:23:08 08/12/2008/12/2025 TSH, REFLE X FREE T4 TSH 0.60 uIU/m L 0.30-5 .33 Not Available [facility] (Lab) [address] [place], [address], 08/13/2025 18:23:08 08/12/2008/12/2025 LEAD, BLOOD (ADUL T/PED IATRI C) lead, whole blood <1.0 mcg/d L <3.5 See Note 1 Eliecer sis was perfo rmed by Tanya Santana ed Plasm a Mass Spect romet ry (ICPM S) Note 1 This test was devel oped and its eliecer tical perfo rmanc e wale cteri stics have been deter mined by [employer]. It has not been clear ed or appro fabienne by the FDA. This assay has been valid ated pursu ant to the CLIA regul ation s and is used for clini mitchell purpo ses. Perfo rming Organ izati on Infor matio n: Site ID: CB Name: [employer]-Edil gasca Bobby Addre ss: [id number] [place] [address] Direc tor: Hodan Blanca s Not Available [facility] (Lab) [address] [place], [address], 08/13/2025 18:23:09 09/02/20 25 09/02/2025 TSH TSH 1.07 uIU/m L 0.30-5 .33 Not Available [facility] (Lab) [address] [place], [address], 09/03/2025 07:53:57 09/02/20 25 09/02/2025 T4 FREE T4, free 0.65 NG/dL 0.54-1 .24 This assay is susce ptibl e to inter feren ce from high level s of bioti n which may false ly eleva te resul ts. Annita e gaye late with clini mitchell findi ngs. Not Available [facility] (Lab) [address] [place], [address], 09/03/2025 07:53:58 09/30/20 25 09/30/2025 TSH TSH 0.97 uIU/m L 0.30-5 .33 Not Available [facility] (Lab) [address], [place], [address], 10/01/2025 11:38:44 09/30/20 25 09/30/2025 T4 FREE T4, free 0.69 NG/dL 0.54-1 .24 This assay is susce ptibl e to inter feren ce from high level s of bioti n which may false ly eleva te resul ts. Pleas e corre late with clini mitchell findi ngs. Not Available [facility] (Lab) [address], [place], [address], 10/01/2025 11:38:45 10/24/20 25 10/24/2025 TSH, REFLE X FREE T4 TSH 0.74 uIU/m L 0.30-5 .33 Not Available [facility] (Lab) [address], [place], [address], 10/25/2025 08:48:04 10/24/20 25 10/24/2025 HEMOG LOBIN (HGB) HGB 11.1 g/dL (based on docume nted legal sex) 11.6-1 5.4 low Not Available [facility] (Lab) [address], [place], [address], 10/25/2025 18:44:25 10/24/20 25 10/24/2025 HEMAT OCRIT (HCT) HCT 34.0 % (based on docume nted legal sex) 34.0-4 5.0 Not Available [facility] (Lab) [address], [place], [address], 10/25/2025 18:44:25 10/24/20 25 10/24/2025 GTT - GESTA BRANDON L, 3 HOUR, ACOG glucose, fasting acog 57 mg/dL 70-94 low Not Available [facility] (Lab) [address], [place], [address], 10/25/2025 18:44:26 10/24/20 25 10/24/2025 GTT - GESTA BRANDON L, 3 HOUR, ACOG glucose, 1 hour acog 128 mg/dL 70-179 Not Available [facility] (Lab) [address], [place], [address], 10/25/2025 18:44:26 10/24/20 25 10/24/2025 GTT - GESTA BRANDON L, 3 HOUR, ACOG glucose, 2 hour acog 110 mg/dL 70-154 Not Available [facility] (Lab) [address], [place], [address], 10/25/2025 18:44:26 10/24/20 25 10/24/2025 GTT - GESTA BRANDON L, 3 HOUR, ACOG glucose, 3 hour acog 69 mg/dL 70-139 low Not Available [facility] (Lab) [address], [place], [address], 10/25/2025 18:44:26 10/24/20 25 10/24/2025 HIV 1/2 ANTIG EN/AN TIBOD Y, REFLE X CONFI RMATI ON HIV antigen/anti body Nonrea ctive nonrea ctive HIV-1 antig en and HIV-1 /HIV- 2 antib odies were not detec andree. No labor atory evide nce of HIV infec tion. Not Available [facility] (Lab) [address], [place], [address], 10/25/2025 18:44:26 10/24/20 25 10/24/2025 RPR SCREE N, REFLE X TITER /CONF IRMAT ION RPR qualitative Nonrea ctive nonrea ctive Not Available [facility] (Lab) [address], [place], [address], 10/25/2025 18:44:26 06/22/20 25 06/22/2025 US, obste tric, 1st trime ster No observ ation record ed. [email or web address] Yovana [address], [place], [address], 06/23/2025 22:56:23 07/13/20 25 07/13/2025 US, obste tric, nucha l trans lucen cy No observ ation record ed. [email or web address] [place] [address], [place], [address], 07/13/2025 17:52:32 07/13/20 25 07/13/2025 US, obste tric, nucha l trans lucen cy No observ ation record ed. [email or web address] Yovana [address], [place], [address], 07/14/2025 22:05:03 07/13/20 25 07/13/2025 US, kidne y No observ ation record ed. [id number] [address], [place], [address], 07/20/2025 10:03:09 07/13/20 25 07/13/2025 US, kidne y No observ ation record ed. [place] [id number] [facility] [address] [facility], [place], [address], 07/20/2025 11:57:17 09/02/2009/02/2025 US, belinda tric, 2nd or 3rd trime ster No observ ation record ed. [email or web address] [place] [address], [place], [address], 09/02/2025 16:59:55 09/02/20 25 09/02/2025 US, belinda tric, follo w-up No observ ation record ed. [email or web address] Yov[address], [place], [address], 09/08/2025 09:56:57 10/31/20 25 10/31/2025 non-s tress test No observ ation record ed. [facility] [address], [place], [address], 10/31/2025 17:13:55 Result Notes None recorded. Problems Name Problem SNOMED Code Status Onset Date Resolution Date Notes Provider Name and Address Organization Details Recorded Time Pyelonep hritis 05401200 Completed suppress ion allergic to macrobid will do keflex 500mg daily [facility] 4 14:25:48 Nausea and vomiting 61608186 Completed zofran [facility], [facility] 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 4 14:25:48 Mixed anxiety and depressi ve disorder [id number] Completed zoloft 50mg increase to 100mg daily [facility] 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 18:05:[address] Concept Completed 201601/24/2021 Encntr for general adult medical exam w/o abnormal findings ;Recorde d Elsewher e: No Locat ion: [facility] S ource: EHR Policy Value Calculator servando: N Practi ce ID: 0001 Antoine lable Time: 10:00:00 AM Ileana Pritchetttz [facility] 18:05:09 Blood leukocyt e number above referenc e range [id number] Completed 201801/24/2021 Elevated white blood cell count, unspecif ied;Theodore rded Elsewher e: No [facility] Policy Value Calculator servando: N Practi ce ID: 0001 Antoine lable Time: 01:45:00 PM Ileana [facility], [facility] 18:05:08 Surveill ance of contrace ption Completed 201801/24/2021 Encounte r for surveill ance of contrace ptives, unspecif ied;Theodore rded Elsewher e: No Locat ion: [facility] S ource: EHR Policy Value Calculator servando: N Practi ce ID: 0001 Antoine lable Time: 08:15:00 AM Ileana [facility], [facility] 18:05:14 Surveill ance of vaginal hormone releasin g ring method of contrace ption Completed 201801/24/2021 Encounte r for surveill ance of vagnl ring;Pra ctice ID: [id number] Ileana [facility], [facility] 18:05:17 Pregnanc y 12321427 Completed 202009/21/2021 Brenda corley, [facility] 5 16:43:46 Pregnanc y 43807670 Completed 202212/22/2023 Brenda corley, [facility] 5 16:43:46 Pregnanc y 74078439 Active 2024 Bernda corley, [facility] 5 16:43:45 Past pregnanc y history of gestatio nal hyperten nova 951913509 Active 2024 first pregnanc y bASA 81 mg daily plan bASA again Bren Cole, RAFAEL [address], [place], [address], [place] [facility] 5 17:42:55 Anxiety 35560096 Active 2024 sertrali ne 100mg daily Bren Cole CNM [address], [place], [address], [facility] 17:43:56 History of kidney infectio n 887713827 Active 2024 plan keflex now and then daily Bren Cole CNM [address], [place], [address], [facility] 17:43:41 Problem Notes None recorded. Procedures Surgical History Date Name Laterality Status Provider Name and Address Organization Details Recorded Time 09/13/20 24 Date of Last Pap Smear completed Brenda Peters [facility] 06/22/2025 17:27:28 06/18/20 24 IUD Removal completed Bren Cole CNM [address], [place], [address], [facility] 06/18/2024 11:48:36 01/28/20 24 IUD Insertion completed [address], [place], [address], [facility] 01/28/2024 17:31:59 11/27/19 23 IUD Removal completed [address], [place], [address], [facility] 11/27/2022 19:44:02 10/19/20 21 IUD Insertion completed [address], [place], [address], [facility] 10/19/2021 14:51:45 11/17/19 05 Oral surgery procedure completed Ileana Childress [facility] 06/04/2023 14:45:32 11/17/19 04 Tonsillectomy completed Ileana Pritchetttz [facility] 09/14/2020 16:00:06 Tonsillectomy completed Alyssia Wills [facility] 01/24/2025 09:25:00 Imaging Results None recorded. Procedure Notes None recorded. Medical Equipment None Reported. Allergies Allergen ID Allergen Name Allergen Category Reaction Reaction Severity Criticality Documentation Date Start Date Code Code System Note Provider Name and Address Organization Details Recorded Time 71187 nitrofura ntoin medicatio n hives moderate Not available 11/03/2020 7454 RxNorm Shirlene Call [facility] 1 16:56:42 98760 Macrobid medicatio n hives moderate Not available 01/24/2021 57361 1 RxNorm Ileana Childress [facility] [facility] 1 18:04:59 2536 coconut extract food,medi cation cough mild Not available 09/14/2020 83762 48 RxNorm Ileana Childress [facility], [facility] 0 16:00:31 2537 Medicinal product containin g nitrofura n derivativ e and acting as antibacte rial agent (product) medicatio n hives moderate Not available 09/14/2020 16911 2001 SNOMED Ileana Childress [facility] 0 16:00:50 77124 coconut allergeni c extract food,medi cation cough Not available Not available 09/30/20252016 77030 1 RxNorm Not Available [employer] - External Data Service - prod 5 03:13:32 29383 coconut oil food,medi cation cough Not available low 09/30/20252016 57012 39 RxNorm Not Available [employer] External Data Service - prod 5 03:14:17 [...] route. 06/18 completed mirena IUD insert lot [id number] Exp 03/2026 Not Available Not Available Not [...] injectio n that patient brought in lot [id number] Exp 03/2026 was given into left hip [...] ed Elsewher e: Yes Loca tion: [facility] odify By: vernon moss DateTime : 09/18/20 [...] ed Elsewher e: Yes Loca tion: [facility] odify By: kofihar tz Encou nter DateTime : 10/13/20 10:00:00 AM Not Available Not Available Not Available 12/06 (28) 1 mg-20 mcg (21)/75 mg (7) tablet take 1 tablet by oral route every day 11/02 completed Prescrib colby Pollack e: No Locat ion: [facility] odify By: majo abreu DateTime : [...] Available Not Available Vitals Date Recorded Body height Body mass index (BMI) Body weight Systolic And Diastolic Provider Name and Address Organization Details Last Updated DateTime 10/24/2025 163.83 cm 28.2 kg/m2 47796.93 g 113/73 mm[Hg] Zulypiero Pinkchristo [facility] 10/24/2025 10:17:48 Social History Question Answer Notes LastModified by Organizat ion Details LastModified Time Tobacco Smoking Status Never Smoker Isabel Santana jory, [facility] 12/10/2023 13:54:52 Do You Have An Advance Directive? No [email or web address] Information n ot available 01/24/2021 If You Are , What Was Your Level Of Alcohol Consumption Prior To ? None [email or web address] Information not available 12/10/2023 How Many Years Have You Consumed Alcohol? 9 [email or web address] Information not available 08/26/2024 Are You Blind Or Do You Have Difficulty Seeing? No [email or web address] Information n ot available 01/24/2021 What Is Your Level Of Caffeine Consumption? Occasional [email or web address] Information not available 03/22/2021 How Much Tobacco Do You Chew? None [email or web address] Information not available 01/24/2021 In The 14 Days Before Symptom Onset, Have You Had Close Contact With A Laboratory-confirm ed COVID-19 While That Case Was Ill? No [email or web address] Information n ot available 01/24/2021 In The 14 Days Before Symptom Onset, Have You Had Close Contact With A Person Who Is Under Investigation For COVID-19 While That Person Was Ill? No [email or web address] Information not available 01/24/2021 Have You Been To An Area Known To Be High Risk For COVID-19? No [email or web address] Information not available 01/24/2021 Are You Deaf Or Do You Have Serious Difficulty Hearing? No [email or web address] Information not available 01/24/2021 What Type Of Diet Are You Following? REGULAR [email or web address] Information n ot available 01/24/2021 What Is The Highest Grade Or Level Of School You Have Completed Or The Highest Degree You Have Received? RL78002-1 [email or web address] Information not available 01/24/2021 Are There Any Guns Present In Your Home? No [email or web address] Information not available 01/24/2021 What Was The Date Of Your Most Recent Tobacco Screening? 01/28/2024 [email or web address] Information not available 01/28/2024 Do You Use Protection During Sex? No [email or web address] Information not available 01/24/2021 Do You Use Your Seat Belt Or Car Seat Routinely? Yes [email or web address] Information not available 01/24/2021 Are You Sexually Active? Yes [email or web address] Information not available 06/22/2025 Do You Have Smoke And Carbon Monoxide Detectors In Your Home? Yes [email or web address] Information not available 01/24/2021 How Much Tobacco Do You Smoke? No [email or web address] Information not available 09/15/2020 Do You Use Sunscreen Routinely? No [email or web address] Information not available 01/24/2021 Has Tobacco Cessation Counseling Been Provided? No [email or web address] Information not available 12/10/2023 How Many Years Have You Smoked Tobacco? 0 [email or web address] Information not available 09/03/2023 Have You Used IV Drugs? No [email or web address] Information not available 01/24/2021 Do You Have Difficulty Walking Or Climbing Stairs? No [email or web address] Information not available 12/10/2023 Sex: Unknown Functional Status Question Answer Note LastModified by Organizat ion Details LastModified Time Do you use any illicit or recreational drugs? No [email or web address] Information not available 01/24/2021 Do you or have you ever used any other forms of tobacco or nicotine? No [email or web address] Information not available 12/10/2023 What is your level of alcohol consumption? None [email or web address] Information not available 09/13/2024 Do you or have you ever used smokeless tobacco? Never used smokeless tobacco [email or web address] Information not available 12/10/2023 Are you currently employed? Yes [email or web address] Information not available 06/22/2025 Are you able to walk independently without assistance or assistive devices? YESWOREST [email or web address] Information not available 01/24/2021 Are you able to care for yourself independently? Yes [email or web address] Information not available 12/10/2023 What is your occupation? [employer] [email or web address] Information not available 01/24/2021 Do you have difficulty dressing, bathing, grooming, or toileting? No [email or web address] Information not available 12/10/2023 Do you or have you ever used e-cigarettes or vape? Never used electronic cigarettes [email or web address] Information not available 12/10/2023 What is your exercise level? Occasional Information not available 09/15/2020 Mental Status Question Answer Note LastModified by Organization D etails LastModified Time Do you feel stressed (tense, restless, nervous, or anxious, or unable to sleep at night)? [id number] [email or web address] Information not available 07/02/2023 Family History Relationship Description Onset Age of this Age Resolved Age Notes LastModified by Organization Details LastModified Time Mother Cyst of ovary Not available 2024 10:59:33 Mother Endometritis [email or web address] Not avail able 11/07/2025 10:59:33 Mother Uterine adenomyosis [email or web address] Not available 10/18 10:59:33 Mother Hypertensive disorder [email or web address] Not available 2024 16:39:17 Mother Hypertensive disorder [email or web address] Not available 2024 10:59:33 Paternal Grandfather Malignant neoplasm of prostate [email or web address] Not available 2024 10:59:33 Medical History Condition [...] mcg/0.3 mL dose 10/30/2021 completed Ileana corley, [facility] 05/07/2023 11:42:10 Influenza, MDCK, quadrivalent, PF 08/14/2023 completed Alyssia corley, [facility] 08/26/2024 11:31:51 COVID-19, mRNA, LNP-S, PF, jono-sucrose, 30 mcg/0.3 mL 08/14/2023 completed Alyssia corley, [facility] 08/26/2024 11:31:51 Past Encounters Encounter ID Performer Location Encounter Start Date Encounter Closed Date Diagnosis/Indication Diagnosis SNOMED-CT Code Diagnosis ICD10 Code Diagnosis IMO Codes [id number] [facility] [address] [place] [address] 09/30/2025 16:49:30 10/03/2025 08:55:10 Gestation period, 23 weeks 52088751 Z3A.23 [id number] [facility] [address] [place] [address] 10/24/2025 09:56:35 10/24/2025 11:37:37 Gestation period, 27 weeks 94876394 Z3A.27 6822844 Health Concerns Section Related Observation LastModified by Organization Detai ls LastModified Time None Recorded Concern Status LastModified by Organization Details LastModified Time None Recorded Payers Encounter Date Sequence Insurance Name Policy Number Policy Lamas Covered Member ID Lamas Member ID Guarantor Name 10/24/2025 1 [facility] [id number] Herbert Martin [id number] Ivan Martin Notes Date Note Type Note Provider Name and Address Organization Details Recorded Time 10/24/2025 text/html Generic HPI TemplateReported by Patient Bren EDarrion Cole, RAFA[facility] [address], [place], [address], [facility] 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 Status 06/22/20 25 1 B Positive 150 Herbert OPEN Fetus Data First Name Last Name Admitted to NICU Weight (g) Sex Living Outcome Pediatric Complications Fetus ID Race Codes Race Delivery Type [id number] Problems Problem Notes TSH low rpt [id number] growth us Problem Name Start Date End Date Resolution Snomed Code Not e Past history of gestational hypertension 06/22/2025 [id number] first bASA 81 mg daily plan bASA again History of kidney infection 07/13/2025 [id number] plan keflex now and then daily Anxiety 06/22/2025 44066252 sertralin e 100mg daily Rober Calculation Initial [...] Weight in lbs Pre/Post Dialysis Refused Weight 148.676820031006 BP Diastolic BP Location Tested BP Systolic [...] Weight in lbs Pre/Post Dialysis Refused Weight 147.867786809025 BP Diastolic BP Location Tested BP Systolic [...] Weight in lbs Pre/Post Dialysis Refused Weight 148.729570165996 BP Diastolic BP Location Tested BP Systolic [...] Type Weight in lbs Pre/Post Dialysis Refused 152.544081114710 BP Diastolic BP Location Tested BP Systolic [...] Type Weight in lbs Pre/Post Dialysis Refused 158.859511295328 BP Diastolic BP Location Tested BP Systolic [...] Weight in lbs Pre/Post Dialysis Refused Weight 167.893476421279 BP Diastolic BP Location Tested BP Systolic [...] Weight in lbs Pre/Post Dialysis Refused Weight 168.521301239177 BP Diastolic BP Location Tested BP Systolic [...]
--- OUTSIDE RECORDS SUMMARY | 2025-11-13 16:56 | XMS_ITS | Data Portability ---
Author Organization [facility] Address [address] [place] [address] Care Team Providers Care Assistant Center Manager Name Role Phone KATHRINE AMBROSIO Primary Care Provider [phone] Assessment Encounter Date Assessment Date Assessment LastModified by Organization Details LastModified Time 09/02/2025 09/02/2025 Patient is _20__weeks . Discussed plan. [email or web address] Not available 09/02/2025 15:46:26 09/30/2025 09/30/2025 Patient is ___weeks . Discussed plan. [email or web address] Not available 09/30/2025 16:59:50 10/24/2025 10/24/2025 Patient is _27__weeks . Discussed plan. [email or web address] Not available 10/24/2025 11:02:49 11/07/2025 11/07/2025 Patient is _29__weeks . Discussed plan. [email or web address] Not available 11/07/2025 11:25:40 Plan of Treatment Reminders Order Date Submit [...] or 3rd trimest er 2024 025 [email or web address] [place], [address], [address], [place], [address], 09/03/2025 22:40:55 Medication Orders ondanse li 4 mg disinte grating tablet 2024 025 [facility]/Pharmacy #[id number], [address], [place], [address], 11/07/2025 11:26:39 nifedip ine 10 mg capsule 2024 025 [facility]/Pharmacy #[id number], [address], [place], [address], 11/07/2025 11:26:19 Patient TargetsNo targets recorded. Patient InstructionsNo instructions recorded. Reason for Referral None Reported. Results Created Date Observation Date Name Description Value Unit Range Abnormal Flag Note LastModifiedBy Organization Detail LastModifiedTime 08/12/2008/12/2025 CBC W/DIF F WBC 6.3 10'3/ uL 3.5-10 .5 Not Available [facility] (Lab) [address], [place], [address], 08/13/2025 18:23:07 08/12/2008/12/2025 CBC W/DIF F RBC 3.98 10'6/ uL (based on docume nted legal sex) 3.80-5 .20 Not Available [facility] (Lab) [address], [place], [address], 08/13/2025 18:23:07 08/12/20 25 08/12/2025 CBC W/DIF F HGB 11.5 g/dL (based on docume nted legal sex) 11.6-1 5.4 low Not Available [facility] (Lab) [address], [place], [address], 08/13/2025 18:23:07 08/12/20 25 08/12/2025 CBC W/DIF F HCT 36.9 % (based on docume nted legal sex) 34.0-4 5.0 Not Available [facility] (Lab) [address], [place], [address], 08/13/2025 18:23:07 08/12/2008/12/2025 CBC W/DIF F MCV 92.7 fL 80.0-9 9.0 Not Available [facility] (Lab) [address], [place], [address], 08/13/2025 18:23:07 08/12/20 25 08/12/2025 CBC W/DIF F MCH 28.9 pg 27.0-3 4.0 Not Available [facility] (Lab) [address], [place], [address], 08/13/2025 18:23:07 08/12/2008/12/2025 CBC W/DIF F MCHC 31.2 g/dL 32.0-3 5.5 low Not Available [facility] (Lab) [address], [place], [address], 08/13/2025 18:23:07 08/12/2008/12/2025 CBC W/DIF F RDW 13.8 % 11.0-1 5.0 Not Available [facility] (Lab) [address], [place], [address], 08/13/2025 18:23:07 08/12/2008/12/2025 CBC W/DIF F plt 241 10'3/ uL 150-40 0 Not Available [facility] (Lab) [address], [place], [address], 08/13/2025 18:23:07 08/12/20 25 08/12/2025 CBC W/DIF F MPV 10.0 fL 8.8-12 .1 Not Available [facility] (Lab) [address], [place], [address], 08/13/2025 18:23:07 08/12/2008/12/2025 CBC W/DIF F NRBC's 0.0 % 0.0 Not Available [facility] (Lab) [address], [place], [address], 08/13/2025 18:23:07 08/12/2008/12/2025 CBC W/DIF F absolute NRBCs 0.0 10'3/ uL no refere nce range establ ished Not Available [facility] (Lab) [address], [place], [address], 08/13/2025 18:23:07 08/12/2008/12/2025 CBC W/DIF F neutrophils 70.7 % 34.0-7 3.0 Not Available [facility] (Lab) [address], [place], [address], 08/13/2025 18:23:07 08/12/20 25 08/12/2025 CBC W/DIF F lymphocytes 22.8 % 15.0-5 0.0 Not Available [facility] (Lab) [address], [place], [address], 08/13/2025 18:23:07 08/12/2008/12/2025 CBC W/DIF F monocytes 4.6 % 1.0-15 .0 Not Available [facility] (Lab) [address], [place], [address], 08/13/2025 18:23:07 08/12/2008/12/2025 CBC W/DIF F eosinophils 1.3 % 0.0-8. 0 Not Available [facility] (Lab) [address], [place], [address], 08/13/2025 18:23:07 08/12/2008/12/2025 CBC W/DIF F basophils 0.3 % 0.0-2. 0 Not Available [facility] (Lab) [address] [place], [address], 08/13/2025 18:23:07 08/12/2008/12/2025 CBC W/DIF F immature granulocytes 0.3 % no define d refere nce range Immat ure Granu locyt es (IG) repre sents autom ated enume ratio n of Metam yeloc ytes, Myelo cytes and Promy elocy karthikeyan when IG is < 5%. Blast s are not inclu ded in IG and repor andree separ ately if prese nt. Not Available [facility] (Lab) [address], [place], [address], 08/13/2025 18:23:07 08/12/2008/12/2025 CBC W/DIF F absolute neutrophils 4.5 10'3/ uL 1.5-8. 0 Not Available [facility] (Lab) [address], [place], [address], 08/13/2025 18:23:07 08/12/20 25 08/12/2025 CBC W/DIF F absolute lymphocytes 1.4 10'3/ uL 1.0-4. 0 Not Available [facility] (Lab) [address] , [place], [address], 08/13/2025 18:23:07 08/12/20 25 08/12/2025 CBC W/DIF F absolute monocytes 0.3 10'3/ uL 0.2-1. 0 Not Available [facility] (Lab) [address], [place], [address], 08/13/2025 18:23:07 08/12/2008/12/2025 CBC W/DIF F absolute eosinophils 0.1 10'3/ uL 0.0-0. 6 Not Available [facility] (Lab) [address], [place], [address], 08/13/2025 18:23:07 08/12/20 25 08/12/2025 CBC W/DIF F absolute basophils 0.0 10'3/ uL 0.0-0. 3 Not Available [facility] (Lab) [address], [place], [address], 08/13/2025 18:23:07 08/12/2008/12/2025 CBC W/DIF F absolute immature granulocytes 0.0 10'3/ uL 0.00-0 .10 Refer ence range s for nonbi nary/ inter sex or unspe cifie d gende r patie nts have not been estab lishe d. Pleas e [facility] for range s estab lishe d for cisge nder patie nts and evalu ate in the clini mitchell gomez xt of the indiv idual patie nt: https ://huy duncan book. nm.or g/gen derx Not Available [facility] (Lab) [address], [place], [address], 08/13/2025 18:23:07 08/12/2008/12/2025 TYPE/ RH/SC REEN ABO/Rh type B POS Not Available [facility] (Lab) [address], [place], [address], 08/13/2025 18:23:08 08/12/2008/12/2025 TYPE/ RH/SC REEN antibody screen NEG Not Available [facility] (Lab) [address], [place], [address], 08/13/2025 18:23:08 08/12/2008/12/2025 TYPE/ RH/SC REEN exp date 2024 23:59 Not Available [facility] (Lab) [address], [place], [address], 08/13/2025 18:23:08 08/12/2008/12/2025 TSH, REFLE X FREE T4 TSH 0.60 uIU/m L 0.30-5 .33 Not Available [facility] (Lab) [address], [place], [address], 08/13/2025 18:23:08 08/12/2008/12/2025 LEAD, BLOOD (ADUL T/PED IATRI C) lead, whole blood <1.0 mcg/d L <3.5 See Note 1 Eliecer sis was perfo rmed by Tanya Santana ed Plasm a Mass Spect romet ry (ICPM S) Note 1 This test was devel oped and its eliecer tical perfo rmanc e wale cteri stics have been deter mined by [employer]. It has not been clear ed or appro fabienne by the FDA. This assay has been valid ated pursu ant to the CLIA regul ation s and is used for clini mitchell purpo ses. Perfo rming Organ izati on Infor matio n: Site ID: CB Name: [facility] s-Edil gasca Bobby Addre ss: [address] [place] [address] Direc tor: Hodan Blanca s Not Available [facility] (Lab) [address] [place], [address], 08/13/2025 18:23:09 09/02/20 25 09/02/2025 TSH TSH 1.07 uIU/m L 0.30-5 .33 Not Available [facility] (Lab) [address] [place], [address], 09/03/2025 07:53:57 09/02/20 25 09/02/2025 T4 FREE T4, free 0.65 NG/dL 0.54-1 .24 This assay is susce ptibl e to inter feren ce from high level s of bioti n which may false ly eleva te resul ts. Pleas e corre late with clini mitchell findi ngs. Not Available [facility] (Lab) [address] [place], [address], 09/03/2025 07:53:58 09/30/20 25 09/30/2025 TSH TSH 0.97 uIU/m L 0.30-5 .33 Not Available [facility] (Lab) [address] [place], [address], 10/01/2025 11:38:44 09/30/20 25 09/30/2025 T4 FREE T4, free 0.69 NG/dL 0.54-1 .24 This assay is susce ptibl e to leslie lara ce from high level s of bioti n which may false ly eleva te resul ts. Pleas e corre late with clini mitchell findi ngs. Not Available [facility] (Lab) [address] [facility] [address], [place], [address], 10/01/2025 11:38:45 10/24/20 25 10/24/2025 TSH, REFLE X FREE T4 TSH 0.74 uIU/m L 0.30-5 .33 Not Available [facility] (Lab) [address] [facility] [address], [place], [address], 10/25/2025 08:48:04 10/24/20 25 10/24/2025 HEMOG LOBIN (HGB) HGB 11.1 g/dL (based on docume nted legal sex) 11.6-1 5.4 low Not Available [facility] (Lab) [address], [place], [address], 10/25/2025 18:44:25 10/24/20 25 10/24/2025 HEMAT OCRIT (HCT) HCT 34.0 % (based on docume nted legal sex) 34.0-4 5.0 Not Available [facility] (Lab) [address], [place], [address], 10/25/2025 18:44:25 10/24/20 25 10/24/2025 GTT - GESTA BRANDON L, 3 HOUR, ACOG glucose, fasting acog 57 mg/dL 70-94 low Not Available [facility] (Lab) [address], [place], [address], 10/25/2025 18:44:26 10/24/20 25 10/24/2025 GTT - GESTA BRANDON L, 3 HOUR, ACOG glucose, 1 hour acog 128 mg/dL 70-179 Not Available [facility] (Lab) [address], [place], [address], 10/25/2025 18:44:26 10/24/20 25 10/24/2025 GTT - GESTA BRANDON L, 3 HOUR, ACOG glucose, 2 hour acog 110 mg/dL 70-154 Not Available [facility] (Lab) [address], [place], [address], 10/25/2025 18:44:26 10/24/20 25 10/24/2025 GTT - GESTA BRANDON L, 3 HOUR, ACOG glucose, 3 hour acog 69 mg/dL 70-139 low Not Available [facility] (Lab) [address], [place], [address], 10/25/2025 18:44:26 10/24/20 25 10/24/2025 HIV 1/2 ANTIG EN/AN TIBOD Y, REFLE X CONFI RMATI ON HIV antigen/anti body Nonrea ctive nonrea ctive HIV-1 antig en and HIV-1 /HIV- 2 antib odies were not detec andree. No labor atory evide nce of HIV infec tion. Not Available [facility] (Lab) [address], [place], [address], 10/25/2025 18:44:26 10/24/20 25 10/24/2025 RPR SCREE N, REFLE X TITER /CONF IRMAT ION RPR qualitative Nonrea ctive nonrea ctive Not Available [facility] (Lab) [address], [place], [address], 10/25/2025 18:44:26 09/02/20 25 09/02/2025 US, obste tric, 2nd or 3rd trime ster No observ ation record ed. [facility] [address], [place], [address], 09/02/2025 16:59:55 09/02/2009/02/2025 US, obste tric, follo w-up No observ ation record ed. [address], [place], [address], 09/08/2025 09:56:57 10/31/2010/31/2025 non-s tress test No observ ation record ed. [address], [place], [address], 10/31/2025 17:13:55 Result Notes None recorded. Problems Name Problem SNOMED Code Status Onset Date Resolution Date Notes Provider Name and Address Organization Details Recorded Time Pyelonep hritis 27330658 Completed suppress ion allergic to macrobid will do keflex 500mg daily [facility] 4 14:25:48 Nausea and vomiting 83039526 [facility] 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 4 14:25:48 Mixed anxiety and depressi ve disorder 161909840 Completed zoloft 50mg increase to 100mg daily [facility] 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 18:05:[address] Concept Completed 201601/24/2021 Encntr for general adult medical exam w/o abnormal findings ;Recorde d Elsewher e: No Locat ion: [facility] S ource: EHR Energy Analyst servando: N Carterti ce ID: 0001 Antoine lable Time: 10:00:[address] [facility] 18:05:09 Blood leukocyt e number above referenc e range [id number] Completed 201801/24/2021 Elevated white blood cell count, unspecif ied;Theodore rded Elsewher e: No Locat ion: [facility] S ource: EHR Energy Analyst servando: N Practi ce ID: 0001 Antoine lable Time: 01:45:00 PM Ileana Childress jory, [facility] 18:05:08 Surveill ance of contrace ption Completed 201801/24/2021 Encounte r for surveill ance of contrace ptives, unspecif ied;Theodore rded Elsewher e: No Locat ion: [facility] S ource: EHR Energy Analyst servando: N Carterti ce ID: 0001 Antoine lable Time: 08:15:00 AM Ileana Childress [facility] 18:05:14 Surveill ance of vaginal hormone releasin g ring method of contrace ption Completed 201801/24/2021 Encounte r for surveill ance of vagnl ring;Pra ctice ID: [id number] Ileana Childress null, [facility] 18:05:17 Pregnanc y 99265435 Completed 202009/21/[address] [facility] 5 16:43:46 Pregnanc y 08652768 Completed 202212/22/[address] [facility] 5 16:43:46 Pregnanc y 22659063 Active 2024 Brenda corley, [facility] 16:43:45 Past pregnanc y history of gestatio nal hyperten nova 369010237 Active 2024 first pregnanc y bASA 81 mg daily plan bASA again Bren Cole CNM [address], [place], [address], [facility] 17:42:55 Anxiety 44735875 Active 2024 sertrali ne 100mg daily Bren Cole CNM [address], [place], [address], [facility] 17:43:56 History of kidney infectio n 316255564 Active 2024 plan keflex now and then daily Bren Cole CNM [address], [place], [address], [facility] 17:43:41 Problem Notes None recorded. Procedures Surgical History Date Name Laterality Status Provider Name and Address Organization Details Recorded Time 09/13/20 24 Date of Last Pap Smear completed Brenda Peters [facility] 06/22/2025 17:27:28 06/18/20 24 IUD Removal completed Bren Cole CNM [address], [place], [address], [facility] 06/18/2024 11:48:36 01/28/20 24 IUD Insertion completed [address] [place], [address], [facility] 01/28/2024 17:31:59 11/27/19 23 IUD Removal completed Bren Cole CNM [address], [place], [address], [facility] 11/27/2022 19:44:02 10/19/20 21 IUD Insertion completed Bren Cole CNM [address], [place], [address], [facility] 10/19/2021 14:51:45 11/17/19 05 Oral surgery procedure completed Ileana Childress [facility] 06/04/2023 14:45:32 11/17/19 04 Tonsillectomy [address] Ile[address] Childress [facility] 09/14/2020 16:00:06 Tonsillectomy completed Alyssia Wills [facility] 01/24/2025 09:25:00 Imaging Results None recorded. Procedure Notes None recorded. Medical Equipment None Reported. Allergies Allergen ID Allergen Name Allergen Category Reaction Reaction Severity Criticality Documentation Date Start Date Code Code System Note Provider Name and Address Organization Details Recorded Time 14678 nitrofura ntoin medicatio n hives moderate Not available 11/03/2020 7454 RxNorm Shirlene Call [facility] 1 16:56:42 79826 Macrobid medicatio n hives moderate Not available 01/24/2021 11905 1 RxNorm Ileana Childress [facility] 1 18:04:59 2536 coconut extract food,medi cation cough mild Not available 09/14/2020 83299 48 RxNorm Ileana Childress [facility] 0 16:00:31 2537 Medicinal product containin g nitrofura n derivativ e and acting as antibacte rial agent (product) medicatio n hives moderate Not available 09/14/2020 85974 2001 SNOMED Ileana Childress [facility] 0 16:00:50 67902 coconut allergeni c extract food,medi cation cough Not available Not available 09/30/20252016 91005 1 RxNorm Not Available chuck - External Data Service - prod 5 03:13:32 65482 coconut oil food,medi cation cough Not available low 09/30/20252016 31944 39 RxNorm Not Available chuck - External [...] route. 06/18 completed mirena IUD insert lot [id number] 03/2026 Not Available Not Available Not [...] injectio n that patient brought in lot [id number] 03/2026 was given into left hip [...] Not Available Not Available Microgest in Fe 1.5/30 (28) 1.5 mg-30 mcg (21)/75 mg (7) tablet take 1 tablet by oral route every day 10/13 completed Prescrib colby Pollack e: Yes Loca tion: [facility] odify By: vernon moss DateTime : 09/18/20 [...] Prescrib ed Elsewher e: Yes Loca tion: [facility] odify By: kathy tz Encou nter DateTime : 10/13/20 10:00:00 AM Not Available Not Available Not Available 12/06 (28) 1 mg-20 mcg (21)/75 mg (7) tablet take 1 tablet by oral route every day 11/02 completed Prescrib ed Elsewher e: No Locat ion: [facility] odify By: majo abreu DateTime : [...] x 4)/0.5 mL IM syringe PHARMACY ADMINIST MARICRUZ 01/24 completed Not Available Not Available Not Available calcium 200 mg-vitami n D3 1.25 mcg-magne sium 50 mg capsule 01/24 completed Not Available Not Available Not Available BinaxNOW COVID-19 Ag Self Test kit 05/07 completed Not Available Not Available Not Available Vitals Date Recorded Body weight Systolic And Diastolic Provider Name and Address Organization Details Last Updated DateTime 09/02/2025 29983.37074 g 106/69 mm[Hg] [facility] 09/02/2025 15:31:58 Date Recorded Body weight Systolic And Diastolic Provider Name and Address Organization Details Last Updated DateTime 09/30/2025 76614.00906 g 118/72 mm[Hg] [facility] 09/30/2025 17:00:17 Date Recorded Body height Body mass index (BMI) Body weight Systolic And Diastolic Provider Name and Address Organization Details Last Updated DateTime 10/24/2025 163.83 cm 28.2 kg/m2 26882.93 g 113/73 mm[Hg] [facility] 10/24/2025 10:17:48 Date Recorded Body height Body mass index (BMI) Body weight Systolic And Diastolic Provider Name and Address Organization Details Last Updated DateTime 11/07/2025 163.83 cm 28.4 kg/m2 08673.52 g 113/75 mm[Hg] [facility] 11/07/2025 11:07:38 Social History Question Answer Notes LastModified by Organizat ion Details LastModified Time Tobacco Smoking Status Never Smoker [facility] 12/10/2023 13:54:52 Do You Have An Advance Directive? No [email or web address] Information n ot available 01/24/2021 If You Are , What Was Your Level Of Alcohol Consumption Prior To ? None [email or web address] Information not available 12/10/2023 How Many Years Have You Consumed Alcohol? 9 [email or web address] Information not available 08/26/2024 Are You Blind Or Do You Have Difficulty Seeing? No [email or web address] Information n ot available 01/24/2021 What Is Your Level Of Caffeine Consumption? Occasional [email or web address] Information not available 03/22/2021 How Much Tobacco Do You Chew? None [email or web address] Information not available 01/24/2021 In The 14 Days Before Symptom Onset, Have You Had Close Contact With A Laboratory-confirm ed COVID-19 While That Case Was Ill? No [email or web address] Information n ot available 01/24/2021 In The 14 Days Before Symptom Onset, Have You Had Close Contact With A Person Who Is Under Investigation For COVID-19 While That Person Was Ill? No [email or web address] Information not available 01/24/2021 Have You Been To An Area Known To Be High Risk For COVID-19? No Information not available 01/24/2021 Are You Deaf Or Do You Have Serious Difficulty Hearing? No [email or web address] Information not available 01/24/2021 What Type Of Diet Are You Following? REGULAR [email or web address] Information n ot available 01/24/2021 What Is The Highest Grade Or Level Of School You Have Completed Or The Highest Degree You Have Received? [id number] [email or web address] Information not available 01/24/2021 Are There Any Guns Present In Your Home? No [email or web address] Information not available 01/24/2021 What Was The Date Of Your Most Recent Tobacco Screening? 01/28/2024 [email or web address] Information not available 01/28/2024 Do You Use Protection During Sex? No [email or web address] Information not available 01/24/2021 Do You Use Your Seat Belt Or Car Seat Routinely? Yes [email or web address] Information not available 01/24/2021 Are You Sexually Active? Yes [email or web address] Information not available 06/22/2025 Do You Have Smoke And Carbon Monoxide Detectors In Your Home? Yes Information not available 01/24/2021 How Much Tobacco Do You Smoke? No [email or web address] Information not available 09/15/2020 Do You Use Sunscreen Routinely? No [email or web address] Information not available 01/24/2021 Has Tobacco Cessation Counseling Been Provided? No [email or web address] Information not available 12/10/2023 How Many Years Have You Smoked Tobacco? 0 [email or web address] Information not available 09/03/2023 Have You Used IV Drugs? No [email or web address] Information not available 01/24/2021 Do You Have Difficulty Walking Or Climbing Stairs? No [email or web address] Information not available 12/10/2023 Sex: Unknown Functional Status Question Answer Note LastModified by Organizat ion Details LastModified Time Do you use any illicit or recreational drugs? No Information not available 01/24/2021 Do you or have you ever used any other forms of tobacco or nicotine? No [email or web address] Information not available 12/10/2023 What is your level of alcohol consumption? None [email or web address] Information not available 09/13/2024 Do you or have you ever used smokeless tobacco? Never used smokeless tobacco [email or web address] Information not available 12/10/2023 Are you currently employed? Yes [email or web address] Information not available 06/22/2025 Are you able to walk independently without assistance or assistive devices? YESWOREST [email or web address] Information not available 01/24/2021 Are you able to care for yourself independently? 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 No [email or web address] Information not available 12/10/2023 Do you or have you ever used e-cigarettes or vape? Never used electronic cigarettes [email or web address] Information not available 12/10/2023 What is your exercise level? Occasional [email or web address] Information not available 09/15/2020 Mental Status Question Answer Note LastModified by Organization D etails LastModified Time Do you feel stressed (tense, restless, nervous, or anxious, or unable to sleep at night)? [id number] [email or web address] Information not available 07/02/2023 Family History Relationship Description Onset Age of this Age Resolved Age Notes LastModified by Organization Details LastModified Time Mother Cyst of ovary Not available 2024 10:59:33 Mother Endometritis Not avail able 11/07/2025 10:59:33 Mother Uterine adenomyosis [email or web address] Not available 10/18 10:59:33 Mother Hypertensive disorder Not available 2024 16:39:17 Mother Hypertensive disorder [email or web address] Not available 2024 10:59:33 Paternal Grandfather Malignant neoplasm of prostate [email or web address] Not available 2024 10:59:33 Medical History Condition [...] mcg/0.3 mL dose 10/30/2021 completed Ileana corley, [facility] 05/07/2023 11:42:10 Influenza, MDCK, quadrivalent, PF 08/14/2023 completed Alyssia Wills jory, [facility] 08/26/2024 11:31:51 COVID-19, mRNA, LNP-S, PF, jono-sucrose, 30 mcg/0.3 mL 08/14/2023 completed Alyssia Wills jory, [facility] 08/26/2024 11:31:51 Past Encounters Encounter ID Performer Location Encounter Start Date Encounter Closed Date Diagnosis/Indication Diagnosis SNOMED-CT Code Diagnosis ICD10 Code Diagnosis IMO Codes Diagnosis Note [id number] [facility] [address],[place] [address] 09/15/2020 09:15:29 09/15/2020 15:38:55 Trying to conceive [id number] Z31.9 [id number] Sloan Bañuelos MD [facility] [address],[place] [address] 11/03/2020 14:35:08 11/03/2020 15:20:34 Gynecologic examination 30301120 Z01.419 This patient is here for her annual exam. A thorough history was taken. A physical exam was performed. Age appropriat e routine health screening was ordered, performed, and discussed. Recommende d testing was ordered. She was asked to follow up in one year. She will be informed of any test results. Pap - today [id number] Sloan Bañuelos MD [facility] [address],[facility] [place] [address] 01/24/2021 16:50:01 01/24/2021 17:07:01 screening [id number] Z36.87 [id number] [facility] [address],[place] [address] 01/24/2021 16:50:52 01/26/2021 15:03:09 Amenorrhea 38965800 N91.2 [id number] Sloan Bañuelos MD [facility] [address],[place] [address] 02/21/2021 16:33:01 02/22/2021 14:51:07 screening 347912576 Z36.82 [id number] MD Christian Batista [address],[place] [address] 02/21/2021 16:33:19 02/22/2021 14:52:12 Routine care 373740455 Z34.00 [id number] Sloan Bañuelos MD [facility] [address],[place] [address] 1 03/09/2021 15:50:41 03/10/2021 22:29:40 Urinary tract infectious disease 61847429 N39.0 [id number] Sloan Bañuelos MD [facility] [address],[place] [address] 03/22/2021 16:01:04 03/22/2021 17:24:32 [id number] Leighann [facility] [address],[place] [address] 03/22/2021 16:07:13 03/22/2021 17:22:24 Routine care 816341770 Z34.92 [id number] Leighann Servin [facility] [address],[place] [address] 1 04/19/2021 14:30:04 04/19/2021 16:04:56 Routine care 922037966 Z34.92 [id number] Sloan Bañuelos MD [facility] [address],[place] [address] 04/19/2021 14:29:35 04/19/2021 15:34:29 screening for malformation 611110524 Z36.3 [id number] Brenda Mares MD [facility] [address],[place] [address] 1 05/16/2021 15:38:09 05/16/2021 16:42:43 condition affecting obstetrical care of mother 123793237 O35.8XX0 Z3A.24 [id number] Brenda Mares MD [facility] [address],[place] [address] 05/16/2021 15:38:38 05/16/2021 16:42:23 Routine care 730018530 Z34.02 [id number] [facility] [address],[place] [address] 06/13/2021 09:19:56 06/13/2021 09:56:03 Routine care 519728246 Z34.93 [id number] Brenda Mares MD [facility] [address],[place] [address] 1 06/27/2021 15:42:12 06/28/2021 13:54:16 Routine care 143848412 Z34.02 [id number] Leighann Servin [facility] [address],[place] [address] 07/12/2021 11:10:00 07/12/2021 14:04:44 Routine care 459723485 Z34.92 [id number] [facility] [address],[place] [address] 07/25/2021 09:34:38 07/25/2021 10:25:41 Routine care 762221736 Z34.93 [id number] [facility] [address],[place] [address] 1 08/08/2021 12:00:42 08/08/2021 15:22:16 Routine care 824477811 Z34.93 [id number] [facility] [address],[place] [address] 2021 11:05:23 2021 11:44:15 Routine care 008871110 Z34.93 [id number] [facility] [address],[place] [address] 08/24/2021 12:45:45 08/24/2021 14:19:00 Routine care 117755115 Z34.93 [id number] [facility] [address],[place] [address] 08/31/2021 10:52:35 08/31/2021 11:35:45 Routine care 912801301 Z34.93 [id number] [facility] [address],[place] [address] 09/05/2021 10:29:26 09/05/2021 12:14:54 Routine care 021765393 Z34.93 [id number] [facility] [address],[place] [address] 1 10/05/2021 15:22:55 10/05/2021 16:40:00 care 752048376 Z39.2 [id number] [facility] [address],[place] [address] 10/19/2021 13:58:32 10/19/2021 14:57:05 Insertion of intrauterine contraceptive device 68489294 Z30.430 [id number] [facility] [address],[place] [address] 11/21/2021 15:00:10 11/21/2021 17:41:28 IUD check 901022704 Z30.431 [id number] [facility] [address],[place] [address] 01/16/2022 09:23:55 01/16/2022 10:08:29 Anxiety 30208967 F41.9 [id number] [facility] [address],[place] [address] 02/20/2022 17:16:25 02/20/2022 17:52:54 Anxiety 27465291 F41.9 [id number] [facility] [address],[place] [address] 08/21/2022 12:02:15 08/21/2022 13:05:04 Gynecologic examination 71372905 Z01.419 [id number] [facility] [address],[place] [address] 11/27/2022 16:45:22 11/28/2022 16:57:42 Acute pelvic pain 380602348 R10.2 check pelvic us Removal of intrauterine device 36752733 Z30.432 continue vitamin call with +UPT [id number] Sloan Bañuelos MD [facility] [address],[place] [address] 12/03/2022 12:26:05 12/03/2022 13:34:18 Acute pelvic pain 218595081 R10.2 [id number] Sloan Bañuelos MD [facility] [address],[place] [address] 05/07/2023 10:55:01 05/07/2023 11:25:04 [id number] [facility] [address],[place] [address] 1 05/07/2023 10:55:49 05/07/2023 12:17:06 Amenorrhea 59488152 N91.2 reviewed office, precaution s, folder plan new ob and first look, ok for zofran at 10 weeksconti nue sertraline plan asa at 12 weeks hx elevated bp a the end of last Venereal d isease screening 704989148 Z11.3 Fatigue 45558209 R53.83 check labs today [id number] Sloan Bañuelos MD [facility] [address],[place] [address] 06/04/2023 14:02:50 06/04/2023 14:37:43 screening 266096713 Z36.82 [id number] [facility] [address],[place] [address] 06/04/2023 14:03:42 06/04/2023 15:44:53 Gestation period, 12 weeks 45982862 Z3A.12 Routine an tenatal care 692293178 Z34.93 Nausea and vomiting 1693 2000 R11.2 [id number] [facility] [address],[place] [address] 07/02/2023 15:50:09 07/02/2023 16:24:20 Routine care 623338371 Z34.93 [id number] Sloan Bañuelos MD [facility] [address],[place] [address] 1 07/30/2023 14:55:31 07/30/2023 16:20:51 screening 302432577 Z36.3 [id number] [facility] [address],[place] [address] 07/30/2023 14:55:50 07/30/2023 16:51:40 Routine care 419014840 Z34.93 [id number] [facility] [address] [place] [address] 08/20/2023 15:10:54 08/20/2023 15:41:58 Routine care 160316631 Z34.93 Uterine co ntractions present 177422005 O80 [id number] [facility] [address] [place] [address] 09/03/2023 17:07:20 09/03/2023 17:52:08 Routine care 309337903 Z34.93 [id number] [facility] [address] [place] [address] 09/19/2023 09:37:21 09/19/2023 10:02:37 Routine care 866213675 Z34.93 [id number] [facility] [address] [place] [address] 10/01/2023 10:47:32 10/02/2023 09:00:58 Urinary symptoms 361425252 R39.9 [id number] [facility] [address],[place] [address] 10/03/2023 10:42:44 10/03/2023 11:37:46 Routine care 294688120 Z34.93 - induced hypertension 19271270 O13.9 Recurrent urinary tract infection 429862541 N39.0 Herpes zoster 0241371 B0 2.9 [id number] [facility] [address],[place] [address] 10/07/2023 16:25:18 10/07/2023 18:35:39 Acute urinary tract infection 159876653 N39.0 [id number] Sloan Bañuelos MD [facility] [address],[place] [address] 10/16/2023 10:20:05 10/16/2023 10:58:49 -induced hypertension 63805927 O13.9 Z3A.30 [id number] Sloan Bañuelos MD [facility] [address],[place] [address] 10/16/2023 10:20:55 10/16/2023 12:28:40 Routine care 731512349 Z34.00 [id number] [facility] [address],[place] [address] 10/24/2023 10:36:02 10/24/2023 11:50:22 Routine care 570119762 Z34.93 [id number] Sloan Bañuelos MD [facility] [address] [place] [address] 10/29/2023 12:34:04 10/29/2023 13:39:44 Abnormal glucose tolerance in mother complicating , childbirth AND/OR puerperium 72586729 O99.810 Z3A.32 [id number] [facility] [address] [place] [address] 10/29/2023 12:34:38 10/29/2023 14:34:42 Routine care 081039527 Z34.93 Urinary symptoms 9726013 08 R39.9 [id number] [facility] [address],[place] [address] 11/05/2023 11:45:56 11/05/2023 12:17:00 Routine care 265740659 Z34.93 [id number] [facility] [address],[place] [address] 1 11/12/2023 10:18:38 11/12/2023 11:15:18 Routine care 201019403 Z34.93 [id number] Sloan Bañuelos MD [facility] [address],[place] [address] 1 11/12/2023 10:19:49 11/12/2023 11:09:05 High risk due to history of labor 353370387 O09.219 Z3A.34 [id number] [facility] [address],[place] [address] 11/26/2023 11:07:05 11/26/2023 12:03:19 Routine care 889848329 Z34.93 [id number] [facility] [address],[place] [address] 12/03/2023 17:07:42 12/03/2023 17:40:17 Routine care 406877140 Z34.93 [id number] [facility] [address],[place] [address] 12/10/2023 13:54:40 12/10/2023 15:16:46 Routine care 152318271 Z34.93 [id number] [facility] [address],[place] [address] 1 12/17/2023 12:21:52 12/17/2023 19:03:24 [id number] [facility] [address],[place] [address] 12/17/2023 17:19:23 12/17/2023 18:39:20 Routine care 481841043 Z34.93 [id number] Sloan Bañuelos MD [facility] [address],[place] [address] 12/17/2023 18:11:28 12/18/2023 10:04:26 Reduced movement 843731110 O36.8199 Z3A.39 [id number] [facility] [address],[place] [address] 12/22/2023 13:22:21 12/22/2023 13:25:44 [id number] [facility] [address],[place] [address] 01/16/2024 14:45:00 01/16/2024 15:19:06 care 182376895 Z39.2 [id number] [facility] [address],[place] [address] 01/23/2024 12:17:44 01/23/2024 13:00:35 Pain of breast 80410877 N64.4 if increased pain, redness fever call and we call out antibiotic otherwised iflucan x 2 weeks continue oral thrush rx for baby Mastitis a ssociated with 724347900 O91.23 [id number] [facility] [address],[place] [address] 01/28/2024 15:55:36 01/28/2024 17:40:41 Screening procedure 74391860 Z13.9 Venereal d isease screening 529825248 Z11.3 Insertion of intrauterine contraceptive device 21798049 Z30.430 pt chloe well, f/u 1 month IUD check [id number] [facility] [address],[place] [address] 02/27/2024 10:09:23 02/27/2024 11:02:11 IUD check 902811782 Z30.431 f/u wwe. iud in place [id number] Sloan Bañuelos MD [facility] [address],[facility] [place] [address] 09/13/2024 10:17:34 09/13/2024 11:23:46 Gynecologic examination 68780532 Z01.419 Annual gynecologi mitchell exam performed. Patient will come back in a year unless there are new symptoms. Suggest Calcium with Vitamin D if not eating in diet. Patient advised to get annual flu shot. Recommend yearly physicals and perform monthly breast exams. Genetic testing is available for patients with family history of cancer. Engage in safe sexual practices, use condoms. Encouraged to have daily exercise. Avoid tobacco and illicit drugs, moderation of alcohol. If BMI greater than 25 dietary consult advised. If you have any questions please call or email. mammogram- n/a colon cancer screening - n/a DEXA scan- n/a Pap smear- pap with HPV testing collected laboratory evaluation -PCP STI testing - declined Secondary amenorrhea 156 264345 N91.1 Discussed that cycles can be irregular/ delayed after having hormonal IUD removed in addition to fully breastfeed ing.Discus sed that patient may try using ovulation strips to evaluate for ovulation each month, however, the best indicator is monthly cycles.Pat ient to continue taking PNV daily as ovulation will occur before menses.Pat ient to call office if she doesn't start period after she decides to start weaning down breastfeed ing intervals. Patient verbalized understand ing. [id number] Bren Cole CNM [facility] [address] [address] 06/18/2024 11:02:28 06/18/2024 13:03:00 Removal of intrauterine contraceptive device 2934490443 Z30.432 continue vitamin [id number] OLIVA DOSS MD [facility] [address],[place] [address] 07/21/2024 17:00:21 07/21/2024 18:03:20 Urinary symptoms 790325205 R39.9 [id number] Sloan Bañuelos MD [facility] [address],[place] [address] 11/18/2024 14:00:28 11/18/2024 15:32:26 Urinary symptoms 681630620 R39.9 Patient presents with symptoms of UTI. Advised to drink clear fluids, Tylenol for pain and take prescribed medication s as instructed . Patient encouraged to follow up within 1 week if not improving. Urine culture sent. Secondary amenorrhea 156 136798 N91.1 Discussed that secondary amenorrhea still likely due to routine breastfeed ing.Discus sed that studies on lactationa l amenorrhea looked at breastfeed ing q4 hours during the day and q6 hours at night, and patient may need to wean back breastfeed ing longer to regain menstrual cycles again.Will send labs to r/o hormonal imbalance. Vaginal discharge 633758 006 N89.8 Discussed empirical treatment with fluconazol e for suspected yeast infection based on reported symptoms and physical exam findings.D iscussed vulvar care guidelines in addition to laundry/sk in irritants to avoid. [id number] Sloan Bañuelos MD [facility] [address],[place] [address] 01/24/2025 16:38:00 01/24/2025 17:06:04 Urinary symptoms 685373178 R39.9 Patient presents with symptoms of UTI. Results of dipstick were negative for UTI. Bilateral CVA tenderness noted on exam. Advised to drink clear fluids, Tylenol for pain and take prescribed medication s as instructed . Urine culture sent. Patient encouraged to follow up within 1 week if not improving. Vaginal discharge 050490 006 N89.8 Discussed empirical treatment with fluconazol e for suspected yeast infection based on reported symptoms and physical exam findings.D iscussed vulvar care guidelines in addition to laundry/sk in irritants to avoid. [id number] Sloan Bañuelos MD [facility] [address],[place] [address] 05/30/2025 16:45:03 05/30/2025 17:09:10 care: obstetric risk 238556337 O09.291 Z36.87 Z3A.01 3498869 [id number] MD Christian Batista [address],[place] [address] 06/22/2025 16:23:18 06/22/2025 16:59:29 [id number] [facility] [address],[place] [address] 06/22/2025 16:23:39 06/22/2025 17:53:44 Gestation period, 8 weeks 42793803 Z3A.08 3598163 [id number] Sloan Bañuelos MD [facility] [address],[place] [address] 07/13/2025 16:28:49 07/13/2025 17:08:45 screening 806183243 Z36.82 Z3A.12 625965 [id number] [facility] [address],[place] [address] 07/13/2025 16:29:12 07/13/2025 17:49:44 Acute urinary tract infection 304724668 N39.0 [id number] Recurrent urinary tract infection 680666933 N39.0 391816 Gestation period, 12 weeks 00553775 Z3A.12 4365325 [id number] [facility] [address],[place] [address] 08/12/2025 11:43:57 08/12/2025 14:52:33 Gestation period, 17 weeks 10517421 Z3A.17 6500022 [id number] Sloan Bañuelos MD [facility] [address],[place] [address] 09/02/2025 14:26:20 09/02/2025 15:29:07 Screening status 584964140 Z36.3 Z3A.20 2408722625 [id number] [facility] [address],[place] [address] 09/02/2025 14:26:36 09/02/2025 15:47:28 Gestation period, 20 weeks 63558099 Z3A.20 0315186 [id number] Bren Cole CNM [facility] [address],[place] [address] 09/30/2025 16:49:30 10/03/2025 08:55:10 Gestation period, 23 weeks 05635104 Z3A.23 6775741 [id number] Bren Cole CNM [facility] [address],[place] [address] 10/24/2025 09:56:35 10/24/2025 11:37:37 Gestation period, 27 weeks 62030305 Z3A.27 5379420 [id number] Bren Cole CNM [facility] [address],[place] [address] 11/07/2025 10:59:28 11/07/2025 11:41:11 Gestation period, 29 weeks 56724083 Z3A.29 9842878 Nausea and vomiting 1693 1999 R11.2 [id number] Health Concerns Section Related Observation LastModified by Organization Detai ls LastModified Time None Recorded Concern Status LastModified by Organization Details LastModified Time None Recorded Advance Directives Directive N: Payers Insurance Date Sequence Insurance Name Policy Number Policy Lamas Covered Member ID Lamas Member ID Guarantor Name 11/11/2025 1 [facility] [id number] Herbert Martin [id number] Ivan Martin 07/07/2024 1 [facility] [id number] Herbert Martin [id number] Ivan Martin Notes Date Note Type Note Provider Name and Address Organization Details Recorded Time 09/02/2025 text/html Generic HPI TemplateReported by Patient [address], [place], [address], [facility] 09/02/2025 15:46:34 09/30/2025 text/html Generic HPI TemplateReported by Patient [address], [place], [address], [facility] 10/02/2025 17:44:56 10/24/2025 text/html Generic HPI TemplateReported by Patient Bren Rosalesgle, CNM [address], [place], [address], [facility] 10/24/2025 11:05:04 11/07/2025 text/html Generic HPI TemplateReported by Patient Bren Griffin RAFAEL Cole [address], [place], [address], [facility] 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 [employer] Status 02/22/20 21 1 B Positive 145 CLOSED Fetus Data First Name Last Name Admitted to NICU Weight (g) Sex Living Outcome Pediatric Complications Fetus ID Race Codes Race Delivery Type 3572.03 7 F true Full Term terminal meconium 8904 Vaginal Delivery Rober Calculation Initial Rober Date Initial Exam Date Initial Exam Provider Initial Ultrasound Date Last Menstrual Period Date Ultra Sound Weeks Gestation 08/25/2021 02/21/2021 01/24/2021 11/18/2020 8 Eighteen To Twenty Week Rober Update Ultra Sound Date Fundal Height At Umbil Quickening Date Ultra Sound Latest Weeks Gestation Final Rober Confirmed By Final Rober Confirmed Date Final Rober Date Ultra Sound Latest Days Gestation 0 [email or web address] 02/21/2021 09/05/20 21 0 Pre- Flowsheet Flowsheet Date 02/21/2021 Burch Score Blood Edema Fundus Height Fundus Units Glucose Ketones Leukocytes Nitrite Labor Signs Protein Cervic Dilation Cervic Effacement Cervic Station 13 Type Weight in lbs Pre/Post Dialysis Refused Weight 144.569119406944 BP Diastolic BP Location Tested BP Systolic BP Type 74 R arm 129 sitting Fetus Heart Rate Present A 145 Fetus Movement Comments This patient is a 25-year-ol d 1 at 13 weeks gestation who presents for initial care. She has an unremarkable medical, surgical, obstetric history. She will begin routine care. Flowsheet Date 03/09/2021 Burch Score Blood Edema Fundus Height Fundus Units Glucose Ketones Leukocytes Nitrite Labor Signs Protein Cervic Dilation Cervic Effacement Cervic Station Type Weight in lbs Pre/Post Dialysis Refused BP Diastolic BP Location Tested BP Systolic BP Type Fetus Heart Rate Present Fetus Movement Comments Flowsheet Date 03/22/2021 Burch Score Blood Edema Fundus Height Fundus Units Glucose Ketones Leukocytes Nitrite Labor Signs Protein Cervic Dilation Cervic Effacement Cervic Station Type Weight in lbs Pre/Post Dialysis Refused BP Diastolic BP Location Tested BP Systolic BP Type Fetus Heart Rate Present Fetus Movement Comments Flowsheet Date 03/22/2021 Burch Score Blood Edema Fundus Height Fundus Units Glucose Ketones Leukocytes Nitrite Labor Signs Protein Cervic Dilation Cervic Effacement Cervic Station none trace Type Weight in lbs Pre/Post Dialysis Refused Weight 144.596189476583 BP Diastolic BP Location Tested BP Systolic BP Type 76 133 Fetus Heart Rate Present Fetus Movement A Yes Comments Doing well. AFP to be drawn today. Having a girl. Flowsheet Date 04/19/2021 Burch Score Blood Edema Fundus Height Fundus Units Glucose Ketones Leukocytes Nitrite Labor Signs Protein Cervic Dilation Cervic Effacement Cervic Station Type Weight in lbs Pre/Post Dialysis Refused BP Diastolic BP Location Tested BP Systolic BP Type Fetus Heart Rate Present Fetus Movement Comments Flowsheet Date 04/19/2021 Burch Score Blood Edema Fundus Height Fundus Units Glucose Ketones Leukocytes Nitrite Labor Signs Protein Cervic Dilation Cervic Effacement Cervic Station none 20 trace Type Weight in lbs Pre/Post Dialysis Refused Weight 149.348969283037 BP Diastolic BP Location Tested BP Systolic BP Type 71 119 Fetus Heart Rate Present Fetus Movement A Yes Comments Doing well. Baseline anatomy today. EIF in LV. Will await recommendations. Flowsheet Date 05/16/2021 Burch Score Blood Edema Fundus Height Fundus Units Glucose Ketones Leukocytes Nitrite Labor Signs Protein Cervic Dilation Cervic Effacement Cervic Station Type Weight in lbs Pre/Post Dialysis Refused BP Diastolic BP Location Tested BP Systolic BP Type Fetus Heart Rate Present Fetus Movement Comments Flowsheet Date 05/16/2021 Burch Score Blood Edema Fundus Height Fundus Units Glucose Ketones Leukocytes Nitrite Labor Signs Protein Cervic Dilation Cervic Effacement Cervic Station neg none 22 trace Type Weight in lbs Pre/Post Dialysis Refused Weight 155.17317637395 BP Diastolic BP Location Tested BP Systolic BP Type 73 124 Fetus Heart Rate Present A 160 Fetus Movement A Yes Comments Doing very well. Some back p ain- mid. Discussed OTCs, massage. US today EIF still present, discussed inconsequential. 83% growth.GCT next visit. Flowsheet Date 06/13/2021 Burch Score Blood Edema Fundus Height Fundus Units Glucose Ketones Leukocytes Nitrite Labor Signs Protein Cervic Dilation Cervic Effacement Cervic Station neg trace trace Type Weight in lbs Pre/Post Dialysis Refused Weight 160.523787388287 BP Diastolic BP Location Tested BP Systolic BP Type 66 108 Fetus Heart Rate Present Fetus Movement A Yes Comments patient states that having B H contractions and swelling. reviewed precautions wear maternity belt, hydration, tylenol , ice ok f/u 2 weeks Flowsheet Date 06/27/2021 Burch Score Blood Edema Fundus Height Fundus Units Glucose Ketones Leukocytes Nitrite Labor Signs Protein Cervic Dilation Cervic Effacement Cervic Station neg trace 28 trace Type Weight in lbs Pre/Post Dialysis Refused Weight 162.729096918058 BP Diastolic BP Location Tested BP Systolic BP Type 77 116 Fetus Heart Rate Present A 135 Fetus Movement A Yes Comments Doing well. Passed 3hr. Doin g Tdap this afternoon. Has had COVID vaccine. Flowsheet Date 07/12/2021 Burch Score Blood Edema Fundus Height Fundus Units Glucose Ketones Leukocytes Nitrite Labor Signs Protein Cervic Dilation Cervic Effacement Cervic Station none 32 trace Type Weight in lbs Pre/Post Dialysis Refused Weight 161.172577272574 BP Diastolic BP Location Tested BP Systolic BP Type 76 120 Fetus Heart Rate Present A 141 Fetus Movement A Yes Comments Doing well. Occasional bh co ntractions. TDAP today. Encouraged flu shot. Encouraged to schedule pre admit. Flowsheet Date 07/25/2021 Burch Score Blood Edema Fundus Height Fundus Units Glucose Ketones Leukocytes Nitrite Labor Signs Protein Cervic Dilation Cervic Effacement Cervic Station neg none trace Type Weight in lbs Pre/Post Dialysis Refused Weight 164.51608241039 BP Diastolic BP Location Tested BP Systolic BP Type 67 104 Fetus Heart Rate Present A 134 Fetus Movement A Yes Comments patient states that having B H contractions and burning with urination. send urine for culture precautions reviewed, f/u 2 week gbs Flowsheet Date 08/08/2021 Burch Score Blood Edema Fundus Height Fundus Units Glucose Ketones Leukocytes Nitrite Labor Signs Protein Cervic Dilation Cervic Effacement Cervic Station neg none trace Type Weight in lbs Pre/Post Dialysis Refused Weight 167.416069768018 BP Diastolic BP Location Tested BP Systolic BP Type 76 118 Fetus Heart Rate Present A 155 Fetus Movement A Yes Comments patient states that having s ome contractions. labor precautions reviewed. cervix soft/ 1/2 cm/ -3 gbs done f/u one week Flowsheet Date 2021 Burch Score Blood Edema Fundus Height Fundus Units Glucose Ketones Leukocytes Nitrite Labor Signs Protein Cervic Dilation Cervic Effacement Cervic Station 35 trace 1cm 60% -1 Type Weight in lbs Pre/Post Dialysis Refused Weight 169.845235105990 BP Diastolic BP Location Tested BP Systolic BP Type 76 132 Fetus Heart Rate Present A 152 Fetus Movement A Yes Comments reviewed precautions has not ed a small increase in pressure and contractions, tired, trying to take naps, f/u one week plan deliver around 40 weeks Flowsheet Date 08/24/2021 Burch Score Blood Edema Fundus Height Fundus Units Glucose Ketones Leukocytes Nitrite Labor Signs Protein Cervic Dilation Cervic Effacement Cervic Station trace none trace 1cm 60% -1 Type Weight in lbs Pre/Post Dialysis Refused Weight 168.583109661489 BP Diastolic BP Location Tested BP Systolic BP Type 81 123 Fetus Heart Rate Present A 154 Fetus Movement A Yes Comments patient states that is havin g some contractions and had some spotting after last visit. precautions reviewed. would like to labor on her own, discussed iol at 41 weeks, f/u one week Flowsheet Date 08/31/2021 Burch Score Blood Edema Fundus Height Fundus Units Glucose Ketones Leukocytes Nitrite Labor Signs Protein Cervic Dilation Cervic Effacement Cervic Station neg trace 37 trace 1cm 60% -1 Type Weight in lbs Pre/Post Dialysis Refused Weight 168.523855887032 BP Diastolic BP Location Tested BP Systolic BP Type 85 124 Fetus Heart Rate Present A 142 Present Fetus Movement A Yes Comments patient states that having s ome swelling, contractions, and nausea. declines 40 week IOL would like to wait until 41, scheduled 09/11 4 pm for cervadil, doing well, precautions reviewed Flowsheet Date 09/05/2021 Burch Score Blood Edema Fundus Height Fundus Units Glucose Ketones Leukocytes Nitrite Labor Signs Protein Cervic Dilation Cervic Effacement Cervic Station neg trace trace Type Weight in lbs Pre/Post Dialysis Refused Weight 170.867802280902 BP Diastolic BP Location Tested BP Systolic BP Type 91 148 90 146 Fetus Heart Rate Present Fetus Movement A Yes Comments patient states that having s ome contractions, discharge, and swelling. rpt bp 142/91 discussed increased bp, rec delivery, pt to LD for MIL Menstrual History Last Menstrual Date Menses Monthly On Bcp Conception Prior Menses Frequency Hcg Plus Date Menarche Onset Age 0111/18/2020 Genetic Screening And Infection History Question Response Note Mental Retardation/Autism false Patient's Age Will Be 35 Years Or Older At Estim ated Date of Delivery false Thalassemia (Macanese, Mauritian, Mediterranean, Or Background): MCV < 80 false Neural Tube Defect (Meningomyelocele, Spina Bifi da, Or Anencephaly) false Congenital Heart Defect false Down Syndrome false Renzo-Sachs (eg, Restorationism, Cajun, [place]) f alse Amparo Disease false Sickle Cell Disease Or Trait () false Hemophilia Or Other Blood Disorders false Muscular Dystrophy false Cystic Fibrosis false Eddy's Chorea false Intellectual Disability/Autism false If Yes, Was Person Tested For Fragile X? false Other Inherited Genetic Or Chromosomal Disorder false Maternal Metabolic Disorder (eg, Type 1 Diabetes , PKU) false Patient Or Baby's Father Had A Child With Defects Not Listed Above false Recurrent Loss, Or A Stillbirth false Medications (including Suppl ements, Vitamins, Herbs, OTC Drugs), Illicit/Recreational Drugs, Alcohol false If Yes, Agent(s) And Strength/Dosage false Any Other Genetic History false Live With Someone With TB Or Exposed To TB false Patient Or Partner Has History Of Genital Herpes false Rash Or Viral Illness Since Last Menstrual Perio d false History Of STD, Gonorrhea, Chlamydia, HPV, Syphi lis false Other Infection History false History of HIV false History of Hepatitis false Prior GBS-infected child false Hemoglobinopathy Or Carrier false Other Structural Defect false Recent Travel History Outside of Country false Delivery Information Delivery Date Delivery Type Labor Anesthesia Weeks Gestation Incision Type Labor Labor Length Hrs Delivered By Post Complications Tubal Sterilization Discharge Date Comments 1 Induce d Regional-Ep idural 40.1 false Kelsey Bren RAFAEL ghtn ebl 435 ccs Discharge Information Feeding Method Contraceptive Method Maternal HG B and HCT Levels Ob Episode Information Episode Created Date Number of Fetuses Patient Bloodtype Patient rh Status Prepregnancy Weight lbs Domestic Partner Domestic Partner Phone Father Name Leak Operator [employer] Plant Status 06/04/20 23 1 B Positive 138 CLOSED Fetus Data First Name Last Name Admitted to NICU Weight (g) Sex Living Outcome Pediatric Complications Fetus ID Race Codes Race Delivery Type 3572.03 7 F true Full Term [id number] Vaginal Delivery Problems Problem Notes Vit D 2000IU daily recchecki ng bs x 2wks -10/29 BS wnl per SP no longer checking Problem Name Start Date End Date Resolution Snomed Code Not e Pyelonephritis [id number] suppr ession allergic to macrobid will do keflex 500mg daily Nausea and vomiting MEDICATION [id number] zofran 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 [id number] zoloft 5 0mg increase to 100mg daily Rober Calculation Initial Rober Date Initial Exam Date Initial Exam Provider Initial Ultrasound Date Last Menstrual Period Date Ultra Sound Weeks Gestation 12/21/2023 05/07/2023 05/07/2023 03/11/2023 7 Eighteen To Twenty Week Rober Update Ultra Sound Date Fundal Height At Umbil Quickening Date Ultra Sound Latest Weeks Gestation Final Rober Confirmed By Final Rober Confirmed Date Final Rober Date Ultra Sound Latest Days Gestation 06/04/20 23 11 09/19/2023 12/21/19 24 5 Pre- Flowsheet Flowsheet Date 06/04/2023 Burch Score Blood Edema Fundus Height Fundus Units Glucose Ketones Leukocytes Nitrite Labor Signs Protein Cervic Dilation Cervic Effacement Cervic Station neg none none trace Type Weight in lbs Pre/Post Dialysis Refused Weight 139.520336503864 BP Diastolic BP Location Tested BP Systolic BP Type 68 111 Fetus Heart Rate Present Fetus Movement A No Comments patient states that having s ome issues with constipation and nausea and vomiting. miralax and stool softenerstart ASA 81 mg. elevated bp at end of first pregnancyanxiety and depression managed well on sertralinescopolamine patch for nausea, continue zofran as wellplan NIPS today Flowsheet Date 07/02/2023 Burch Score Blood Edema Fundus Height Fundus Units Glucose Ketones Leukocytes Nitrite Labor Signs Protein Cervic Dilation Cervic Effacement Cervic Station neg none none trace Type Weight in lbs Pre/Post Dialysis Refused Weight 139.913738141799 BP Diastolic BP Location Tested BP Systolic BP Type 74 112 Fetus Heart Rate Present A 145 Fetus Movement A Yes Comments patient states that having h eadaches, nausea, vomiting and cramping. feels dizzy first day of patch, will just try zofran tomorrow, if still feeling sick may have Phenergan suppository, reviewed claritin for samuel pressure, f/u 4 weeks anatomy Flowsheet Date 07/30/2023 Burch Score Blood Edema Fundus Height Fundus Units Glucose Ketones Leukocytes Nitrite Labor Signs Protein Cervic Dilation Cervic Effacement Cervic Station Type Weight in lbs Pre/Post Dialysis Refused BP Diastolic BP Location Tested BP Systolic BP Type Fetus Heart Rate Present Fetus Movement Comments Flowsheet Date 07/30/2023 Burch Score Blood Edema Fundus Height Fundus Units Glucose Ketones Leukocytes Nitrite Labor Signs Protein Cervic Dilation Cervic Effacement Cervic Station neg none none trace Type Weight in lbs Pre/Post Dialysis Refused Weight 142.229575407810 BP Diastolic BP Location Tested BP Systolic BP Type 68 110 Fetus Heart Rate Present Fetus Movement A Yes Comments patient is having nausea and vomiting. but doing better with zofran, anatomy complete, dbl renal artery, precautions reviewed, redoing babies room this week f/u 4 weeks Flowsheet Date 08/20/2023 Burch Score Blood Edema Fundus Height Fundus Units Glucose Ketones Leukocytes Nitrite Labor Signs Protein Cervic Dilation Cervic Effacement Cervic Station neg none none trace Type Weight in lbs Pre/Post Dialysis Refused Weight 150.447025683627 BP Diastolic BP Location Tested BP Systolic BP Type 72 113 Fetus Heart Rate Present A 145 Present Fetus Movement A Yes Comments patient is here for follow u p from labor and delivery for contractions. cervix closed in LD, contractions resolved by themselves. had a couple the other day precautions reviewed, will give rx for procardia for prn, going to [facility] next week, nausea better occasional zofran Flowsheet Date 09/03/2023 Burch Score Blood Edema Fundus Height Fundus Units Glucose Ketones Leukocytes Nitrite Labor Signs Protein Cervic Dilation Cervic Effacement Cervic Station neg none none trace Type Weight in lbs Pre/Post Dialysis Refused Weight 152.870452182688 BP Diastolic BP Location Tested BP Systolic BP Type 64 103 Fetus Heart Rate Present A 137 Present Fetus Movement A Yes Comments patient states that is nause a. reviewed education and precautions, has procardia xl prn if needed was in hospital last weekend. no cervical dilation, f/u 4 weeks with GCT Flowsheet Date 09/19/2023 Burch Score Blood Edema Fundus Height Fundus Units Glucose Ketones Leukocytes Nitrite Labor Signs Protein Cervic Dilation Cervic Effacement Cervic Station neg none none trace Type Weight in lbs Pre/Post Dialysis Refused Weight 152.702174397385 BP Diastolic BP Location Tested BP Systolic BP Type 68 105 Fetus Heart Rate Present A 150 Fetus Movement A Yes Comments patient is here for follow u p on pyelonephritis. feeling much better, send urine for culture precautions and education Flowsheet Date 10/01/2023 Burch Score Blood Edema Fundus Height Fundus Units Glucose Ketones Leukocytes Nitrite Labor Signs Protein Cervic Dilation Cervic Effacement Cervic Station Type Weight in lbs Pre/Post Dialysis Refused BP Diastolic BP Location Tested BP Systolic BP Type Fetus Heart Rate Present Fetus Movement Comments Flowsheet Date 10/03/2023 Burch Score Blood Edema Fundus Height Fundus Units Glucose Ketones Leukocytes Nitrite Labor Signs Protein Cervic Dilation Cervic Effacement Cervic Station neg trace none trace Type Weight in lbs Pre/Post Dialysis Refused Weight 155.55104640141 BP Diastolic BP Location Tested BP Systolic BP Type 71 113 Fetus Heart Rate Present Fetus Movement A Yes Comments patient is having some swell ing, rib pain, contractions, discharge, and nausea. start suppressive therapy for hx pyelo and now another UTI. allergic to macrobid. +FM, glucose done, needs 3 hour, pih labs for rib pain and swelling. samuel couple x a week, goes away. hx shingles, starting again on face, will tx with valtrex, education and precaution Flowsheet Date 10/07/2023 Burch Score Blood Edema Fundus Height Fundus Units Glucose Ketones Leukocytes Nitrite Labor Signs Protein Cervic Dilation Cervic Effacement Cervic Station Type Weight in lbs Pre/Post Dialysis Refused BP Diastolic BP Location Tested BP Systolic BP Type Fetus Heart Rate Present Fetus Movement Comments Flowsheet Date 10/16/2023 Burch Score Blood Edema Fundus Height Fundus Units Glucose Ketones Leukocytes Nitrite Labor Signs Protein Cervic Dilation Cervic Effacement Cervic Station Type Weight in lbs Pre/Post Dialysis Refused BP Diastolic BP Location Tested BP Systolic BP Type Fetus Heart Rate Present Fetus Movement Comments Flowsheet Date 10/16/2023 Burch Score Blood Edema Fundus Height Fundus Units Glucose Ketones Leukocytes Nitrite Labor Signs Protein Cervic Dilation Cervic Effacement Cervic Station 30 none trace Type Weight in lbs Pre/Post Dialysis Refused Weight 159.620952375638 BP Diastolic BP Location Tested BP Systolic BP Type 71 R arm 115 sitting Fetus Heart Rate Present A 145 Fetus Movement A Yes Comments patient with persistent pret erm contractions, seen in the labor and delivery yesterday. Resolved, on Procardia, instructed to take Procardia in a scheduled fashion, elevated blood sugars after betamethasone yesterday in the hospital. Prophylactic antibiotics for pyelonephritis. Given precautions on labor. To get RSV and Tdap soon. To follow up in 1 week with blood sugars, labor symptoms Flowsheet Date 10/24/2023 Burch Score Blood Edema Fundus Height Fundus Units Glucose Ketones Leukocytes Nitrite Labor Signs Protein Cervic Dilation Cervic Effacement Cervic Station neg none none trace Type Weight in lbs Pre/Post Dialysis Refused Weight 155.97107398931 BP Diastolic BP Location Tested BP Systolic BP Type 70 113 Fetus Heart Rate Present A 150 Fetus Movement A Yes Comments patient is having contractio ns and swelling. ptl precautions reviewed, taking procardia daily, blood sugars normalizing after BMZ injections, take x 1 more week check growth then if all stable may stop blood sugar checks, precautions reviewed f/u one week Flowsheet Date 10/29/2023 Burch Score Blood Edema Fundus Height Fundus Units Glucose Ketones Leukocytes Nitrite Labor Signs Protein Cervic Dilation Cervic Effacement Cervic Station Type Weight in lbs Pre/Post Dialysis Refused BP Diastolic BP Location Tested BP Systolic BP Type Fetus Heart Rate Present Fetus Movement Comments Flowsheet Date 10/29/2023 Burch Score Blood Edema Fundus Height Fundus Units Glucose Ketones Leukocytes Nitrite Labor Signs Protein Cervic Dilation Cervic Effacement Cervic Station neg none none trace Type Weight in lbs Pre/Post Dialysis Refused Weight 159.134014850996 BP Diastolic BP Location Tested BP Systolic BP Type 71 117 Fetus Heart Rate Present Fetus Movement A Yes Comments patient is having some pain, contractions, discharge and nausea. urine for culture, PTL precautions, call for preadmission f/u 2 weeks with growth reviewed bs log, does not appear to have GDM bpp 06/24 Flowsheet Date 11/05/2023 Burch Score Blood Edema Fundus Height Fundus Units Glucose Ketones Leukocytes Nitrite Labor Signs Protein Cervic Dilation Cervic Effacement Cervic Station neg none 33 none trace Type Weight in lbs Pre/Post Dialysis Refused Weight 160.797649230326 BP Diastolic BP Location Tested BP Systolic BP Type 73 111 Fetus Heart Rate Present A 145 Fetus Movement A Yes Comments patient is having some contr actions and swelling. reviewed ptl precautions, +FM f/u one week Flowsheet Date 11/12/2023 Burch Score Blood Edema Fundus Height Fundus Units Glucose Ketones Leukocytes Nitrite Labor Signs Protein Cervic Dilation Cervic Effacement Cervic Station Type Weight in lbs Pre/Post Dialysis Refused BP Diastolic BP Location Tested BP Systolic BP Type Fetus Heart Rate Present Fetus Movement Comments Flowsheet Date 11/12/2023 Burch Score Blood Edema Fundus Height Fundus Units Glucose Ketones Leukocytes Nitrite Labor Signs Protein Cervic Dilation Cervic Effacement Cervic Station neg none none trace Type Weight in lbs Pre/Post Dialysis Refused Weight 162.412624184013 BP Diastolic BP Location Tested BP Systolic BP Type 72 113 Fetus Heart Rate Present Fetus Movement A Yes Comments patient is having some contr actions. was in hospital last night, contractions resolved. efw 83%, precautions reviewed GBS next visit Flowsheet Date 11/26/2023 Burch Score Blood Edema Fundus Height Fundus Units Glucose Ketones Leukocytes Nitrite Labor Signs Protein Cervic Dilation Cervic Effacement Cervic Station neg trace 35 none trace 1cm 40% -3 Type Weight in lbs Pre/Post Dialysis Refused Weight 163.357387513341 BP Diastolic BP Location Tested BP Systolic BP Type 75 117 Fetus Heart Rate Present A 132 Present Fetus Movement A Yes Comments patient is having some contr actions, swelling, nausea and vomiting. precautions reviewed, education donesmall swelling of right bartholin gland, no infection, soft Flowsheet Date 12/03/2023 Burch Score Blood Edema Fundus Height Fundus Units Glucose Ketones Leukocytes Nitrite Labor Signs Protein Cervic Dilation Cervic Effacement Cervic Station neg trace 35 none trace Type Weight in lbs Pre/Post Dialysis Refused Weight 161.792265495629 BP Diastolic BP Location Tested BP Systolic BP Type 74 110 Fetus Heart Rate Present A 145 Present Fetus Movement Comments patient is having contractio ns, swelling and nausea. doing well +FM, cervix 1.5/60/-2 f/u one week, precautions and education Flowsheet Date 12/10/2023 Burch Score Blood Edema Fundus Height Fundus Units Glucose Ketones Leukocytes Nitrite Labor Signs Protein Cervic Dilation Cervic Effacement Cervic Station trace 37 trace 1cm 70% -2 Type Weight in lbs Pre/Post Dialysis Refused Weight 163.433454632251 BP Diastolic BP Location Tested BP Systolic BP Type 87 R arm 127 sitting Fetus Heart Rate Present A 145 Fetus Movement A Yes Comments Patient is c/o discharge, na usea and vomiting, swelling in feet. doing well, declines IOL, awaiting for labor precautions and education f/u one week Flowsheet Date 12/17/2023 Burch Score Blood Edema Fundus Height Fundus Units Glucose Ketones Leukocytes Nitrite Labor Signs Protein Cervic Dilation Cervic Effacement Cervic Station Type Weight in lbs Pre/Post Dialysis Refused BP Diastolic BP Location Tested BP Systolic BP Type Fetus Heart Rate Present Fetus Movement Comments Flowsheet Date 12/17/2023 Burch Score Blood Edema Fundus Height Fundus Units Glucose Ketones Leukocytes Nitrite Labor Signs Protein Cervic Dilation Cervic Effacement Cervic Station neg none none trace Type Weight in lbs Pre/Post Dialysis Refused Weight 165.253178535746 BP Diastolic BP Location Tested BP Systolic BP Type 77 128 Fetus Heart Rate Present Fetus Movement A Yes Comments patient states that having h eadaches, contractions and discharge. decreased movement. NST R, desires IOL plan friday at 0600precautions and education Flowsheet Date 12/17/2023 Burch Score Blood Edema Fundus Height Fundus Units Glucose Ketones Leukocytes Nitrite Labor Signs Protein Cervic Dilation Cervic Effacement Cervic Station Type Weight in lbs Pre/Post Dialysis Refused BP Diastolic BP Location Tested BP Systolic BP Type Fetus Heart Rate Present Fetus Movement Comments Flowsheet Date 12/19/2023 Burch Score Blood Edema Fundus Height Fundus Units Glucose Ketones Leukocytes Nitrite Labor Signs Protein Cervic Dilation Cervic Effacement Cervic Station Type Weight in lbs Pre/Post Dialysis Refused BP Diastolic BP Location Tested BP Systolic BP Type Fetus Heart Rate Present Fetus Movement Comments Menstrual History Last Menstrual Date Menses Monthly On Bcp Conception Prior Menses Frequency Hcg Plus Date Menarche Onset Age 0403/11/2023 Genetic Screening And Infection History Question Response Note Mental Retardation/Autism false Patient's Age Will Be 35 Years Or Older At Estim ated Date of Delivery false Thalassemia (Macanese, Mauritian, Mediterranean, Or Background): MCV < 80 false Neural Tube Defect (Meningomyelocele, Spina Bifi da, Or Anencephaly) false Congenital Heart Defect false Down Syndrome false Renzo-Sachs (eg, Restorationism, Caj[place], [place]) f alse Amparo Disease false Sickle Cell Disease Or Trait () false Hemophilia Or Other Blood Disorders false Muscular Dystrophy false Cystic Fibrosis false Eddy's Chorea false Intellectual Disability/Autism false If Yes, Was Person Tested For Fragile X? false Other Inherited Genetic Or Chromosomal Disorder false Maternal Metabolic Disorder (eg, Type 1 Diabetes , PKU) false Patient Or Baby's Father Had A Child With Defects Not Listed Above false Recurrent Loss, Or A Stillbirth false Medications (including Suppl ements, Vitamins, Herbs, OTC Drugs), Illicit/Recreational Drugs, Alcohol false If Yes, Agent(s) And Strength/Dosage false Any Other Genetic History false Live With Someone With TB Or Exposed To TB false Patient Or Partner Has History Of Genital Herpes false Rash Or Viral Illness Since Last Menstrual Perio d false History Of STD, Gonorrhea, Chlamydia, HPV, Syphi lis false Other Infection History false History of HIV false History of Hepatitis false Prior GBS-infected child false Hemoglobinopathy Or Carrier false Other Structural Defect false Recent Travel History Outside of Country false Delivery Information Delivery Date Delivery Type Labor Anesthesia Weeks Gestation Incision Type Labor Labor Length Hrs Delivered By Post Complications Tubal Sterilization Discharge Date Comments 4 Induce d Regional-Ep idural 39.5 false Bren Cole CNM Disorder of artery,Mi xed anxiety and depressiv e disorder, Nausea and vomiting, Pyeloneph ritis Discharge Information Feeding Method Contraceptive Method Maternal HG B and HCT Levels Ob Episode Information Episode Created Date Number of Fetuses Patient Bloodtype Patient rh Status Prepregnancy Weight lbs Domestic Partner Domestic Partner Phone Father Name Leak Operator [employer] Plant Status 06/22/20 25 1 B Positive 150 Herbert OPEN Fetus Data First Name Last Name Admitted to NICU Weight (g) Sex Living Outcome Pediatric Complications Fetus ID Race Codes Race Delivery Type [id number] Problems Problem Notes TSH low rpt [id number] growth us Problem Name Start Date End Date Resolution Snomed Code Not e Past history of gestational hypertension 06/22/2025 [id number] first bASA 81 mg daily plan bASA again History of kidney infection 07/13/2025 [id number] plan keflex now and then daily Anxiety 06/22/2025 [id number] sertralin e 100mg daily Rober Calculation Initial [...] 25 19 [email or web address] 09/02/2025 01/22/20 26 5 Pre-eddie Flowsheet Flowsheet Date 06/22/2025 Burch Score Blood [...] Weight in lbs Pre/Post Dialysis Refused Weight 148.628492486631 BP Diastolic BP Location Tested BP Systolic [...] Weight in lbs Pre/Post Dialysis Refused Weight 147.421447951359 BP Diastolic BP Location Tested BP Systolic [...] Weight in lbs Pre/Post Dialysis Refused Weight 148.826464580144 BP Diastolic BP Location Tested BP Systolic [...] Type Weight in lbs Pre/Post Dialysis Refused 152.164162500074 BP Diastolic BP Location Tested BP Systolic [...] Type Weight in lbs Pre/Post Dialysis Refused 158.542590190849 BP Diastolic BP Location Tested BP Systolic [...] Weight in lbs Pre/Post Dialysis Refused Weight 167.535855736635 BP Diastolic BP Location Tested BP Systolic [...] Weight in lbs Pre/Post Dialysis Refused Weight 168.342322132087 BP Diastolic BP Location Tested BP Systolic [...] Method Maternal HG B and HCT Levels Ob Episode Information Episode Created Date Number of Fetuses Patient Bloodtype Patient rh Status Prepregnancy Weight lbs Domestic Partner Domestic Partner Phone Father Name Leak Operator [employer] Status 04/06/20 25 1 CLOSED Fetus Data First Name Last Name Admitted to NICU Weight (g) Sex Living Outcome Pediatric Complications Fetus ID Race Codes Race Delivery Type , Spontane ous [id number] Rober Calculation Initial Rober Date Initial Exam Date Initial Exam Provider Initial Ultrasound Date Last Menstrual Period Date Ultra Sound Weeks Gestation 0 Eighteen To Twenty Week Rober Update Ultra Sound Date Fundal Height At Umbil Quickening Date Ultra Sound Latest Weeks Gestation Final Rober Confirmed By Final Rober Confirmed Date Final Rober Date Ultra Sound Latest Days Gestation 0 0 Menstrual History Last Menstrual Date Menses Monthly On Bcp Conception Prior Menses Frequency Hcg Plus Date Menarche Onset Age Delivery Information Delivery Date Delivery Type Labor Anesthesia Weeks Gestation Incision Type Labor Labor Length Hrs Delivered By Post Complications Tubal Sterilization Discharge Date Comments 5 Discharge Information Feeding Method Contraceptive Method Maternal HG B and HCT Levels
[2025-11-13 17:33] LABS: Add Urine Microscopic? NO; Appearance Urine Clear (Clear); Glucose Urine UA Negative (Negative); Leukocyte Esterase Ur Negative LEU/UL (Negative); Nitrate Urine Negative (Negative); Specific Grav Ur 1.003 (1.001-1.035)
[2025-11-13] MEDS: TERBUTALINE SULFATE 1 MG/ML VIAL 0.25 MG SUB-Q (17:59)
--- NOTE | 2025-12-05 14:44 | PM.OBTRLD ---
OB - Triage/Final Diagnosis Visit Information Comments/Additional reasons for admission: I have assessed the risk for this patient, Dina Martin, and determined that she would benefit from observation care. Evaluation Laboratory results: Laboratory Tests 11/13/25 17:26 Urine Color Yellow Urine Appearance Clear Urine pH 7.5 Ur Specific [place] 1.003 Urine Protein Negative Urine Glucose (UA) Negative Urine Ketones Negative Ur Blood (Man) Negative Urine Nitrate Negative Urine Bilirubin Negative Urine Urobilinogen 0.2 Leukocyte Esterase Rfl Negative Final Diagnosis (1) False labor: Code(s): O47.9 - False labor, unspecified Status: Acute
== END 2025-11-13 19:55 | disposition home or self-care (01) ==
PROVIDERS: Admitting Provider Obstetrics & Gynecology; PCP Family Medicine; Visit Provider Obstetrics & Gynecology
DX: O47.03 False labor before 37 completed weeks of gestation, third trimester (principal); Z3A.30 30 weeks gestation of pregnancy
CPT/HCPCS: 81003; 96372; G0378; G0379; J3105